=== PATIENT | male | born 1945 | race Caucasian/White ===

== ENCOUNTER 2020-04-23 04:07 | Inpatient (IN) | payer OTHER, SELFPAY ==
[2020-04-23] VITALS (30 sets, daily range): BP systolic 105–226; BP diastolic 59–141; PULSE 78–134; RESP 18–33; TEMP 36.6–37.2; O2SAT 91–97; BMI 25.7; BMI 27.4
--- NOTE | 2020-04-23 04:19 | DI.RAD.S_ITS ---
PROCEDURE: XR CHEST 1V INDICATIONS: Shortness of breath TECHNIQUE: One view of the chest was acquired. COMPARISON: None. FINDINGS: Surgical changes and devices: None. Lungs and pleura: Lungs are clear. No pleural effusions or pneumothorax. Mediastinum: Mediastinal contours appear normal. Heart size is normal. Bones and chest wall: No suspicious bony lesions. Overlying soft tissues appear unremarkable. IMPRESSION: No acute cardiopulmonary disease process. Dictated by: Kasey Flores MD, PhD on 04/23/2020 at 9:39 Approved by: Kasey Flores MD, PhD on 04/23/2020 at 9:40
--- NOTE | 2020-04-23 04:26 | ED.GENADULT ---
HPI - General Adult General Chief complaint: Shortness of Breath/Dyspnea Stated complaint: difficulty breathing, some coughing Time Seen by Provider: 04/23/20 04:11 Source: patient Mode of arrival: Ambulatory Limitations: no limitations History of Present Illness HPI narrative: Patient is a 74-year-old male history of persistent atrial fibrillation. Here for evaluation of approximately 24 hours of worsening dyspnea on exertion. He states that it woke him up from sleep at approximately 0100 hours in the morning. He denies any chest pain. He does have some lower extremity swelling. His on Coumadin because of the atrial fibrillation. States he has never been diagnosed with heart failure. No underlying lung issues. States that his symptoms yesterday were really only when he was walking around last night it woke him up from sleep. States that he is taking his medications as directed. Related Data Home Medications Medication Instructions Recorded Confirmed diltiazem HCl [DILT-XR] 240 mg PO DAILY 04/23/20 04/23/20 doxazosin 1 mg PO BEDTIME 04/23/20 04/23/20 hydrochlorothiazide 25 mg PO DAILY 04/23/20 04/23/20 lisinopril 5 mg PO DAILY 04/23/20 04/23/20 lovastatin 20 mg PO BEDTIME 04/23/20 04/23/20 metoprolol succinate 50 mg PO BID 04/23/20 04/23/20 warfarin 5 mg PO BEDTIME 04/23/20 04/23/20 Allergies Allergy/AdvReac Type Severity Reaction Status Date / Time Sulfonamide Allergy Unknown Uncoded 09/29/17 11:51 Review of Systems Constitutional Constitutional: Denies chills, Denies fatigue, Denies fever(s) and Denies headache(s) Eyes Eyes: Denies change in vision ENT Ears, Nose, Mouth, and Throat: Denies headache(s) and Denies sore throat Cardiovascular Cardiovascular: Denies chest pain, Reports dyspnea and Reports dyspnea on exertion Respiratory Respiratory: Denies cough, Reports dyspnea and Reports dyspnea on exertion Gastrointestinal Gastrointestinal: Denies abdominal pain, Denies nausea and Denies vomiting Genitourinary Genitourinary: Denies dysuria Genitourinary: Denies dysuria Musculoskeletal Musculoskeletal: Denies arthralgias and Denies myalgias Comments: Lower extremity edema Integumentary/Breasts Skin/Breast: Denies lesions and Denies rash Neurologic Neurologic: Denies behavioral changes and Denies headache(s) Psychiatric Psychiatric: Denies behavioral changes Endocrine Endocrine: Denies fatigue Hematologic/Lymphatic Hematologic/Lymphatic: Denies easy bleeding and Denies easy bruising Allergic/Immunologic Allergic/Immunologic: Denies urticaria Patient History Medical History Atrial fibrillation (Acute) Hypertension (Acute) Social History Smoking Status: Former smoker Smoking Status: Former smoker alcohol intake frequency: 0-2 drinks per day Substance Use Type: does not use Exam Initial Vital Signs Initial Vital Signs: Vital Signs Temperature 97.9 F 04/23/20 04:14 Pulse Rate 116 H 04/23/20 04:14 Respiratory Rate 30 H 04/23/20 04:14 Blood Pressure 215/141 H 04/23/20 04:14 Pulse Oximetry 94 04/23/20 04:14 Const General: ill appearing Limitations: mental status not altered HENMT Head: normal to inspection and normocephalic Chest Chest: No crepitus and No tenderness Resp Effort & Inspection: not labored and tachypneic Auscultation: rhonchi Cardio Rate: tachycardic Rhythm: abnormal rhythm GI Inspection: non-distended Palpation: soft Back/Spine/Pelvis Back: normal to inspection Skin Lesions: no lesions Rashes: no rashes Neuro General: patient alert, patient awake and patient oriented x3 Cognition: normal cognition Speech: speech normal Extrem General: capillary refill normal and edema Psych Appearance: grossly normal and well kempt Scores GCS Martita coma scale eye opening: Spontaneous [place] coma scale verbal response: Orientated [place] coma scale motor response: Obey commands Martita coma scale total score: 15 Course Orders Ordered: ED Orders 04/23/20 04:19 XR chest 1V Stat 04/23/20 04:20 EKG-12 Lead Stat 04/23/20 04:24 Complete Blood Count AUTO DIFF Stat 04/23/20 04:35 COVID19 -ED/INPAT/OR/L&D Stat 04/23/20 04:38 Comprehensive Metabolic Panel Stat D Dimer Stat Lipase Stat Magnesium Stat NT-proBNP (BNP-Adult 18+) Stat Partial Thromboplastin Time Stat Prothrombin Time INR Stat Troponin & CK Cardiac Panel Stat Potassium Chloride 40 meq/ (Sodium Chloride) 520 mls @ 130 mls/hr IV NOW ONE Stop: 04/23/20 09:11 Last Admin: 04/23/20 05:51 Dose: 130 mls/hr Documented by: CHARO Cosigned by: PAULINA Nitroglycerin (Nitroglycerin) 50 mg in 250 mls @ 3 mls/hr IV TITRATE SHANNAN; Protocol Last Titration: 04/23/20 06:56 Dose: 50 mcg/min, 15 mls/hr Documented by: Titration: 04/23/20 06:31 Dose: 40 mcg/min, 12 mls/hr Documented by: Titration: 04/23/20 06:06 Dose: 30 mcg/min, 9 mls/hr Documented by: Titration: 04/23/20 05:52 Dose: 20 mcg/min, 6 mls/hr Documented by: Admin: 04/23/20 05:30 Dose: 10 mcg/min, 3 mls/hr Documented by: CHARO Discontinued Medications Furosemide (Lasix) 40 mg IV NOW ONE Stop: 04/23/20 04:27 Last Admin: 04/23/20 04:31 Dose: 40 mg Documented by: CHARO Metoprolol Tartrate (Lopressor) 5 mg IV NOW ONE Stop: 04/23/20 04:27 Last Admin: 04/23/20 04:31 Dose: 5 mg Documented by: CHARO Nitroglycerin (Nitro-Bid) 0.5 inch TOP NOW ONE Stop: 04/23/20 04:27 Last Admin: 04/23/20 04:31 Dose: 0.5 inch Documented by: CHARO Potassium Chloride (Potassium Chloride) 40 meq PO NOW ONE Stop: 04/23/20 05:12 Last Admin: 04/23/20 05:28 Dose: 40 meq Documented by: CHARO Potassium Chloride (Potassium Chloride) 40 meq PO NOW ONE Stop: 04/23/20 05:27 Last Admin: 04/23/20 05:28 Dose: Not Given Documented by: CHARO Vital Signs Vital signs: Vital Signs - 8 hr 04/23/20 04:14 04/23/20 04:15 04/23/20 04:46 Temperature 97.9 F Pulse Rate 116 H 134 H 103 H Respiratory Rate 30 H 33 H 27 H Blood Pressure 215/141 H 226/113 H 213/103 H Pulse Oximetry 94 93 93 04/23/20 05:00 04/23/20 05:15 04/23/20 05:30 Temperature Pulse Rate 97 H 102 H 100 H Respiratory Rate 28 H 25 H 27 H Blood Pressure 191/103 H 187/103 H 205/94 H Pulse Oximetry 92 92 92 04/23/20 05:40 04/23/20 05:50 04/23/20 06:00 Temperature Pulse Rate 105 H 105 H 102 H Respiratory Rate 26 H 26 H 20 Blood Pressure 190/93 H 181/104 H 187/91 H Pulse Oximetry 93 93 92 04/23/20 06:10 04/23/20 06:20 04/23/20 06:30 Temperature Pulse Rate 122 H 110 H 114 H Respiratory Rate 30 H 25 H 30 H Blood Pressure 168/88 H 161/81 H 167/84 H Pulse Oximetry 92 92 04/23/20 06:40 Temperature Pulse Rate 105 H Respiratory Rate 27 H Blood Pressure 156/74 H Pulse Oximetry 93 Medical Decision Making Lab Data Lab results reviewed: Yes I reviewed the patient's lab results. Result diagrams: 04/23/20 04:24 04/23/20 04:38 Labs: Lab Results 04/23/20 04/23/20 04/23/20 Range/Units 04:24 04:35 04:38 WBC 8.3 (4.5-11.0) X10^3/uL RBC 4.22 L (4.5-5.9) X10^6/uL Hgb 15.2 (13.5-17.5) g/dL Hct 44.1 (41-53) % MCV 104.5 H (80-100) fL MCH 36.0 H (26-34) PG MCHC 34.5 (30-36) % RDW 13.8 (11.6-14.8) % Plt Count 169 (150-400) X10^3/uL Neut % (Auto) 72.9 (50-75) % Lymph % (Auto) 14.4 L (25-40) % [place] % (Auto) 9.8 (3-14) % Eos % (Auto) 1.9 L (2-4) % Baso % (Auto) 1.0 (0-2) % Neut # (Auto) 6100 (8931-0812) /uL Lymph # (Auto) 1200 (7889-8369) /uL [place] # (Auto) 800 (0-900) /uL Eos # (Auto) 200 (0-450) /uL Baso # (Auto) 100 (0-100) /uL PT 20.6 H (10.1-12.7) SECONDS INR 1.8 H (0.9-1.3) APTT 34 (26.4-36.2) SECONDS D-Dimer (<230) ng/mL Sodium (137-145) mmol/L Potassium (3.4-5.1) mmol/L Chloride (98-107) mmol/L Carbon Dioxide (22-32) mmol/L BUN (9-20) mg/dL Creatinine (0.66-1.25) mg/dL Estimated GFR (>60) mL/min BUN/Creatinine Ratio (6-22) Glucose (80-110) mg/dL Calcium (8.4-10.2) mg/dL Magnesium (1.6-2.3) mg/dL Total Bilirubin (0.2-1.3) mg/dL AST (17-59) IU/L ALT (<50) IU/L Alkaline Phosphatase (38-126) U/L Total Creatine Kinase (55-170) U/L CK-MB (CK-2) (<2.37) ng/mL CK-MB (CK-2) Rel Index (1.5-5.0) % Troponin I (0.01-0.034) ng/mL NT-Pro-B Natriuret Pep (<450) pg/mL Total Protein (6.3-8.2) g/dL Albumin (3.5-5.0) g/dL Globulin (1.7-4.1) g/dL Albumin/Globulin Ratio (1.0-2.8) Lipase (23-300) U/L COVID-19 PCR Negative (Negative) 04/23/20 04/23/20 04/23/20 Range/Units 04:38 04:38 04:38 WBC (4.5-11.0) X10^3/uL RBC (4.5-5.9) X10^6/uL Hgb (13.5-17.5) g/dL Hct (41-53) % MCV (80-100) fL MCH (26-34) PG MCHC (30-36) % RDW (11.6-14.8) % Plt Count (150-400) X10^3/uL Neut % (Auto) (50-75) % Lymph % (Auto) (25-40) % [place] % (Auto) (3-14) % Eos % (Auto) (2-4) % Baso % (Auto) (0-2) % Neut # (Auto) (7193-0453) /uL Lymph # (Auto) (9523-1903) /uL [place] # (Auto) (0-900) /uL Eos # (Auto) (0-450) /uL Baso # (Auto) (0-100) /uL PT (10.1-12.7) SECONDS INR (0.9-1.3) APTT (26.4-36.2) SECONDS D-Dimer 209 (<230) ng/mL Sodium 134 L (137-145) mmol/L Potassium 2.4 L* (3.4-5.1) mmol/L Chloride 93 L (98-107) mmol/L Carbon Dioxide 38 H (22-32) mmol/L BUN 9 (9-20) mg/dL Creatinine 0.76 (0.66-1.25) mg/dL Estimated GFR > 60.0 (>60) mL/min BUN/Creatinine Ratio 11.8 (6-22) Glucose 121 H (80-110) mg/dL Calcium 8.9 (8.4-10.2) mg/dL Magnesium 2.1 (1.6-2.3) mg/dL Total Bilirubin 1.8 H (0.2-1.3) mg/dL AST 30 (17-59) IU/L ALT 18 (<50) IU/L Alkaline Phosphatase 77 (38-126) U/L Total Creatine Kinase 115 (55-170) U/L CK-MB (CK-2) 2.01 (<2.37) ng/mL CK-MB (CK-2) Rel Index 1.7 (1.5-5.0) % Troponin I 0.015 (0.01-0.034) ng/mL NT-Pro-B Natriuret Pep 2070 H (<450) pg/mL Total Protein 6.9 (6.3-8.2) g/dL Albumin 4.1 (3.5-5.0) g/dL Globulin 2.8 (1.7-4.1) g/dL Albumin/Globulin Ratio 1.5 (1.0-2.8) Lipase 69 (23-300) U/L COVID-19 PCR (Negative) Point of Care Testing Glucose POC 113 Point of care testing: Point of Care Testing Glucose POC 113 Imaging Data Chest x-ray: Radiologist's Impression: Diffuse coarsening of the interstitial markings, likely chronic Patchy consolidation within the right middle lobe compatible with superimposed infiltrate. Follow-up chest radiograph after appropriate treatment to document resolution Cardiomegaly ECG Data Attestation: I personally reviewed and interpreted this ECG as follows: Prior ECG tracings: not available for review Interpretation: AFib Ventricular rate 110 Normal axis PVC Nonspecific ST T wave changes MDM Narrative Medical decision making narrative: Patient arrived in atrial fibrillation and tachycardic also hypertensive. He was given metoprolol which did bring his heart rate down. He was also given 40 mg of Lasix and nitro paste. This improved his blood pressure somewhat however upon re-evaluation patient states that he still did not feel better. Patient was then started on a nitro drip. BNP elevated, chest x-ray and physical exam concerning for heart failure. Patient not in extremities respiratory ulloa it was not placed on BiPAP. I did discuss the case with Dr. Mohamud with cardiology who recommended continuing the above modalities. Recommend admitting to the hospital for echocardiogram and further evaluation. I then discussed the case with SUNDAR Rodgers the night hospitalist who evaluated the patient the emergency department. Will admit. Patient also hypokalemic. His potassium was replaced. Critical Care Time Critical Care Time Critical Care Time: Yes Total Critical Care Time: 45 Attestation: The high probability of a clinically significant, sudden or life threatening deterioration of the cardiovascular system(s) required my full and direct attention, intervention and personal management. The aggregate critical care time was [45] minutes. This time is in addition to time spent performing reported procedures but includes the following: [x] Data Review and interpretation [x] Patient assessment and monitoring of vital signs [x] Documentation [x] Medication orders and management Discharge Plan Departure Patient Disposition: Admitted As Inpatient Clinical Impression: CHF (congestive heart failure) Qualifiers: Heart failure type: unspecified Heart failure chronicity: unspecified Qualified Code(s): I50.9 - Heart failure, unspecified A-fib Qualifiers: Atrial fibrillation type: unspecified Qualified Code(s): I48.91 - Unspecified atrial fibrillation Hypertension Qualifiers: Hypertension type: unspecified Qualified Code(s): I10 - Essential (primary) hypertension Admit Date/Time: 04/23/20 06:46 Admit Provider: Yanet Rodgers
[2020-04-23 04:31] LABS: Add Manual Diff / Slide Review NO; Basophils Absolute Auto 100 /uL (0-100); Eosinophils Absolute Auto 200 /uL (0-450); Eosinophils Percent Auto 1.9 % (2-4); Hematocrit 44.1 % (41-53); Hemoglobin 15.2 g/dL (13.5-17.5); Lymphocytes Absolute Auto 1200 /uL (1100-4500); Lymphocytes Percent Auto 14.4 % (25-40); Mean Corpuscular HGB Conc 34.5 % (30-36); Mean Corpuscular Volume 104.5 fL (80-100); Monocytes Absolute Auto 800 /uL (0-900); Monocytes Percent Auto 9.8 % (3-14); Neutrophils Absolute Auto 6100 /uL (1500-7000); Neutrophils Percent Auto 72.9 % (50-75); Platelet Count 169 X10^3/uL (150-400); Red Blood Cell Count 4.22 X10^6/uL (4.5-5.9); Red Cell Distribution Width 13.8 % (11.6-14.8); White Blood Cell Count 8.3 X10^3/uL (4.5-11.0)
[2020-04-23] MEDS: FUROSEMIDE 40 MG/4 ML VIAL IV (04:31)
[2020-04-23] MEDS: NITROGLYCERIN OINT 1 INCH/GM OINT...G. 0.5 INCH TOP (04:31)
[2020-04-23] MEDS: METOPROLOL TARTRATE 5 MG/5 ML INJ IV (04:31)
[2020-04-23 04:55] LABS: INR 1.8 (0.9-1.3); Prothrombin Time 20.6 SECONDS (10.1-12.7)
[2020-04-23 04:58] LABS: PTT Partial Thromboplastin Tim 34 SECONDS (26.4-36.2)
[2020-04-23 05:00] LABS: Alanine Aminotransferase 18 IU/L (<50); Albumin 4.1 g/dL (3.5-5.0); Albumin Globulin Ratio 1.5 (1.0-2.8); Alkaline Phosphatase 77 U/L (38-126); Aspartate Aminotransferase 30 IU/L (17-59); BUN Creatinine Ratio 11.8 (6-22); Bilirubin Total 1.8 mg/dL (0.2-1.3); Blood Urea Nitrogen 9 mg/dL (9-20); Calcium 8.9 mg/dL (8.4-10.2); Carbon Dioxide 38 mmol/L (22-32); Chloride 93 mmol/L (98-107); Creatine Kinase 115 U/L (55-170); Estimated Glomerular Filt Rate > 60.0 mL/min (>60); Globulin 2.8 g/dL (1.7-4.1); Glucose 121 mg/dL (80-110); HEMOLYSIS < 15 (0-50); Lipase 69 U/L (23-300); Sodium 134 mmol/L (137-145); Total Protein 6.9 g/dL (6.3-8.2)
[2020-04-23 05:05] LABS: Potassium 2.4 mmol/L (3.4-5.1)
[2020-04-23 05:08] LABS: COVID19 -Nasal RAPID Negative (Negative)
[2020-04-23 05:11] LABS: NT-proBNP (BNP-Adult 18+) 2070 pg/mL (<450); Troponin I 0.015 ng/mL (0.01-0.034)
[2020-04-23 05:15] LABS: CKMB % Relative Index 1.7 % (1.5-5.0); Creatine Kinase MB 2.01 ng/mL (<2.37)
[2020-04-23] MEDS: POTASSIUM CHLORIDE 20 MEQ/15 ML UDC 40 MEQ PO (05:28)
[2020-04-23] MEDS: NITROGLYCERIN 50 MG/250 ML INFUS..BTL IV (05:30)
[2020-04-23 05:49] LABS: D Dimer 209 ng/mL (<230)
[2020-04-23] MEDS: POTASSIUM CHLORIDE 40 MEQ in SODIUM CHLORIDE 0.9% 500 ML 130 ML IV ×2 (05:51→14:36)
[2020-04-23 06:45] LABS: Magnesium 2.1 mg/dL (1.6-2.3)
--- NOTE | 2020-04-23 07:08 | PC.NURSE ---
Titrate Nitro gtt to have SBP around 140s per Dr. Fraser
--- NOTE | 2020-04-23 07:11 | DI.ECHO.S_ITS ---
[place] +---------+ [facility] +---------+ : : [address] : : : : [id number] : : : : Phone: [phone] Echocardiogram Report + + :Name: LEONARD SANDRA JR Study Date: 04/23/2020 Height: 74 in : :[facility] Weight: 200 lb : : Gender: Male BSA: 2.2 m2 : :: 1945 Age: 74 yrs BP: 150/87 mmHg: :Reason For Study: CONGESTIVE HEART FAILURE : :Ordering Physician: Karen CROWEformed By: Emani Ervin : :Referring: DENNY CROWE : + + Interpretation Summary Afib with RVR; heart rate is 80-114 bpm. Normal LV size and wall thickness; normal wall motion and LV systolic function. EF is 55-60%. Severe biatrial enlargement; mild RV enlargement. Aortic valve leaflets are mildly thickened and calcified with moderate associated AI. Otherwise no significant valvular abnormalities. No prior study available for comparison. Procedure: A two-dimensional transthoracic echocardiogram with color flow and Doppler was performed. The study quality was technically adequate. There is no prior echocardiogram noted for this patient. The patient was in atrial fibrillation with heart rates between 80-114 bpm during the exam. Left Ventricle: The left ventricle is normal in size and wall thickness. The ejection fraction is estimated to be 55-60%. Diastolic function could not be accurately assessed due to atrial fibrillation. Right Ventricle: The right ventricle is mildly dilated. Right ventricular systolic function is mildly reduced. Atria: The left atrium is severely dilated. The right atrium is severely dilated. There is no Doppler evidence for an interatrial shunt. Mitral Valve: There is a flat closure plane of the the mitral valve leaflets. There is trace mitral regurgitation. Aortic Valve: The aortic valve is trileaflet. The aortic valve opens well. There is no aortic valve stenosis. There is moderate aortic regurgitation. Tricuspid Valve: The tricuspid valve is normal in structure and function. There is mild to moderate tricuspid regurgitation. Pulmonic Valve: The pulmonic valve leaflets are thin and pliable; valve motion is normal. There is no pulmonic valvular regurgitation. Great Vessels: The aortic root is not well visualized but is probably normal size. The dimensions of the ascending aorta are normal. The IVC is of normal diameter and collapses greater than 50% with a sniff. This suggests a low right atrial pressure of 3 mm Hg. Pericardium/ Pleura There is no pericardial effusion. There is no pleural effusion. MMode/2D Measurements & Calculations LVIDd: 4.7 cm LVOT diam: 2.1 cm LVIDs: 2.8 cm asc Aorta Diam: 3.3 cm FS: 39.8 % Ao Arch Diam (Prox Trans): 3.4 cm EPSS: 1.5 cm IVSd: 0.89 cm LVPWd: 0.87 cm LV hudson. diameter/BSA (cm/m^2): 2.2 LV sys. diameter/BSA (cm/m^2): 1.3 LA A2 area: 34.1 cm2 RA long axis: 6.0 cm LA A4 area: 28.3 cm2 RA area: 31.6 cm2 LA length (vol): 6.1 cm RA vol: 141.3 ml LA vol: 133.1 ml RA : 65.0 ml/m2 LA vol index: 61.3 ml/m2 IVC diam: 2.4 cm RVD1 (basal): 4.2 cm TAPSE: 1.5 cm Doppler Measurements & Calculations Ao V2 max: 125.1 cm/sec LVOT Max Jocelyn: 86.4 cm/sec Ao V2 mean: 80.3 cm/sec LV V1 max P.0 mmHg Ao max P.3 mmHg LV V1 VTI: 17.3 cm Ao mean P.0 mmHg LIZABETH(I,D): 3.2 cm2 Ao V2 VTI: 19.0 cm LIZABETH(V,D): 2.4 cm2 sev ratio: 0.91 LIZABETH indexed to BSA (cm^2/m^2): 1.5 Med Peak E' Jocelyn: 77.4 cm/sec TR max jocelyn: 351.4 cm/sec Lat Peak E' Jocelyn: 7.5 cm/sec TR max P.9 mmHg MV dec time: 0.15 sec PA V2 max: 80.1 cm/sec MV P1/2t: 47.4 msec PA V2 mean: 52.2 cm/sec PA mean P.3 mmHg PA pr(Accel): 43.0 mmHg MV P1/2t max jocelyn: 108.3 cm/sec SV(LVOT): 61.2 ml MVA(P1/2t): 4.6 cm2 Electronically signed by: Cyndie Herbert M.D. on Reading Physician:04/23/2020 05:22 PM
--- NOTE | 2020-04-23 07:36 | PM.HP.1 ---
History of Present Illness History of Present Illness Date Patient Seen: 04/23/20 Time Patient Seen: 06:30 Chief complaint: difficulty breathing, some coughing Narrative: Agustin Miller is a 74-year-old male history of persistent atrial fibrillation anticoagulated on warfarin and hypertension presented to the emergency department with an approximate 24 hour duration of worsening dyspnea on exertion. He states that it woke him up from sleep at approximately 0100 hours in the morning. He denies any chest pain, abdominal pain, frequent urination or dysuria except for after they gave him the Lasix he states that he has been peeing a lot, denies diarrhea are or constipation, denies peripheral extremity neuropathy. He does agree that he has had some lower extremity swelling. States he has has had atrial fibrillation since his early 40s, he states he has had a CT of his heart as well as an echocardiogram but this was many years ago and has never been diagnosed with heart failure. No underlying lung issues. States that his symptoms yesterday were really only when he was walking around last night it woke him up from sleep. States that he is taking his medications as directed. Patient sees a primary care provider with the [facility]. In the emergency department his blood pressure was 215/141 and he was administered Lopressor 5 mg IV and they applied a nitro paste on him. He was eventually placed on a nitro drip to help control his blood pressure. His potassium was 2.4 and he was given oral potassium 40 mEq as well as IV potassium 40 mEq. He is currently afebrile and at this time his blood pressure is 155/71, heart rate 104, respiratory rate 21, oxygen saturation of 91% on room air, he weighs 90.7 kg with a BMI of 25.7. WBC was 8.3, RBC 4.22, hemoglobin 15.2, hematocrit 44.1, platelet count is 169, sign INR is 1.8, sodium 134, potassium at time of admission was 2.4, chloride 93,, bicarb 38, creatinine 0.76, BUN 9, GFR is greater than 60, glucose 121, magnesium is 2.1, calcium 8.9, total bilirubin is 1.8, rest of his liver enzymes are within normal limits, troponin was 0.015, proBNP 20 70, lipid panel is pending, TSH is pending, and COVID-19 PCR is negative. Patient History Medical History Anticoagulated on warfarin (Acute) Atrial fibrillation (Acute) Hypertension (Acute) Surgical History Hx of hernia repair (Acute) Hx of tonsillectomy (Acute) Family & Social History Family History Father Myocardial infarction Mother Dementia Safety & Behavioral: Feels Safe in Current Yes Environment Tobacco & Substance use: Smoking Status Former smoker alcohol intake frequency 0-2 drinks per day Substance Use Type does not use Meds Home Medications and Allergies Home Medications Medication Instructions Recorded Confirmed Type diltiazem HCl [DILT-XR] 240 mg PO DAILY 04/23/20 04/23/20 History doxazosin 1 mg PO BEDTIME 04/23/20 04/23/20 History hydrochlorothiazide 25 mg PO DAILY 04/23/20 04/23/20 History lisinopril 5 mg PO DAILY 04/23/20 04/23/20 History lovastatin 20 mg PO BEDTIME 04/23/20 04/23/20 History metoprolol succinate 50 mg PO BID 04/23/20 04/23/20 History warfarin 5 mg PO BEDTIME 04/23/20 04/23/20 History Allergies Allergy/AdvReac Type Severity Reaction Status Date / Time Sulfa (Sulfonamide Allergy Unknown Verified 04/23/20 07:16 Antibiotics) Review of Systems Review of Systems ROS: Yes All systems reviewed with the patient and are negative except as otherwise documented Exam Vital Signs (past 8 hours): - 04/23/20 04:14 04/23/20 04:15 04/23/20 04:46 Temperature 97.9 F Pulse Rate 116 H 134 H 103 H Respiratory Rate 30 H 33 H 27 H Blood Pressure 215/141 H 226/113 H 213/103 H Pulse Oximetry 94 93 93 04/23/20 05:00 04/23/20 05:15 04/23/20 05:30 Temperature Pulse Rate 97 H 102 H 100 H Respiratory Rate 28 H 25 H 27 H Blood Pressure 191/103 H 187/103 H 205/94 H Pulse Oximetry 92 92 92 04/23/20 05:40 04/23/20 05:50 04/23/20 06:00 Temperature Pulse Rate 105 H 105 H 102 H Respiratory Rate 26 H 26 H 20 Blood Pressure 190/93 H 181/104 H 187/91 H Pulse Oximetry 93 93 92 04/23/20 06:10 04/23/20 06:20 04/23/20 06:30 Temperature Pulse Rate 122 H 110 H 114 H Respiratory Rate 30 H 25 H 30 H Blood Pressure 168/88 H 161/81 H 167/84 H Pulse Oximetry 92 92 04/23/20 06:40 04/23/20 06:50 04/23/20 07:00 Temperature Pulse Rate 105 H 118 H 104 H Respiratory Rate 27 H 25 H 21 Blood Pressure 156/74 H 179/89 H 155/71 H Pulse Oximetry 93 91 91 Oxygen Delivery Method Room Air Narrative Exam Narrative: Gen: Alert, oriented, well-developed 74 y.o. male, NAD HEENT: normocephalic, atraumatic, conjunctiva clear, sclera non-icteric, oral mucosa pink and moist Neck: supple, full ROM, no JVD, trachea is midline Resp: Lungs CTA, non-labored breathing CV: tachy, no murmur or rubs Abd: soft, non-tender, normoactive BTs Skin: no lesions or rashes, dry and intact Neuro: Alert and oriented X 4 w/no focal deficits. Speech clear and coherent. Extremities: +2 pitting edema, moves all 4 extremities, is ambulatory, negative Shannan?s sign Psyche: normal mood and affect. Objective Labs Result Diagrams: 04/23/20 04:24 04/23/20 04:38 Labs: Laboratory Results - last 24 hr 04/23/20 04/23/20 04/23/20 04:24 04:35 04:38 WBC 8.3 RBC 4.22 L Hgb 15.2 Hct 44.1 MCV 104.5 H MCH 36.0 H MCHC 34.5 RDW 13.8 Plt Count 169 Neut % (Auto) 72.9 Lymph % (Auto) 14.4 L [place] % (Auto) 9.8 Eos % (Auto) 1.9 L Baso % (Auto) 1.0 Neut # (Auto) 6100 Lymph # (Auto) 1200 [place] # (Auto) 800 Eos # (Auto) 200 Baso # (Auto) 100 PT 20.6 H INR 1.8 H APTT 34 D-Dimer Sodium Potassium Chloride Carbon Dioxide BUN Creatinine Estimated GFR BUN/Creatinine Ratio Glucose Calcium Magnesium Total Bilirubin AST ALT Alkaline Phosphatase Total Creatine Kinase CK-MB (CK-2) CK-MB (CK-2) Rel Index Troponin I NT-Pro-B Natriuret Pep Total Protein Albumin Globulin Albumin/Globulin Ratio Lipase COVID-19 PCR Negative 04/23/20 04/23/20 04/23/20 04:38 04:38 04:38 WBC RBC Hgb Hct MCV MCH MCHC RDW Plt Count Neut % (Auto) Lymph % (Auto) [place] % (Auto) Eos % (Auto) Baso % (Auto) Neut # (Auto) Lymph # (Auto) [place] # (Auto) Eos # (Auto) Baso # (Auto) PT INR APTT D-Dimer 209 Sodium 134 L Potassium 2.4 L* Chloride 93 L Carbon Dioxide 38 H BUN 9 Creatinine 0.76 Estimated GFR > 60.0 BUN/Creatinine Ratio 11.8 Glucose 121 H Calcium 8.9 Magnesium 2.1 Total Bilirubin 1.8 H AST 30 ALT 18 Alkaline Phosphatase 77 Total Creatine Kinase 115 CK-MB (CK-2) 2.01 CK-MB (CK-2) Rel Index 1.7 Troponin I 0.015 NT-Pro-B Natriuret Pep 2070 H Total Protein 6.9 Albumin 4.1 Globulin 2.8 Albumin/Globulin Ratio 1.5 Lipase 69 COVID-19 PCR Assessment & Plan Assessment & Plan narrative: Agustin Miller is admitted ICU observation for managment of a hypertensive urgency and new onset CHF exacerbation. Hypertensive urgency, acute, present on admission -patient's presenting blood pressure was 215/141 when he presented to the emergency department. They administered IV Lopressor 5 mg, applied a nitro patch and eventually put him on a nitro drip to better control his blood pressure. Patient will be tapered off his nitro drip per protocol. New onset CHF, acute, present on admission -patient exhibits clinical signs of volume overload with lower extremity swelling and a proBNP of over 2000. He was given IV Lasix 40 mg in the ED. -I have ordered a complete echocardiogram for today Severe hypokalemia of 2.4, acute, present on admission -patient was administered IV potassium 40 mEq and oral potassium 40 mEq in the emergency department. Will repeat potassium at 1:00 p.m. Atrial fibrillation anticoagulated on warfarin, currently subtherapeutic -patient's INR is 1.8 -patient takes warfarin 2.5 mg on 2 days of the week and and 5 mg on 5 days of the week. He will be given 7.5 mg today and will resume 5 mg daily through and then on Wednesday will be taking 2.5 mg. -He will have daily PT INRs -Medical records from his PCP have been requested. VTE prophylaxis: Wells risk score: 1.5 Continue warfarin, Bilateral SCDs Consults: none. Patient is observation status in the ICU due to being on a cardiac drip, I do not anticipate his stay will exceed 2 midnights. FEN: IV saline lock, Heart healthy diet, BMP and magnesium in the am. Dispo: probable discharge to home Code Status: Full code as discussed with patient and his Scores Wells' Criteria for PE Clinical signs and symptoms of DVT: No PE is #1 Dx or equally likely: No Heart rate > 100: Yes Immobilization at least 3 days or surg in previous 4 weeks: No History of PE or DVT: No Hemoptysis: No Malignancy w/Treatment within 6 months or palliative: No Wells' PE Score total: 1.5 Quality VTE Deep Vein Thrombosis/Pulmonary Embolism Present on Admission: No
[2020-04-23 07:41] LABS: Cholesterol 145 mg/dL (140-199); HDL Cholesterol 60 mg/dL (40-60); LDL Cholesterol Calculated 73 mg/dL (<100); Triglycerides 62 mg/dL (35-150)
[2020-04-23] MEDS: WARFARIN 5 MG TABLET 7.5 MG PO (08:39)
[2020-04-23] MEDS: lisinopriL 5 MG TABLET PO (08:40)
[2020-04-23] MEDS: ASPIRIN EC 81 MG TABLET PO (08:40)
[2020-04-23] MEDS: dilTIAZem CD 240 MG CAP PO (08:40)
[2020-04-23] MEDS: METOPROLOL ER 50 MG TABLET PO ×2 (08:40→20:11)
[2020-04-23 08:58] LABS: INR 1.9 (0.9-1.3); Prothrombin Time 22.2 SECONDS (10.1-12.7)
--- NOTE | 2020-04-23 09:37 | PC.NURSE ---
Addendum entered by Judith Forde R.N. 04/23/20 14:44: Pt desaturating to 82-84% when sleeping, placed on 2L NC with sats increasing to 92-95%. Dr. Donato updated. K rider 40 meq currently infusing for K of 2.8. Original Note: Admit Note Patient arrived to room 228 at 0720 from ER via stretcher. Walked to bed SBA, steady on feet. Denied pain, denied nausea. Reports shortness of breath improved from last night, RR in the low 20s. Coarse crackles to bilateral bases noted, SpO2 92-94% RA. Afib RVR on arrival with rate in the 100-120s. BP in the 140s systolic with nitro gtt infusing at 50 mcg/min. PO meds given as scheduled and nitro gtt titrated to off at 0930. BP currently 144/71. HR down to the 80s at rest. 1-2+ pitting edema to BLEs. Oriented to room and to bed/tv/call light controls. Call light within reach. Clothing and glasses with pt, declines to lock up any valuables.
[2020-04-23 14:01] LABS: BUN Creatinine Ratio 12.5 (6-22); Blood Urea Nitrogen 10 mg/dL (9-20); Calcium 8.4 mg/dL (8.4-10.2); Chloride 93 mmol/L (98-107); Estimated Glomerular Filt Rate > 60.0 mL/min (>60); Glucose 120 mg/dL (80-110); HEMOLYSIS < 15 (0-50); Potassium 2.8 mmol/L (3.4-5.1); Sodium 133 mmol/L (137-145)
[2020-04-23 14:07] LABS: Carbon Dioxide 38 mmol/L (22-32)
[2020-04-23] MEDS: POTASSIUM CHLORIDE 20 MEQ TAB 40 MEQ PO ×2 (16:43→20:10)
[2020-04-23] MEDS: LOVASTATIN 20 MG TABLET PO (16:43)
--- NOTE | 2020-04-23 17:31 | P.PN_ITS ---
Subjective Subjective Date Patient Seen: 04/23/20 Interval history: Brief progress note: Patient seen and examined. Physical exam unchanged other than lower extremity bilateral pitting edema now to ankles that is resolving. Agree with admitting provider's assessment and plan. Continue home metoprolol succinate 50 mg twice daily and diltiazem 240 mg daily. Patient's atrial fibrillation now rate controlled in the 80s. Hypertensive urgency resolved. Patient was titrated off of nitroglycerin gtt and lisinopril increased from 5 mg to 20 mg daily for better blood pressure control. Echocardiogram ordered and pending. Continue IV diuresis, fluid restriction, low-sodium diet, strict I&Os and daily weights. Exam Vital Signs (past 8 hours): - 04/23/20 12:00 04/23/20 14:44 04/23/20 15:30 Temperature 98.9 F 98.7 F Pulse Rate 86 96 H Respiratory Rate 20 20 Blood Pressure 150/87 H 176/86 H Pulse Oximetry 94 93 96 Oxygen Delivery Method Room Air,Nasal Cannula Oxygen Flow Rate 2 Objective Labs Result Diagrams: 04/24/20 04:41 04/24/20 04:41 Labs: Laboratory Results - last 24 hr 04/23/20 04/23/20 04/23/20 04:24 04:35 04:38 WBC 8.3 RBC 4.22 L Hgb 15.2 Hct 44.1 MCV 104.5 H MCH 36.0 H MCHC 34.5 RDW 13.8 Plt Count 169 Neut % (Auto) 72.9 Lymph % (Auto) 14.4 L [place] % (Auto) 9.8 Eos % (Auto) 1.9 L Baso % (Auto) 1.0 Neut # (Auto) 6100 Lymph # (Auto) 1200 [place] # (Auto) 800 Eos # (Auto) 200 Baso # (Auto) 100 PT 20.6 H INR 1.8 H APTT 34 D-Dimer Sodium Potassium Chloride Carbon Dioxide BUN Creatinine Estimated GFR BUN/Creatinine Ratio Glucose Calcium Magnesium Total Bilirubin AST ALT Alkaline Phosphatase Total Creatine Kinase CK-MB (CK-2) CK-MB (CK-2) Rel Index Troponin I NT-Pro-B Natriuret Pep Total Protein Albumin Globulin Albumin/Globulin Ratio Triglycerides Cholesterol LDL Cholesterol, Calc HDL Cholesterol Lipase TSH Nasal Screen MRSA (PCR) COVID-19 PCR Negative 04/23/20 04/23/20 04/23/20 04:38 04:38 04:38 WBC RBC Hgb Hct MCV MCH MCHC RDW Plt Count Neut % (Auto) Lymph % (Auto) [place] % (Auto) Eos % (Auto) Baso % (Auto) Neut # (Auto) Lymph # (Auto) [place] # (Auto) Eos # (Auto) Baso # (Auto) PT INR APTT D-Dimer 209 Sodium 134 L Potassium 2.4 L* Chloride 93 L Carbon Dioxide 38 H BUN 9 Creatinine 0.76 Estimated GFR > 60.0 BUN/Creatinine Ratio 11.8 Glucose 121 H Calcium 8.9 Magnesium 2.1 Total Bilirubin 1.8 H AST 30 ALT 18 Alkaline Phosphatase 77 Total Creatine Kinase 115 CK-MB (CK-2) 2.01 CK-MB (CK-2) Rel Index 1.7 Troponin I 0.015 NT-Pro-B Natriuret Pep 2070 H Total Protein 6.9 Albumin 4.1 Globulin 2.8 Albumin/Globulin Ratio 1.5 Triglycerides Cholesterol LDL Cholesterol, Calc HDL Cholesterol Lipase 69 TSH Nasal Screen MRSA (PCR) COVID-19 PCR 04/23/20 04/23/20 04/23/20 04:38 04:38 08:08 WBC RBC Hgb Hct MCV MCH MCHC RDW Plt Count Neut % (Auto) Lymph % (Auto) [place] % (Auto) Eos % (Auto) Baso % (Auto) Neut # (Auto) Lymph # (Auto) [place] # (Auto) Eos # (Auto) Baso # (Auto) PT 22.2 H INR 1.9 H APTT D-Dimer Sodium Potassium Chloride Carbon Dioxide BUN Creatinine Estimated GFR BUN/Creatinine Ratio Glucose Calcium Magnesium Total Bilirubin AST ALT Alkaline Phosphatase Total Creatine Kinase CK-MB (CK-2) CK-MB (CK-2) Rel Index Troponin I NT-Pro-B Natriuret Pep Total Protein Albumin Globulin Albumin/Globulin Ratio Triglycerides 62 Cholesterol 145 LDL Cholesterol, Calc 73 HDL Cholesterol 60 Lipase TSH 0.870 Nasal Screen MRSA (PCR) COVID-19 PCR 04/23/20 04/23/20 08:10 13:43 WBC RBC Hgb Hct MCV MCH MCHC RDW Plt Count Neut % (Auto) Lymph % (Auto) [place] % (Auto) Eos % (Auto) Baso % (Auto) Neut # (Auto) Lymph # (Auto) [place] # (Auto) Eos # (Auto) Baso # (Auto) PT INR APTT D-Dimer Sodium 133 L Potassium 2.8 L Chloride 93 L Carbon Dioxide 38 H BUN 10 Creatinine 0.80 Estimated GFR > 60.0 BUN/Creatinine Ratio 12.5 Glucose 120 H Calcium 8.4 Magnesium Total Bilirubin AST ALT Alkaline Phosphatase Total Creatine Kinase CK-MB (CK-2) CK-MB (CK-2) Rel Index Troponin I NT-Pro-B Natriuret Pep Total Protein Albumin Globulin Albumin/Globulin Ratio Triglycerides Cholesterol LDL Cholesterol, Calc HDL Cholesterol Lipase TSH Nasal Screen MRSA (PCR) Negative for mrsa COVID-19 PCR Quality VTE Deep Vein Thrombosis/Pulmonary Embolism Present on Admission: No
[2020-04-23 19:50] LABS: HEMOLYSIS < 15 (0-50)
[2020-04-23] MEDS: lisinopriL 20 MG TABLET PO (20:09)
[2020-04-23] MEDS: DOXAZOSIN 2 MG TABLET 1 MG PO (20:12)
[2020-04-24] VITALS (51 sets, daily range): BP systolic 156–192; BP diastolic 83–112; PULSE 82–122; RESP 15–35; TEMP 36.8–37.3; O2SAT 86–97
--- NOTE | 2020-04-24 01:15 | PC.NURSE ---
Copping Machine Operator Notes-At 2340 patient was resting in bed, 13 beat run VT noted on monitor, denies chest pain, shortness of breath, or palpitations. A-fib rate 80s-90s, does increase to 130s while ambulating to BR, denies dizziness. BP 163/79, SpO2 94% on 2L, 2-3 second apnea noted while sleeping, will desat to 86%, recovers quickly, crackles bases.
[2020-04-24 05:13] LABS: Add Manual Diff / Slide Review NO; Basophils Absolute Auto 200 /uL (0-100); Eosinophils Absolute Auto 100 /uL (0-450); Eosinophils Percent Auto 1.6 % (2-4); Hematocrit 40.9 % (41-53); Hemoglobin 13.8 g/dL (13.5-17.5); INR 2.6 (0.9-1.3); Lymphocytes Absolute Auto 500 /uL (1100-4500); Lymphocytes Percent Auto 8.2 % (25-40); Mean Corpuscular HGB Conc 33.9 % (30-36); Mean Corpuscular Hemoglobin 35.6 PG (26-34); Mean Corpuscular Volume 105.3 fL (80-100); Monocytes Absolute Auto 900 /uL (0-900); Monocytes Percent Auto 14.6 % (3-14); Neutrophils Absolute Auto 4400 /uL (1500-7000); Neutrophils Percent Auto 71.6 % (50-75); Platelet Count 141 X10^3/uL (150-400); Prothrombin Time 29.4 SECONDS (10.1-12.7); Red Blood Cell Count 3.88 X10^6/uL (4.5-5.9); Red Cell Distribution Width 13.9 % (11.6-14.8); White Blood Cell Count 6.1 X10^3/uL (4.5-11.0)
[2020-04-24 05:21] LABS: Blood Urea Nitrogen 10 mg/dL (9-20); Calcium 8.5 mg/dL (8.4-10.2); Carbon Dioxide 38 mmol/L (22-32); Chloride 97 mmol/L (98-107); Estimated Glomerular Filt Rate > 60.0 mL/min (>60); Glucose 108 mg/dL (80-110); HEMOLYSIS < 15 (0-50); Magnesium 2.1 mg/dL (1.6-2.3); Potassium 3.2 mmol/L (3.4-5.1); Sodium 136 mmol/L (137-145)
[2020-04-24] MEDS: POTASSIUM CHLORIDE 40 MEQ in SODIUM CHLORIDE 0.9% 500 ML 130 ML IV (07:45)
[2020-04-24] MEDS: POTASSIUM CHLORIDE 20 MEQ TAB 40 MEQ PO ×2 (07:47→17:17)
[2020-04-24] MEDS: METOPROLOL ER 50 MG TABLET PO (07:48)
[2020-04-24] MEDS: lisinopriL 20 MG TABLET PO (07:48)
[2020-04-24] MEDS: ASPIRIN EC 81 MG TABLET PO (07:48)
[2020-04-24] MEDS: FUROSEMIDE 40 MG/4 ML VIAL IV ×2 (07:49→17:16)
[2020-04-24] MEDS: dilTIAZem CD 240 MG CAP PO (07:50)
--- NOTE | 2020-04-24 10:54 | PC.NURSE ---
Addendum entered by Shira Rincon R.N. 04/24/20 13:14: 1230-Pt noted to have increased WOB after ambulating from BR with this RN, this is markedly worse than observed this AM. Update to Dr Donato. CTA ordered and obtained. Awaiting results. Spo2 93% RA, dips when falling asleep. Pt likely needs sleep study. Afib on tele. Original Note: Am shift Pt is A/o x4, elevated BP's. K rider and PO K+ given. Pt is eager to d/c when able. in to get update on POC. SBA to BR. Denies pain, IV SL infusing without difficulty. Using call light for needs. Plan to replace K+ and recheck BP this afternoon.
--- NOTE | 2020-04-24 12:25 | DI.CT.S_ITS ---
PROCEDURE: CT ANGIO CHEST INDICATIONS: SOB, Afib subtherapeutic r/o PE TECHNIQUE: After the administration of intravenous contrast, 2 mm thick sections acquired from the pulmonary apices to the posterior costophrenic angles. 3-dimensional maximum intensity projection (MIP) coronal and sagittal reformats were then acquired through the thorax. For radiation dose reduction, the following was used: automated exposure control, adjustment of mA and/or kV according to patient size. COMPARISON: None. FINDINGS: Image quality: Excellent. Pulmonary arteries: Pulmonary arteries are normal in size, and demonstrate no intraluminal filling defects to suggest central pulmonary embolism. Lungs and pleura: Lungs are clear except for mild atelectasis adjacent to bilateral pleural effusions. There are bilateral small pleural effusions which measure water in density and appear free-flowing. No pneumothorax. Central and peripheral airways are patent. Mediastinum: Heart size is normal, without pericardial effusion. No mediastinal or hilar adenopathy. Thoracic aorta is normal in caliber and enhancement. Esophagus is normal in caliber, without hiatal hernia. Bones and chest wall: No suspicious bony lesions. Ribs and thoracic spine appear intact throughout. Thyroid gland appears normal where well seen . No axillary or supraclavicular adenopathy. Abdomen: Visualized upper abdominal solid organs appear normal in the early arterial phase of enhancement. IMPRESSION: No pulmonary embolus seen. Bilateral water density free-flowing pleural effusions appear present with proportionate posterior lung base atelectasis immediately adjacent. No pneumonia found. No cardiomegaly identified. Dictated by: Tobias Pelletier M.D. on 04/24/2020 at 13:11 Approved by: Tobias Pelletier M.D. on 04/24/2020 at 13:14
--- NOTE | 2020-04-24 13:59 | CM.DANOTE ---
Patient is a 74 year old male who was admitted on 04/23/20 for Difficulty Breathing. Pt has [facility] for insurance and his PCP is Dr. Agustin Gomez. EMR was reviewed. Per MD, pt with hx of AFIB and hypertension and new onset CHF exacerbation. Per RT, pt was able to be weaned from 2L oxygen to room air but seems to be somewhat still short of breath on room air ranging around 92%. Per RN, pt and spouse were hopeful for d/c home today but pt's bp is now back up and likely not stable for d/c yet today. SW met briefly bedside with pt and explained role and he confirms that he lives in [place] with his and is independent at baseline and spouse is his DPOA. Pt is alert and oriented and hopeful for home tonight or tomorrow if necessary. Pt does not anticipate any needs at d/c and spouse can provide transport home when discharged. Plan: SW to follow closely for respirations and bp issues towards plan of d/c home with spouse when medically stable and any further identified discharge planning needs. KHOI Proctor Discharge Planning/Care Management Advanced directive, confirm from FAMILY Start: 04/23/20 08:28 Freq: Q24H Status: Active Protocol: Document 04/23/20 08:32 NITO (Rec: 04/23/20 08:32 NITO [id number]) Advance Directive, confirm on record Time 08:32 Person contacted patient Copy received No CM Discharge Assessment Start: 04/24/20 13:56 Freq: Status: Active Protocol: Document 04/24/20 13:56 BF (Rec: 04/24/20 13:59 BF [id number]) Discharge Planning Assessment Assigned Agricultural Produce Washer KHOI Manley DPOA/Assigned Designee Name spouse [place] Contact Information [phone] Advance Directives? Yes History Provided By Patient,Significant Other, Medical Record Has Patient been admitted in last 30 No days? Prior Living Arrangements House Household Members spouse Type of transporation used prior to Drives own vehicle admit Independent with ADL's Yes Is patient alert and oriented? Yes Caregiver for Another No Barriers to Discharge No Discharge Plan Home Transportation Arrangement Spouse bedside and can provide transport at d/c. Referrals Initiated None needed Whiteboard Updated in Patient Room with Yes name and ext. # of Agricultural Produce Washer Review Status In Process Please Provide Date Initial DC 04/24/20 Assessment Was Performed Next Review Type Continued Stay Review
[2020-04-24] MEDS: METOPROLOL IR 25 MG TABLET PO (14:44)
--- NOTE | 2020-04-24 15:02 | PM.PN.1 ---
Subjective Subjective Date Patient Seen: 04/24/20 Interval history: Agustin Miller is 74-year-old male with a past medical history significant for hypertension, hyperlipidemia, persistent atrial fibrillation on warfarin, and BPH who presented to the ED with progressive worsening shortness of breath. The patient is resting in bed comfortably. He continues to endorse significant dyspnea on exertion. His lower extremity edema also has not improved significantly. He has intermittent non-productive cough. He denies shortness of breath at rest, PND, or orthopnea. He also denies headache, chest pain, abdominal pain, nausea, vomiting, fever, chills, dysuria, diarrhea or constipation. He is voiding and eliminating without difficulty. He is up ambulating without assistance. Exam Vital Signs (past 8 hours): - 04/24/20 07:30 04/24/20 07:37 04/24/20 07:38 Temperature Pulse Rate 92 H 97 H 98 H Respiratory Rate 17 21 21 Blood Pressure 179/104 H 178/100 H Pulse Oximetry 95 96 96 04/24/20 08:00 04/24/20 08:30 04/24/20 09:00 Temperature 98.6 F Pulse Rate 116 H 95 H 107 H Respiratory Rate 29 H 20 25 H Blood Pressure 178/100 H Pulse Oximetry 91 91 91 04/24/20 09:31 04/24/20 10:00 04/24/20 10:30 Temperature Pulse Rate 122 H 94 H 82 Respiratory Rate 35 H 30 H 20 Blood Pressure Pulse Oximetry 95 95 04/24/20 10:51 04/24/20 12:00 Temperature 98.9 F Pulse Rate 89 82 Respiratory Rate 26 H 22 Blood Pressure 172/94 H 182/93 H Pulse Oximetry 94 92 Oxygen Delivery Method Nasal Cannula Oxygen Flow Rate 0 Narrative Exam Narrative: General: Elderly male resting in bed comfortably and in no acute distress, well-developed, well-nourished, appropriately interactive. HEENT: Normocephalic, atraumatic. External ears without defect. Pupils equal, round, and reactive to light. Anicteric sclerae, moist conjunctivae, and no lid lag. Oropharynx free of erythema and cobble stoning with moist mucosa. Neck: Supple with full range of motion. No jugular venous distension. No lymphadenopathy or thyromegaly. Cardiovascular: Irregularly irregular without murmurs, rubs, or gallops appreciated. Pulmonary: Clear to auscultation bilaterally with occasional fine bibasilar crackle. No wheezes or rhonchi. Normal respiratory effort with no use of accessory muscles. Abdomen: Soft, bowel sounds present nontender, nondistended. No hepatosplenomegaly or masses appreciated. Extremities: No clubbing or cyanosis. Mild bilateral pitting edema to pretibial area bilaterally. Skin: Normal temperature, turgor, and texture; no rash, ulcers, or subcutaneous nodules appreciated. Neurological: Cranial nerves grossly intact. Psychiatric: Normal mood and affect. Alert and oriented to person, place, and time. Objective Labs Result Diagrams: 04/25/20 14:11 04/25/20 14:11 Labs: Laboratory Results - last 24 hr 04/23/20 04/24/20 04/24/20 19:24 04:41 04:41 WBC 6.1 RBC 3.88 L Hgb 13.8 Hct 40.9 L MCV 105.3 H MCH 35.6 H MCHC 33.9 RDW 13.9 Plt Count 141 L Neut % (Auto) 71.6 Lymph % (Auto) 8.2 L [place] % (Auto) 14.6 H Eos % (Auto) 1.6 L Baso % (Auto) 4.0 H Neut # (Auto) 4400 Lymph # (Auto) 500 L [place] # (Auto) 900 Eos # (Auto) 100 Baso # (Auto) 200 H PT 29.4 H D INR 2.6 H Sodium Potassium 3.0 L Chloride Carbon Dioxide BUN Creatinine Estimated GFR BUN/Creatinine Ratio Glucose Calcium Magnesium 04/24/20 04:41 WBC RBC Hgb Hct MCV MCH MCHC RDW Plt Count Neut % (Auto) Lymph % (Auto) [place] % (Auto) Eos % (Auto) Baso % (Auto) Neut # (Auto) Lymph # (Auto) [place] # (Auto) Eos # (Auto) Baso # (Auto) PT INR Sodium 136 L Potassium 3.2 L Chloride 97 L Carbon Dioxide 38 H BUN 10 Creatinine 0.77 Estimated GFR > 60.0 BUN/Creatinine Ratio 13.0 Glucose 108 Calcium 8.5 Magnesium 2.1 Assessment & Plan Assessment & Plan narrative: Agustin Miller is 74-year-old male with a past medical history significant for hypertension, hyperlipidemia, persistent atrial fibrillation on warfarin, and BPH who presented to the ED with progressive worsening shortness of breath. 1. Newly diagnosed HFpEF with acute exacerbation, present on admission. Active. -Patient presented with progressive dyspnea on exertion and peripheral edema. -ProBNP 2069. -CTA chest demonstrated no acute cardiopulmonary process with small bilateral pleural effusions. No PE. -Echocardiogram demonstrated normal LV size, wall thickness, motion and systolic function with EF 55-60%, severe biatrial enlargement; mild RV enlargement, aortic valve leaflets are mildly thickened and calcified with moderate associated AI otherwise no significant valvular abnormalities. Diastolic parameters could not be assessed due to atrial fibrillation. -Received furosemiide 40 mg IV x 1 in ED. Continued furosemide 40 mg IV daily and increased to twice daily today. -Continue to monitor strict I&O's and daily weights. Net -2L. -Continue low sodium and 1.5 L fluid restricted diet. Continue to elevate lower extremities often above level of the heart. 2. Acute hypertensive urgency in setting of chronic hypertension, present on admission. Hypertensive urgency resolved but resistant hypertension persistent and active. . -Initial blood pressure 215/141. Received metoprolol 5 mg IV x 1 and 0.5 inch nitro paste in ED then started on nitro gtt for better blood pressure control. Patient was restarted on home diltiazem 240 mg daily and metoprolol succinate increased from 50 mg to 75 mg twice daily, and lisinopril increased from 5 mg to 20 mg daily. Patient was slowly titrated off nitro gtt. -Continue diuresis as above. -Patient has newly diagnosed and untreated GENE which makes hypertension resistant and difficult to treat. 3. Acute severe hypokalemia, present on admission. Active. -Initial potassium level 2.4. Received potassium chloride 40 mEq IV x1 and 40 mEq PO x 2 in ED. Potassium level improving but continues to be low with ongoing diuresis. Ordered additional potassium chloride 40 mEq IV x 1 and potassium chloride 40 mEq PO twice daily. -Continue to monitor potassium level and replete as necessary. 4. Persistent atrial fibrillation with acute RVR, chronic, present on admission. RVR resolved. -Continue home diltiazem 240 mg daily and metoprolol succinate increased from 50 mg to 75 mg twice daily. -Continue home warfarin 5 mg daily at bedtime //// and 2.5 mg daily at bedtime Mo/. Initial INR subtherapeutic at 1.8 and received warfarin 7.5 mg x 1. INR now therapeutic at 2.6. Continue to monitor INR daily. 5. 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 Stable. -Patient has apneic episodes while sleeping per nursing and per patient's spouse. -Ordered CPAP per RT protocol. -Recommend expedited referral to sleep medicine per PCP. Hypertension is resistant and difficult to treat due to uncontrolled obstructive sleep apnea. 6. Hyperlipidemia, chroinic, present on admission. Stable. -Continue home lovastatin 20 mg daily at bedtime. 7. BPH, chronic, present on admission. Stable. -Continue doxazosin 1 mg daily at bedtime. Code status: Full code, surrogate decision maker designated as spouse. VTE prophylaxis: Warfarin, SCDs Disposition: Patient will likely discharge home in the next 1-2 days once adequately diuresed. Quality VTE Deep Vein Thrombosis/Pulmonary Embolism Present on Admission: No
[2020-04-24] MEDS: LOVASTATIN 20 MG TABLET PO (17:18)
[2020-04-24] MEDS: WARFARIN 5 MG TABLET PO (17:18)
[2020-04-24] MEDS: DOXAZOSIN 2 MG TABLET 1 MG PO (21:54)
[2020-04-24] MEDS: METOPROLOL ER 50 MG TABLET 75 MG PO (21:54)
[2020-04-24] MEDS: SODIUM CHLORIDE 0.9% FLUSH 10 ML IV (21:55)
[2020-04-25] VITALS (13 sets, daily range): BP systolic 146–195; BP diastolic 80–92; PULSE 81–116; RESP 17–23; TEMP 36.7–37.4; O2SAT 90–99
--- NOTE | 2020-04-25 00:31 | PC.NURSE ---
Addendum entered by Coty Christy R.N. 04/25/20 06:08: Patient BP remains elevated 195/88 - ANDREA Christianson aware. Potassium 2.6, orders received. Patient tolerated CPAP most of the night. Original Note: Patient with oxygen desaturations down to 84% on CPAP. RT at bedside to eval - placed on 5L bleed in with Sp02 increasing to 92-94%. Patient with increased WOB with activity in bed and use of urinal. HR up to 125 Afib with activity. CVR in the 80's at rest. Denies CP. BP elevated 174/83 - ANDREA Christianson made aware, awaiting further orders. Reinforced fluid restriction. Declined SCD's. Call light in reach.
[2020-04-25 05:31] LABS: Add Manual Diff / Slide Review NO; Basophils Absolute Auto 0 /uL (0-100); Basophils Percent Auto 0.4 % (0-2); Eosinophils Absolute Auto 100 /uL (0-450); Eosinophils Percent Auto 1.3 % (2-4); Hematocrit 40.1 % (41-53); Hemoglobin 13.8 g/dL (13.5-17.5); Lymphocytes Absolute Auto 700 /uL (1100-4500); Lymphocytes Percent Auto 9.7 % (25-40); Mean Corpuscular HGB Conc 34.4 % (30-36); Mean Corpuscular Hemoglobin 35.9 PG (26-34); Mean Corpuscular Volume 104.5 fL (80-100); Monocytes Absolute Auto 900 /uL (0-900); Monocytes Percent Auto 12.8 % (3-14); Neutrophils Absolute Auto 5400 /uL (1500-7000); Neutrophils Percent Auto 75.8 % (50-75); Platelet Count 148 X10^3/uL (150-400); Red Blood Cell Count 3.84 X10^6/uL (4.5-5.9); Red Cell Distribution Width 13.9 % (11.6-14.8); White Blood Cell Count 7.1 X10^3/uL (4.5-11.0)
[2020-04-25 05:32] LABS: INR 2.6 (0.9-1.3); Prothrombin Time 29.8 SECONDS (10.1-12.7)
[2020-04-25 05:37] LABS: BUN Creatinine Ratio 14.9 (6-22); Blood Urea Nitrogen 10 mg/dL (9-20); Calcium 8.4 mg/dL (8.4-10.2); Carbon Dioxide 37 mmol/L (22-32); Chloride 94 mmol/L (98-107); Estimated Glomerular Filt Rate > 60.0 mL/min (>60); Glucose 105 mg/dL (80-110); HEMOLYSIS < 15 (0-50); Magnesium 1.9 mg/dL (1.6-2.3); Sodium 135 mmol/L (137-145)
[2020-04-25 05:43] LABS: Potassium 2.6 mmol/L (3.4-5.1)
[2020-04-25] MEDS: POTASSIUM CHLORIDE 20 MEQ TAB 40 MEQ PO ×2 (06:22→09:12)
[2020-04-25] MEDS: HYDRALAZINE 20 MG/ML VIAL 10 MG IV (06:23)
[2020-04-25] MEDS: POTASSIUM CHLORIDE 40 MEQ in SODIUM CHLORIDE 0.9% 500 ML 130 ML IV ×2 (06:23→12:00)
[2020-04-25] MEDS: FUROSEMIDE 40 MG/4 ML VIAL IV (06:48)
[2020-04-25] MEDS: ASPIRIN EC 81 MG TABLET PO (09:01)
[2020-04-25] MEDS: lisinopriL 20 MG TABLET PO (09:01)
[2020-04-25] MEDS: SODIUM CHLORIDE 0.9% FLUSH 10 ML IV (09:02)
[2020-04-25] MEDS: METOPROLOL ER 50 MG TABLET 75 MG PO (09:02)
[2020-04-25] MEDS: dilTIAZem CD 240 MG CAP PO (09:02)
[2020-04-25 14:22] LABS: Add Manual Diff / Slide Review NO; Basophils Absolute Auto 0 /uL (0-100); Basophils Percent Auto 0.6 % (0-2); Eosinophils Absolute Auto 100 /uL (0-450); Eosinophils Percent Auto 1.5 % (2-4); Hematocrit 41.4 % (41-53); Hemoglobin 14.3 g/dL (13.5-17.5); Lymphocytes Absolute Auto 500 /uL (1100-4500); Lymphocytes Percent Auto 9.4 % (25-40); Mean Corpuscular HGB Conc 34.5 % (30-36); Mean Corpuscular Hemoglobin 36.1 PG (26-34); Mean Corpuscular Volume 104.6 fL (80-100); Monocytes Absolute Auto 700 /uL (0-900); Monocytes Percent Auto 12.2 % (3-14); Neutrophils Absolute Auto 4300 /uL (1500-7000); Neutrophils Percent Auto 76.3 % (50-75); Platelet Count 160 X10^3/uL (150-400); Red Blood Cell Count 3.96 X10^6/uL (4.5-5.9); Red Cell Distribution Width 13.8 % (11.6-14.8); White Blood Cell Count 5.7 X10^3/uL (4.5-11.0)
--- NOTE | 2020-04-25 14:31 | PC.NURSE ---
Addendum entered by Faviola Becker R.N. 04/25/20 15:28: K improved to 3.8 D/c orders pending Original Note: Am shift Pt recieving K rider, + PO K, and recheck labs @ 1400. Pt reports WOB improved. Pt denies SOB at present. updated of POC and at bedside.
[2020-04-25 14:36] LABS: BUN Creatinine Ratio 20.3 (6-22); Blood Urea Nitrogen 15 mg/dL (9-20); Calcium 8.4 mg/dL (8.4-10.2); Carbon Dioxide 38 mmol/L (22-32); Chloride 98 mmol/L (98-107); Estimated Glomerular Filt Rate > 60.0 mL/min (>60); Glucose 144 mg/dL (80-110); HEMOLYSIS < 15 (0-50); Potassium 3.8 mmol/L (3.4-5.1); Sodium 138 mmol/L (137-145)
--- NOTE | 2020-04-25 15:38 | P.DS_ITS ---
History of Present Illness History of Present Illness Date Patient Seen: 04/23/20 Chief complaint: difficulty breathing, some coughing Narrative: Written by Yanet MENDEZ: Agustin Miller is a 74-year-old male history of persistent atrial fibrillation anticoagulated on warfarin and hypertension presented to the emergency department with an approximate 24 hour duration of worsening dyspnea on exertion. He states that it woke him up from sleep at approximately 0100 hours in the morning. He denies any chest pain, abdominal pain, frequent urination or dysuria except for after they gave him the Lasix he states that he has been peeing a lot, denies diarrhea are or constipation, denies peripheral extremity neuropathy. He does agree that he has had some lower extremity swelling. States he has has had atrial fibrillation since his early 40s, he states he has had a CT of his heart as well as an echocardiogram but this was many years ago and has never been diagnosed with heart failure. No underlying lung issues. States that his symptoms yesterday were really only when he was walking around last night it woke him up from sleep. States that he is taking his medications as directed. Patient sees a primary care provider with the [facility]. In the emergency department his blood pressure was 215/141 and he was administered Lopressor 5 mg IV and they applied a nitro paste on him. He was eventually placed on a nitro drip to help control his blood pressure. His potassium was 2.4 and he was given oral potassium 40 mEq as well as IV potassium 40 mEq. He is currently afebrile and at this time his blood pressure is 155/71, heart rate 104, respiratory rate 21, oxygen saturation of 91% on room air, he weighs 90.7 kg with a BMI of 25.7. WBC was 8.3, RBC 4.22, hemoglobin 15.2, hematocrit 44.1, platelet count is 169, sign INR is 1.8, sodium 134, potassium at time of admission was 2.4, chloride 93,, bicarb 38, creatinine 0.76, BUN 9, GFR is greater than 60, glucose 121, magnesium is 2.1, calcium 8.9, total bilirubin is 1.8, rest of his liver enzymes are within normal limits, troponin was 0.015, proBNP 20 70, lipid panel is pending, TSH is pending, and COVID-19 PCR is negative. Discharge Providers Provider Date of admission: 04/24/20 14:56 Discharge Date: 04/25/20 Consults: 04/23/20 07:12 Consult to Cardiology Routine Comment: Consulting Provider: Tha Mohamud Reason for consultation: New onset CHF Has provider been notified: Yes 04/25/20 00:30 Consult to Respiratory Therapy Evaluate & Treat Comment: Physician Instructions: Evaluate and treat Discharge provider: Tiffany Donato DO Summary Hospital Course Discharge Diagnosis: 1. Newly diagnosed HFpEF with acute exacerbation, present on admission. Acute exacerbation resolved. 2. Acute hypertensive urgency in setting of chronic hypertension, present on admission. Hypertensive urgency resolved but resistant hypertension persitent but improved. 3. Acute severe hypokalemia, present on admission. Active. 4. Persistent atrial fibrillation with acute RVR, chronic, present on admission. RVR resolved. 5. 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 Stable. 6. Hyperlipidemia, chronic, present on admission. Stable. 7. BPH, chronic, present on admission. Stable. Hospital Course: Agustin Miller is 74-year-old male with a past medical history significant for hypertension, hyperlipidemia, persistent atrial fibrillation on warfarin, and BPH who presented to the ED with progressive worsening shortness of breath. 1. Newly diagnosed HFpEF with acute exacerbation, present on admission. Acute exacerbation resolved. -Patient presented with progressive dyspnea on exertion and peripheral edema. -ProBNP 2069. -CTA chest demonstrated no acute cardiopulmonary process with small bilateral pleural effusions. No PE. -Echocardiogram demonstrated normal LV size, wall thickness, motion and systolic function with EF 55-60%, severe biatrial enlargement; mild RV enlargement, aortic valve leaflets are mildly thickened and calcified with moderate associated AI otherwise no significant valvular abnormalities. Diastolic parameters could not be assessed due to atrial fibrillation. -Received furosemiide 40 mg IV x 1 in ED. Continued furosemide 40 mg IV twice daily. Discharged on furosemide 40 mg daily with potassium chloride 20 mEq twice daily. -Continued to monitor strict I&O's and daily weights. Net -3L. -Continued low sodium and 1.5 L fluid restricted diet. Continued to elevate lower extremities often above level of the heart. 2. Acute hypertensive urgency in setting of chronic hypertension, present on admission. Hypertensive urgency resolved but resistant hypertension persitent but improved. -Initial blood pressure 215/141. Received metoprolol 5 mg IV x 1 and 0.5 inch nitro paste in ED then started on nitro gtt for better blood pressure control. Patient was restarted on home diltiazem 240 mg daily and metoprolol succinate increased from 50 mg to 75 mg twice daily, and lisinopril increased from 5 mg to 40 mg daily. Patient titrated off nitro gtt. -Continued diuresis as above. -Patient has newly diagnosed and untreated GENE which makes hypertension resistant and difficult to treat. 3. Acute severe hypokalemia, present on admission. Resolved. -Initial potassium level 2.4. Received potassium chloride 40 mEq IV x1 and 40 mEq PO x 2 in ED. Potassium level improved but continued to be low with ongoing diuresis. Received numerous doses of potassium chloride IV and PO. Potassium level now 3.8. Discharged on potassium chloride 20 mEq twice daily. -Continued to monitor potassium level and replete as necessary. 4. Persistent atrial fibrillation with acute RVR, chronic, present on admission. RVR resolved. -Continued home diltiazem 240 mg daily and metoprolol succinate increased from 50 mg to 75 mg twice daily. -Continued home warfarin 5 mg daily at bedtime //// and 2.5 mg daily at bedtime /. Initial INR subtherapeutic at 1.8 and received warfarin 7.5 mg x 1. INR therapeutic at 2.6. Continued to monitor INR daily. 5. 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 Stable. -Patient has apneic episodes while sleeping per nursing and per patient's spouse. -Ordered CPAP per RT protocol and patient tolerated overnight. -Recommend expedited referral to sleep medicine per PCP. Hypertension is resistant and difficult to treat due to uncontrolled obstructive sleep apnea. 6. Hyperlipidemia, chronic, present on admission. Stable. -Continued home lovastatin 20 mg daily at bedtime. 7. BPH, chronic, present on admission. Stable. -Continued home doxazosin 1 mg daily at bedtime. Exam Vital Signs (past 8 hours): - 04/25/20 08:00 04/25/20 10:00 04/25/20 12:00 Temperature 99.3 F 98.9 F Pulse Rate 116 H 81 Respiratory Rate 21 20 Blood Pressure 165/92 H 147/80 H Pulse Oximetry 97 97 96 Oxygen Delivery Method Nasal Cannula Oxygen Flow Rate 6 Narrative Exam Narrative: General: Elderly male resting in bed comfortably and in no acute distress, well-developed, well-nourished, appropriately interactive. HEENT: Normocephalic, atraumatic. External ears without defect. Pupils equal, round, and reactive to light. Anicteric sclerae, moist conjunctivae, and no lid lag. Oropharynx free of erythema and cobble stoning with moist mucosa. Neck: Supple with full range of motion. No jugular venous distension. No lymphadenopathy or thyromegaly. Cardiovascular: Irregularly irregular without murmurs, rubs, or gallops appreci ated. Pulmonary: Clear to auscultation bilaterally no crackles, wheezes or rhonchi. Normal respiratory effort with no use of accessory muscles. Abdomen: Soft, bowel sounds present nontender, nondistended. No hepatosplenomegaly or masses appreciated. Extremities: No clubbing or cyanosis. Trace bilateral pitting edema to ankles significantly improved. Skin: Normal temperature, turgor, and texture; no rash, ulcers, or subcutaneous nodules appreciated. Neurological: Cranial nerves grossly intact. Psychiatric: Normal mood and affect. Alert and oriented to person, place, and time. Objective Labs Result Diagrams: 04/25/20 14:11 04/25/20 14:11 Labs: Laboratory Results - last 24 hr 04/25/20 04/25/20 04/25/20 04:38 04:38 04:38 WBC 7.1 RBC 3.84 L Hgb 13.8 Hct 40.1 L MCV 104.5 H MCH 35.9 H MCHC 34.4 RDW 13.9 Plt Count 148 L Neut % (Auto) 75.8 H Lymph % (Auto) 9.7 L [place] % (Auto) 12.8 Eos % (Auto) 1.3 L Baso % (Auto) 0.4 Neut # (Auto) 5400 Lymph # (Auto) 700 L [place] # (Auto) 900 Eos # (Auto) 100 Baso # (Auto) 0 PT 29.8 H INR 2.6 H Sodium 135 L Potassium 2.6 L* Chloride 94 L Carbon Dioxide 37 H BUN 10 Creatinine 0.67 Estimated GFR > 60.0 BUN/Creatinine Ratio 14.9 Glucose 105 Calcium 8.4 Magnesium 1.9 04/25/20 04/25/20 14:11 14:11 WBC 5.7 RBC 3.96 L Hgb 14.3 Hct 41.4 MCV 104.6 H MCH 36.1 H MCHC 34.5 RDW 13.8 Plt Count 160 Neut % (Auto) 76.3 H Lymph % (Auto) 9.4 L [place] % (Auto) 12.2 Eos % (Auto) 1.5 L Baso % (Auto) 0.6 Neut # (Auto) 4300 Lymph # (Auto) 500 L [place] # (Auto) 700 Eos # (Auto) 100 Baso # (Auto) 0 PT INR Sodium 138 Potassium 3.8 D Chloride 98 Carbon Dioxide 38 H BUN 15 Creatinine 0.74 Estimated GFR > 60.0 BUN/Creatinine Ratio 20.3 Glucose 144 H Calcium 8.4 Magnesium Discharge Plan Discharge Plan Patient Disposition: Home Provider Discharge Comment: You are being discharged home. You have diastolic congestive heart failure. You have been started on a diuretic called furosemide (Lasix) 40 mg daily and potassium chloride 20 mEq daily. Please continue to consume a diet low in salt and fluids no more than 1.5 L a day. Please weigh yourself daily and keep track of your weight in a log and take this with you to all your doctor's appointments. Your blood pressure medications have been optimized and your lisinopril has been increased from 5 mg daily to 40 mg daily. Please continue rate control medications diltiazem 240 mg daily and metoprolol succinate increased from 50 mg to 75 mg twice daily. Continue your normal warfarin dosing. Your INR is 2.6. Please follow-up with your primary care physician, Dr. Barrera, regarding your hospitalization, warfarin/INR checks, and referral to Sleep Medicine to assess for obstructive sleep apnea and treat with CPAP if present. Discharge orders & Medications Prescriptions: New aspirin 81 mg Tablet,Delayed Release (Dr/Ec) 81 mg PO DAILY Qty: 30 RF: 0 potassium chloride [Klor-Con M20] 20 mEq Tablet,Er Particles/Crystals 20 meq PO BIDWM Qty: 30 RF: 0 lisinopril 40 mg tablet 40 mg PO DAILY Qty: 30 RF: 0 furosemide 40 mg tablet 40 mg PO DAILY Qty: 30 RF: 0 Continued diltiazem HCl [DILT-XR] 240 mg capsule,ext.rel 24h degradable 240 mg PO DAILY RF: 0 doxazosin 1 mg tablet 1 mg PO BEDTIME RF: 0 warfarin 5 mg tablet 5 mg PO BEDTIME RF: 0 lovastatin 20 mg tablet 20 mg PO BEDTIME RF: 0 Changed metoprolol succinate 50 mg tablet extended release 24 hr 75 mg PO BID Qty: 90 RF: 0 Discontinued lisinopril 5 mg tablet 5 mg PO DAILY RF: 0 hydrochlorothiazide 25 mg tablet 25 mg PO DAILY RF: 0 Follow up/Referrals: Miguel Barrera MD [Non-Staff] - 1 Week Diet/Activity/Treatments Diet: Low-fat, Low-sodium and Low-cholesterol Diet comment: Low sodium < 2g, 1.5 fluid restriction Activity: Activity as tolerated Visit Report/Discharge Packet Instructions: The Mediterranean Diet and Good Health, The DASH Diet, Essential Hypertension, DI for Heart Failure, DI for Obstructive Sleep Apnea -- Adult, Fluid Restricted Diet Visit Report Forms: Patient Portal/API, Stroke Signs & Symptoms Discharges patient from system. Discharge Date/Time: 04/25/20 17:20 Quality VTE Deep Vein Thrombosis/Pulmonary Embolism Present on Admission: No
== END 2020-04-25 17:20 | disposition home or self-care (01) | DRG 291 ==
LOC: ED 05:25 → AC 06:53 → ICU 09:03 → AC 11:07 → ICU 11:09
PROVIDERS: Internal Medicine; Admitting Provider Nurse Practitioner Family; Emergency Provider Emergency Medicine; Family Provider Internal Medicine; Referring Provider Emergency Medicine; Visit Provider Nurse Practitioner Family
DX: I11.0 Hypertensive heart disease with heart failure (principal); I50.31 Acute diastolic (congestive) heart failure; I48.19 Other persistent atrial fibrillation; I16.0 Hypertensive urgency; G47.33 Obstructive sleep apnea (adult) (pediatric); E78.5 Hyperlipidemia, unspecified; N40.0 Benign prostatic hyperplasia without lower urinary tract symptoms; E87.6 Hypokalemia; Z79.01 Long term (current) use of anticoagulants; Z87.891 Personal history of nicotine dependence; Z11.59 Encounter for screening for other viral diseases
CPT/HCPCS: 36415; 71045; 71275; 80048; 80053; 80061; 82550; 82553; 82962; 83690; 83735; 83880; 84132; 84443; 84484; 85025; 85379; 85610; 85730; 87635; 87797; 93005; 93306; 94660; 94762; 96365; 96375; 99285; 99291; 99292; G0378; J0360; J1940; J3480

== ENCOUNTER → 2020-06-19 10:10 | Outpatient (CLI) | payer OTHER, SELFPAY ==
[2020-04-23 08:13] VITALS: BMI 27.4
[2020-06-19 11:04] LABS: COVID19 -Nasal RAPID Negative (Negative)
== END ==
PROVIDERS: Family Provider Internal Medicine; Visit Provider Nurse Practitioner
DX: Z20.828 Contact with and (suspected) exposure to other viral communicable diseases (principal)
CPT/HCPCS: 87635

== ENCOUNTER → 2020-06-20 09:55 | Outpatient (CLI) | payer OTHER, SELFPAY ==
[2020-04-23 08:13] VITALS: BMI 27.4
--- NOTE | 2020-06-20 19:24 | DI.NM.S_ITS ---
DATE OF SERVICE: 06/20/2020 PROCEDURE: Exercise perfusion study. INDICATION: Dyspnea, chronic AFib, diastolic heart failure. Stress test was scheduled to rule out underlying coronary artery disease. RADIOPHARMACEUTICAL: 25.2 millicurie technetium-99m Myoview IV was injected at stress and 12.2 millicurie technetium-99m Myoview IV was injected at rest. CARDIAC STRESS: The patient underwent exercise perfusion study under the supervision of an attending staff. The patient walked on Edgardo protocol for 4 minutes 53 seconds and achieved 111 percent of target heart rate. [place] shortness of breath. Baseline blood pressure 106/60. Heart rate was ranging 96 to 113 beats per minute. The patient was in AFib. Normal blood pressure response. Achieved 7 METs of workload. Functional aerobic impairment positive 13 percent. Baseline EKG revealed AFib with intermittent fast ventricular rate and PVCs. During, the patient has baseline nonspecific ST-T changes. During stress, no convincing new ischemic changes. The patient continues to have intermittent PVCs and some ventricular couplets without any ventricular tachycardia. RAW DATA: There is increased subdiaphragmatic activity. Gated study shows stress LV ejection fraction of 75 and resting LV ejection fraction 73 percent without any obvious wall motion abnormalities. Resting end-diastolic volume 85 mL. TID ratio 0.84, which is within normal limits. Lung/heart ratio 0.31, which is within normal limits. MYOCARDIAL PERFUSION: Stress supine, resting supine and stress prone images were compared to each other. The stress and resting supine images reveal small to moderate size mildly decreased perfusion of inferior wall, which got significantly improved during prone images with some apical thinning. No convincing ischemia or infarction pattern seen. CONCLUSION: I will call this study likely a normal myocardial perfusion study with evidence of diaphragmatic tissue attenuation artifact, which got improved during prone images, as well as some apical thinning. No convincing ischemia or infarction seen. The patient has baseline atrial fibrillation with intermittent fast ventricular heart rate up to 113 at rest. The maximum heart rate during exercise was 160 beats per minute. Some ventricular couplets during exercise without any ventricular tachycardia. As far as perfusion scan is concerned, this is a low-risk myocardial perfusion scan. Agustin Miller Jr - Nathan doc#: [id number]/job#: [id number] dd: 06/20/2020 17:41:00 dt: 06/20/2020 19:09:00 DICTATING MD/COPIES TO: David Campuzano MD COPIES MNE: JEMMA;
== END ==
PROVIDERS: Family Provider Internal Medicine; Referring Provider Specialist; Visit Provider Specialist
DX: R06.00 Dyspnea, unspecified (principal); I50.32 Chronic diastolic (congestive) heart failure; I48.20 Chronic atrial fibrillation, unspecified
CPT/HCPCS: 78452; 93017; A9502

== ENCOUNTER → 2020-07-26 08:06 | Outpatient (CLI) | payer OTHER, SELFPAY ==
[2020-04-23 08:13] VITALS: BMI 27.4
[2020-07-26 08:54] LABS: Alanine Aminotransferase 20 IU/L (<50); Albumin 4.1 g/dL (3.5-5.0); Albumin Globulin Ratio 1.6 (1.0-2.8); Alkaline Phosphatase 66 U/L (38-126); Aspartate Aminotransferase 27 IU/L (17-59); Bilirubin Total 1.2 mg/dL (0.2-1.3); Blood Urea Nitrogen 16 mg/dL (9-20); Calcium 9.6 mg/dL (8.4-10.2); Carbon Dioxide 32 mmol/L (22-32); Chloride 103 mmol/L (98-107); Estimated Glomerular Filt Rate > 60.0 mL/min (>60); Globulin 2.5 g/dL (1.7-4.1); Glucose 116 mg/dL (80-110); HEMOLYSIS < 15 (0-50); Magnesium 2.1 mg/dL (1.6-2.3); Potassium 4.1 mmol/L (3.4-5.1); Sodium 139 mmol/L (137-145); Total Protein 6.6 g/dL (6.3-8.2)
[2020-08-02 13:16] LABS: LDL Particle 672
[2020-08-02 13:17] LABS: HDL-Cholesterol 59; LDL-Cholsterol 55; Triglycerides 73
[2020-08-02 13:18] LABS: Cholesterol, Total 129
[2020-08-02 13:19] LABS: HDL-Particle (Total) 37.1; Small LDL- Particle 366
[2020-08-02 13:20] LABS: LDL Size 20.5
[2020-08-02 13:24] LABS: LP-IR Score 39
== END ==
PROVIDERS: Family Provider Internal Medicine; Referring Provider Specialist; Visit Provider Specialist
DX: E78.2 Mixed hyperlipidemia (principal); I48.20 Chronic atrial fibrillation, unspecified; I50.30 Unspecified diastolic (congestive) heart failure
CPT/HCPCS: 36415; 80053; 80061; 83704; 83735

== ENCOUNTER → 2020-09-05 09:04 | Outpatient (CLI) | payer OTHER, SELFPAY ==
[2020-04-23 08:13] VITALS: BMI 27.4
--- NOTE | 2020-09-05 | DI.MRI.S_ITS ---
PROCEDURE: MR ANGIO ABDOMEN WO/W CON INDICATIONS: Atherosclerosis of renal artery TECHNIQUE: Precontrast axial and coronal TruFISP through the abdomen. Dynamic coronal MRA using Care Bolus timing during the administration of contrast. Post-contrast axial VIBE through the kidneys. 3-dimensional maximum intensity projection (MIP) reformats constructed. COMPARISON:Within the [facility], CT, CT ANGIO CHEST, 04/24/2020, 12:37. t FINDINGS: Image quality: Excellent. Renal arteries: Single bilateral renal arteries are present. Stent artifact obscures the origin of the left renal artery. Right renal artery demonstrates a mild origin stenosis. Abdominal aorta: Aorta is normal in caliber, and is patent. Mesenteric arteries: Celiac trunk, superior and inferior mesenteric arteries are widely patent. Extravascular soft tissues: Visualized solid organs appear normal in size on limited pre-contrast images. No retroperitoneal or mesenteric adenopathy by size criteria. Bowel loops are normal in caliber. No free fluid. No ventral hernias. Bones: Marrow demonstrates normal overall signal. IMPRESSION: 1. Stent artifact obscuring left renal artery origin. 2. Mild right renal artery origin stenosis. Dictated by: Bre Raines M.D. on 09/05/2020 at 9:58 Approved by: Bre Raines M.D. on 09/05/2020 at 10:02
== END ==
PROVIDERS: Family Provider Internal Medicine; PCP Internal Medicine; Referring Provider Internal Medicine; Visit Provider Internal Medicine
DX: I70.1 Atherosclerosis of renal artery (principal)
CPT/HCPCS: C8902

== ENCOUNTER → 2020-10-18 11:03 | Outpatient (CLI) | payer OTHER, SELFPAY ==
[2020-04-23 08:13] VITALS: BMI 27.4
[2020-10-18 12:26] LABS: Alanine Aminotransferase 18 IU/L (<50); Albumin 4.4 g/dL (3.5-5.0); Albumin Globulin Ratio 1.5 (1.0-2.8); Alkaline Phosphatase 75 U/L (38-126); Aspartate Aminotransferase 30 IU/L (17-59); BUN Creatinine Ratio 17.2 (6-22); Bilirubin Total 1.1 mg/dL (0.2-1.3); Blood Urea Nitrogen 16 mg/dL (9-20); Calcium 9.8 mg/dL (8.4-10.2); Carbon Dioxide 29 mmol/L (22-32); Chloride 103 mmol/L (98-107); Estimated Glomerular Filt Rate > 60.0 mL/min (>60); Globulin 2.9 g/dL (1.7-4.1); Glucose 112 mg/dL (80-110); HEMOLYSIS < 15 (0-50); Sodium 140 mmol/L (137-145); Total Protein 7.3 g/dL (6.3-8.2)
[2020-10-18 12:27] LABS: Potassium 4.4 mmol/L (3.4-5.1)
== END ==
PROVIDERS: Family Provider Internal Medicine; PCP Internal Medicine; Referring Provider Specialist; Visit Provider Specialist
DX: I10 Essential (primary) hypertension (principal); I48.20 Chronic atrial fibrillation, unspecified
CPT/HCPCS: 36415; 80053; 83735

== ENCOUNTER → 2020-10-23 14:37 | Outpatient (CLI) | payer OTHER, SELFPAY ==
[2020-04-23 08:13] VITALS: BMI 27.4
--- NOTE | 2020-10-23 14:39 | DI.ECHO.S_ITS ---
[place] [facility]---------+ [facility] +---------+ : : [address] : : : : [id number] : : : : Phone: [phone]+ Echocardiogram Report + + :Name: LEONARD SANDRA JR Study Date: 10/23/2020 Height: 74 in : :[facility] ReadingLocation: Weight: 186 lb : : Gender: Male BSA: 2.1 m2 : :: 1945 Age: 75 yrs BP: 143/92 mmHg: :Reason For Study: PULMONARY HYPERTENSION : :Ordering Physician: ANNAMARIE, : :NIKOS Performed By: Emani Ervin : :Referring: NIKOS DE LUNA : + + Interpretation Summary Left ventricular systolic function remains normal with an estimated ejection fraction of 60 to 65% without any focal wall motion abnormality and appears unchanged from the previous exam. Left ventricular size is normal at 65 mL. Diastolic function is challenging to assess because of atrial fibrillation but there is no compelling evidence for increased filling pressures. The right ventricle appears normal in size and systolic function and appears slightly smaller compared to the previous exam. Right ventricular systolic pressure is estimated at 40 mmHg with a CVP of 3 mmHg, and is likely lower compared to the previous study when it was estimated at 53 mmHg. There is severe biatrial enlargement but both measure slightly smaller compared to the previous exam. There is mild to moderate mitral regurgitation that is slightly more prominent compared to the previous study and mild tricuspid regurgitation that is slightly less prominent. There continues to be mild aortic valve sclerosis with mild aortic insufficiency that is unchanged from the previous study. The ascending aorta and aortic arch remain mildly enlarged but grossly unchanged from the previous exam. The patient was in atrial fibrillation at 73 to 94 bpm which is somewhat slower compared to the previous study. Procedure: A two-dimensional transthoracic echocardiogram with color flow and Doppler was performed. The study quality was technically adequate. Comparison is made with the echocardiogram of 04/23/2020. The patient was in atrial fibrillation with heart rates between 73-94 bpm during the exam. This is slightly slower compared to the previous study. Left Ventricle: The left ventricle is normal in size and wall thickness. The estimated left ventricular end diastolic volume is 65 ml. The ejection fraction is estimated to be 60-65%. This is unchanged compared to the previous study. Diastolic function could not be accurately assessed due to atrial fibrillation. Right Ventricle: The right ventricle is normal in size and function. This is slightly smaller compared to the previous study. Atria: Both atria are severely dilated. Both atria have mildly decreased in size since the prior echo exam. There is no Doppler evidence for an interatrial shunt. Mitral Valve: There is a flat closure plane of the the mitral valve leaflets. There is mild to moderate mitral regurgitation. This is slightly more prominent compared to the previous study. Aortic Valve: The aortic valve is trileaflet. The aortic valve is slightly calcified. The aortic valve opens well. There is no aortic valve stenosis. There is mild aortic regurgitation. This is unchanged compared to the previous study. Tricuspid Valve: The tricuspid valve is normal in structure and function. There is mild tricuspid regurgitation. This is slightly less prominent compared to the previous study. The right ventricular systolic pressure is estimated to be at least 40 mmHg based on an estimated right atrial pressure of 3 mm Hg. Compared to the prior echo exam, there has been a decrease in the severity of pulmonary hypertension. Pulmonic Valve: The pulmonic valve is not well visualized. There is no pulmonic valvular regurgitation. Great Vessels: The aortic root is normal size. The ascending aorta is mildly enlarged. The aortic arch is mildly enlarged. This is grossly unchanged compared to the previous study. The IVC is of normal diameter and collapses greater than 50% with a sniff. This suggests a low right atrial pressure of 3 mm Hg. Pericardium/ Pleura There is no pericardial effusion. There is no pleural effusion. MMode/2D Measurements & Calculations LVIDd: 4.9 cm LVOT diam: 2.1 cm LVIDs: 3.5 cm Ao root diam: 3.5 cm FS: 29.2 % asc Aorta Diam: 3.5 cm EPSS: 0.68 cm Ao Arch Diam (Prox Trans): 3.3 cm IVSd: 0.98 cm LVPWd: 1.3 cm LV hudson. diameter/BSA (cm/m^2): 2.3 LV sys. diameter/BSA (cm/m^2): 1.6 LA A2 area: 24.8 cm2 RA long axis: 6.2 cm LA A4 area: 35.6 cm2 RA area: 28.1 cm2 LA length (vol): 6.8 cm RA vol: 107.7 ml LA vol: 109.6 ml RA : 51.1 ml/m2 LA vol index: 52.0 ml/m2 IVC diam: 1.6 cm RVD1 (basal): 3.1 cm TAPSE: 2.1 cm Doppler Measurements & Calculations Ao V2 max: 95.0 cm/sec LVOT Max Korey: 72.7 cm/sec Ao V2 mean: 63.8 cm/sec LV V1 max P.1 mmHg Ao max P.6 mmHg LV V1 VTI: 13.2 cm Ao mean P.9 mmHg LIZABETH(I,D): 2.7 cm2 Ao V2 VTI: 16.7 cm LIZABETH(V,D): 2.6 cm2 sev ratio: 0.79 LIZABETH indexed to BSA (cm^2/m^2): 1.3 MV E max korey: 96.1 cm/sec TR max korey: 302.0 cm/sec MV A max korey: 9.9 cm/sec TR max P.5 mmHg MV E/A: 9.8 PA V2 max: 84.6 cm/sec Med Peak E' Korey: 9.6 cm/sec PA V2 mean: 62.4 cm/sec E/E' med: 10.0 PA mean P.7 mmHg Lat Peak E' Korey: 9.6 cm/sec PA pr(Accel): 46.5 mmHg E/E' lat: 10.0 E/e' average: 10.0 MV P1/2t: 39.8 msec MV P1/2t max korey: 98.5 cm/sec SV(LVOT): 44.9 ml MVA(P1/2t): 5.5 cm2 Reading Physician:07:25 AM
== END ==
PROVIDERS: Family Provider Internal Medicine; PCP Internal Medicine; Referring Provider Specialist; Visit Provider Specialist
DX: I08.3 Combined rheumatic disorders of mitral, aortic and tricuspid valves (principal); I77.89 Other specified disorders of arteries and arterioles; I27.20 Pulmonary hypertension, unspecified
CPT/HCPCS: 93306

== ENCOUNTER → 2020-10-29 16:58 | Outpatient (CLI) | payer OTHER, SELFPAY ==
[2020-04-23 08:13] VITALS: BMI 27.4
--- NOTE | 2020-10-29 | DI.MRI.S_ITS ---
PROCEDURE: MR SHOULDER LT WO CON INDICATIONS: impingement syndrome of left shoulder TECHNIQUE: Noncontrast oblique coronal T2 fast spin echo with fat saturation, oblique sagittal T1 spin echo and T2 fast spin echo with fat saturation, axial T1 spin echo and T2 fast spin echo with fat saturation through the shoulder. COMPARISON: None. FINDINGS: Image quality: Excellent. Rotator cuff: There is full-thickness tearing of the supraspinatus tendon and nearly the complete infraspinatus tendon with proximal tendon retraction measuring up to 4.3 cm. There is moderate atrophy of the infraspinatus muscle with grade 2 fatty infiltration and mild atrophy of the supraspinatus muscle with grade 2 fatty infiltration. Superimposed edema within the supraspinatus and infraspinatus muscles is compatible with low-grade muscle strains. The teres minor tendon is intact. There is moderate subscapularis tendinosis. Bones and bursae: No acute trabecular bone injury. The humeral head is high riding and abuts the undersurface of the acromion with mild associated degenerative changes including lateral acromion edema. Mild partial-thickness cartilage thinning is seen in the superomedial humeral head in there are small marginal osteophytes inferiorly. Moderate acromioclavicular joint degenerative osteoarthrosis is seen. A small glenohumeral effusion communicates with the subacromial/subdeltoid bursa. Capsule and soft tissues: Diminutive appearance of the labrum is likely secondary to mild diffuse degeneration. No displaced labral tear is seen. There is complete tearing and distal retraction of the biceps long head tendon. There is partial effacement of the normal fat signal in the rotator interval. The glenohumeral ligaments are normal in thickness. IMPRESSION: 1. Complete tearing of the supraspinatus tendon and near complete tearing of the infraspinatus tendon with proximal tendon retraction measuring up to 4.3 cm. Moderate atrophy and grade 2 fatty infiltration of the infraspinatus muscle and mild atrophy and grade 2 fatty infiltration of the supraspinatus muscle with superimposed low-grade muscle strains. The humeral head is high riding and abuts the undersurface of the acromion with mild degenerative changes. 2. Moderate subscapularis tendinosis. 3. Complete tearing and distal retraction of the proximal biceps long head tendon. 4. Mild diffuse labral degeneration. 5. Moderate acromioclavicular joint osteoarthrosis. 6. Small glenohumeral effusion communicates with the subacromial/subdeltoid bursa. Dictated by: Ti Jarquin M.D. on 10/30/2020 at 9:34 Approved by: Ti Jarquin M.D. on 10/30/2020 at 9:41
== END ==
PROVIDERS: Family Provider Internal Medicine; PCP Internal Medicine; Referring Provider Internal Medicine; Visit Provider Internal Medicine
DX: M75.42 Impingement syndrome of left shoulder (principal); M75.122 Complete rotator cuff tear or rupture of left shoulder, not specified as traumatic; S46.112A Strain of muscle, fascia and tendon of long head of biceps, left arm, initial encounter; M19.012 Primary osteoarthritis, left shoulder
CPT/HCPCS: 73221

== ENCOUNTER → 2020-11-11 08:41 | Outpatient (CLI) | payer OTHER, SELFPAY ==
[2020-04-23 08:13] VITALS: BMI 27.4
[2020-11-11 09:14] LABS: COVID19 -Nasal RAPID Negative (Negative)
== END ==
PROVIDERS: Family Provider Internal Medicine; PCP Internal Medicine; Visit Provider Student in an Organized Health Care Education/Training Program
DX: Z01.812 Encounter for preprocedural laboratory examination (principal); Z20.822 Contact with and (suspected) exposure to COVID-19
CPT/HCPCS: 87635

== ENCOUNTER 2020-11-13 08:20 | Day surgery (SDC) | payer OTHER, SELFPAY ==
[2020-04-23 08:13] VITALS: BMI 27.4
--- NOTE | 2020-11-12 13:14 | PM.PREOP ---
Pre-operative Note COVID-19 COVID-19 status: Negative Interval Note History & Physical reviewed/Exam performed by Physician: Yes Changes to H&P: No H&P completed within 30 days and has changed as indicated here:: INR 2.2 this morning after holding warfarin.Will not place Malygin ring to lessen bleeding risk.
--- NOTE | 2020-11-13 07:11 | PM.OP.1 ---
Operative Date/Time/Diagnoses Date of procedure: 11/13/20 Time of procedure: 09:45 Procedure & Clinicians Procedure: Preoperative diagnoses: 1. Left significant nuclear sclerotic and cortical cataract. 2. Use of doxazosin which may increase risk of floppy iris syndrome. 3. Atrial fibrillation 4. Congestive heart failure with use of anticoagulation with warfarin Postoperative diagnoses: 1. Cataract removed by phacoemulsification with placement of posterior chamber intraocular lens. Procedure: Phacoemulsification with posterior chamber intraocular lens implant Surgeon: Clotilde Joel MD Complications: None Specimen: None Implant: DIBOO+15.o Blood loss: None Anesthesia: Retrobulbar with monitored standby Description of procedure: Patient presents with a complaint of decreased vision for driving and reading due to cataract which is affecting activities of daily living. The patient wants surgery to improve vision. He is retired 3rd grade teacher. He understands the extra risk of surgery during the COVID 19 epidemic and wishes to proceed. He has chest COVID virus negative within 72 hours prior to the procedure. He does take doxazosin for hypertension and prostate and he may have floppy iris syndrome during the surgery. He dilates well and his INR is slightly elevated at 2.2 there for a a Maluygin ring will not be used to lessen the risk of intraoperative bleeding. He is highly nearsighted and desires a myopic target of -250. The patient was taken to the operating room and given IV sedation. A retrobulbar block consisting of 6 cc of 2% xylocaine without epinephrine mixed half and half with 0.5% Marcaine with 1 cc of hyaluronidase added is placed between the medial and lateral 1/3 of the inferior orbital rim. The eye is manually massaged for 30 sec, prepped using Betadine solution, and draped in the usual sterile fashion. Temporal approach was made, a 1 mm side-port incision was made 90? from the proposed clear corneal incision position. Phenylephrine 1.5% mixed with 1% xylocaine 0.2 cc was placed into the anterior chamber. Viscoat followed by Terri was then placed. A 2.6 mm clear incision with a 2.6 mm blade was placed. A 360 degree capsulorrhexis style capsulotomy was then performed with a cystitome needle on a Healon. Hydrodelineation and hydrodissection were performed. The phacoemulsification unit is introduced, and sculpting notice used to groove the central lens. It is then removed in chopping mode. Epi nucleus is removed with epinuclear mode and irrigation aspiration was used to remove the peripheral cortex. The posterior capsule is polished. The intraocular lens is selected, inspected, power confirmed, and placed in the posterior chamber. The wound was stromally hydrated and tested for leaks, there was none and it was left sutureless. The iris did not flop. Vigamox 0.1 cc was placed into the anterior chamber. Kenalog 0.2 cc was placed in the superior subconjunctival space. A drop of antibiotic and was placed and the eye was patched and shielded. The patient was stable and returned to the recovery room in excellent condition. He will monitor his INR and adjust his warfarin according. He can restart his doxazosin today. Dictated by: Clotilde Joel MD Copy to: [facility] Same procedure as scheduled: Yes
[2020-11-13] MEDS: PROPARACAINE 0.5% OPHTH SOL 2 DROPS EYE-OP (08:54)
[2020-11-13 08:56] VITALS: BP 183/93; PULSE 106; RESP 13; TEMP 36.6; O2SAT 98
[2020-11-13] MEDS: CATARACT EYE COMPOUND (10 DROPS/SYRINGE) 3 DROPS EYE-OP (09:13)
[2020-11-13] MEDS: LIDOCAINE 2% 4 ML, BUPIVACAINE 0.5% (PF) 4 ML, HYALURONIDASE 150 UNIT INJ (09:59)
[2020-11-13] MEDS: CHONDROIDTIN/SOD HYALURONATE 1.05 ML SYRINGE INTRAOCULA (10:06)
[2020-11-13] MEDS: ERYTHROMYCIN OPHTH 1 GM OINT 1 APPLIC EYE-LEFT (10:07)
[2020-11-13] MEDS: MOXIFLOXACIN INJ 4 MG/0.8 ML VIAL 0.5 MG EYE-OP (10:07)
[2020-11-13] MEDS: HYALURONATE SODIUM 10 MG/ML SYRINGE INJ (10:07)
[2020-11-13] MEDS: PHENYLEPHRINE/LIDOCAINE VIAL (OR) 0.2 ML EYE-OP (10:08)
[2020-11-13] MEDS: TRIAMCINOLONE 50 MG/5 ML VIAL INJ (10:08)
[2020-11-13] MEDS: BALANCED SALT IRRIG SOLN NO.2 500 ML, EPINEPHrine 1 MG IRR (10:08)
[2020-11-13 10:40] VITALS: BP 153/88; PULSE 95; RESP 18; TEMP 36.6; O2SAT 97
[2020-11-13 11:00] VITALS: BP 161/96; PULSE 97; RESP 18; TEMP 36.4; O2SAT 97
--- NOTE | 2020-11-13 11:16 | SUR.PHASEII ---
1110-Pt given all dc instructions and verbalizes understanding, instructions given to at curbside as well, iv dcd site clear, pt up and ambulating gait steady, dressed and ready to go now.
== END 2020-11-13 11:10 | disposition home or self-care (01) ==
LOC: OR 08:21
PROVIDERS: Family Provider Internal Medicine; PCP Internal Medicine; Referring Provider Internal Medicine; Visit Provider Ophthalmology
PROC: (CPT 66984; principal; 2020-11-13 09:45)
DX: H25.812 Combined forms of age-related cataract, left eye (principal); I48.91 Unspecified atrial fibrillation; Z79.01 Long term (current) use of anticoagulants; I11.0 Hypertensive heart disease with heart failure; E78.00 Pure hypercholesterolemia, unspecified
CPT/HCPCS: 66984; 85610; J0171; J2704; J3301; J3470

== ENCOUNTER → 2020-11-25 13:44 | Outpatient (CLI) | payer OTHER, SELFPAY ==
[2020-04-23 08:13] VITALS: BMI 27.4
[2020-11-25 16:51] LABS: COVID19 -Nasal RAPID Negative (Negative)
== END ==
PROVIDERS: Family Provider Internal Medicine; PCP Internal Medicine; Visit Provider Physician Assistant
DX: Z01.812 Encounter for preprocedural laboratory examination (principal); Z20.822 Contact with and (suspected) exposure to COVID-19
CPT/HCPCS: 87635

== ENCOUNTER 2020-11-27 07:20 | Day surgery (SDC) | payer OTHER, SELFPAY ==
[2020-04-23 08:13] VITALS: BMI 27.4
--- NOTE | 2020-11-26 16:57 | PM.PREOP ---
Pre-operative Note COVID-19 COVID-19 status: Negative Interval Note History & Physical reviewed/Exam performed by Physician: Yes Changes to H&P: No H&P completed within 30 days and has changed as indicated here:: INR today is 1.7.
--- NOTE | 2020-11-27 07:11 | PM.OP.1 ---
Operative Date/Time/Diagnoses Date of procedure: 11/27/20 Time of procedure: 08:45 Procedure & Clinicians Procedure: Preoperative diagnoses: 1. Right significant nuclear sclerotic and cortical cataract. 2. Risk for floppy iris syndrome due to the use of a sympathomimetic. 3. Anticoagulation with warfarin for atrial fibrillation. 4. Hypertension. 5. Congestive heart failure. Postoperative diagnoses: 1. Cataract removed by phacoemulsification with placement of posterior chamber intraocular lens. Procedure: Phacoemulsification with posterior chamber intraocular lens implant Surgeon: Clotilde Joel MD Complications: None Specimen: None Implant: DIBOO+16.5 -250 target Blood loss: None Anesthesia: Retrobulbar with monitored standby Description of procedure: Patient presents with a complaint of decreased vision due to cataract which is affecting activities of daily living at distance. The patient wants surgery to improve vision. He desires a-250 target. He has held his warfarin to try to reduce the bleeding to an INR of less 2. He also held doxazosin this morning which increased risk of floppy iris syndrome. The patient was taken to the operating room and given IV sedation. A retrobulbar block consisting of 6 cc of 2% xylocaine without epinephrine mixed half and half with 0.5% Marcaine with 1 cc of hyaluronidase added is placed between the medial and lateral 1/3 of the inferior orbital rim. The eye is manually massaged for 30 sec, prepped using Betadine solution, and draped in the usual sterile fashion. Temporal approach was made, a 1 mm side-port incision was made 90? from the proposed clear corneal incision position. Phenylephrine 1.5% mixed with 1% xylocaine 0.2 cc was placed into the anterior chamber. Viscoat followed by Terri was then placed. A 2.6 mm clear incision with a 2.6 mm blade was placed. A 360 degree capsulorrhexis style capsulotomy was then performed with a cystitome needle on a Healon. Hydrodelineation and hydrodissection were performed. The phacoemulsification unit is introduced, and sculpting notice used to groove the central lens. It is then removed in chopping mode. Epi nucleus is removed with epinuclear mode and irrigation aspiration was used to remove the peripheral cortex. The posterior capsule is polished. The intraocular lens is selected, inspected, power confirmed, and placed in the posterior chamber. The wound was stromally hydrated and tested for leaks, there was none and it was left sutureless. Vigamox 0.1 cc was placed into the anterior chamber. Kenalog 0.2 cc was placed in the superior subconjunctival space. A drop of antibiotic and was placed and the eye was patched and shielded. The patient was stable and returned to the recovery room in excellent condition. He did not exhibit floppy iris syndrome. Dictated by: Clotilde Joel MD Copy to: [facility] Same procedure as scheduled: Yes
[2020-11-27 07:43] VITALS: BP 160/93; PULSE 90; RESP 18; TEMP 36.6; O2SAT 99; BMI 24.3
[2020-11-27] MEDS: CATARACT EYE COMPOUND (10 DROPS/SYRINGE) 3 DROPS EYE-OP (07:59)
[2020-11-27] MEDS: PROPARACAINE 0.5% OPHTH SOL 2 DROPS EYE-OP (07:59)
--- NOTE | 2020-11-27 08:21 | SUR.OPER ---
Supine on eye stretcher, head on extension cradle secured with tape. Arms tucked at sides with blanket. Pillow under knees.
[2020-11-27] MEDS: BALANCED SALT IRRIG SOLN NO.2 500 ML, EPINEPHrine 1 MG IRR (09:09)
[2020-11-27] MEDS: TRIAMCINOLONE 50 MG/5 ML VIAL INJ (09:10)
[2020-11-27] MEDS: PHENYLEPHRINE/LIDOCAINE VIAL (OR) 0.2 ML EYE-OP (09:11)
[2020-11-27] MEDS: MOXIFLOXACIN INJ 4 MG/0.8 ML VIAL 0.5 MG EYE-OP (09:11)
[2020-11-27] MEDS: LIDOCAINE 2% 4 ML, BUPIVACAINE 0.5% (PF) 4 ML, HYALURONIDASE 150 UNIT INJ (09:12)
[2020-11-27] MEDS: ERYTHROMYCIN OPHTH 1 GM OINT 1 APPLIC EYE-RIGHT (09:13)
[2020-11-27] MEDS: HYALURONATE SODIUM 10 MG/ML SYRINGE INJ (09:23)
[2020-11-27 09:40] VITALS: BP 168/89; PULSE 72; RESP 14; TEMP 36.7; O2SAT 100
== END 2020-11-27 09:47 | disposition home or self-care (01) ==
LOC: OR 07:24
PROVIDERS: Family Provider Internal Medicine; PCP Internal Medicine; Referring Provider Ophthalmology; Visit Provider Ophthalmology
PROC: (CPT 66984; principal; 2020-11-27 08:45)
DX: H25.811 Combined forms of age-related cataract, right eye (principal); I48.91 Unspecified atrial fibrillation; Z79.01 Long term (current) use of anticoagulants; I10 Essential (primary) hypertension; I50.9 Heart failure, unspecified
CPT/HCPCS: 66984; 85610; J0171; J3301; J3470

== ENCOUNTER → 2021-06-24 10:27 | Outpatient (CLI) | payer OTHER, SELFPAY ==
[2020-04-23 08:13] VITALS: BMI 27.4
[2021-06-24 11:49] LABS: Alanine Aminotransferase 19 IU/L (<50); Albumin 4.7 g/dL (3.5-5.0); Albumin Globulin Ratio 1.6 (1.0-2.8); Alkaline Phosphatase 58 U/L (38-126); Aspartate Aminotransferase 30 IU/L (17-59); BUN Creatinine Ratio 20.6 (6-22); Bilirubin Total 1.6 mg/dL (0.2-1.3); Blood Urea Nitrogen 22 mg/dL (9-20); Calcium 9.8 mg/dL (8.4-10.2); Carbon Dioxide 29 mmol/L (22-32); Chloride 103 mmol/L (98-107); Cholesterol 148 mg/dL (140-199); Estimated Glomerular Filt Rate > 60.0 mL/min (>60); Globulin 2.9 g/dL (1.7-4.1); Glucose 119 mg/dL (80-110); HDL Cholesterol 71 mg/dL (40-60); HEMOLYSIS < 15 (0-50); LDL Cholesterol Calculated 63 mg/dL (<100); Magnesium 2.1 mg/dL (1.6-2.3); Potassium 4.6 mmol/L (3.4-5.1); Sodium 138 mmol/L (137-145); Total Protein 7.6 g/dL (6.3-8.2); Triglycerides 70 mg/dL (35-150)
== END ==
PROVIDERS: Family Provider Internal Medicine; PCP Internal Medicine; Referring Provider Specialist; Visit Provider Specialist
DX: I48.20 Chronic atrial fibrillation, unspecified (principal); E78.2 Mixed hyperlipidemia; I10 Essential (primary) hypertension
CPT/HCPCS: 36415; 80053; 80061; 83735

== ENCOUNTER → 2021-07-16 10:33 | Outpatient (CLI) | payer OTHER, SELFPAY ==
[2020-04-23 08:13] VITALS: BMI 27.4
[2021-07-16 13:25] LABS: BUN Creatinine Ratio 16.2 (6-22); Blood Urea Nitrogen 21 mg/dL (9-20); Calcium 9.5 mg/dL (8.4-10.2); Carbon Dioxide 29 mmol/L (22-32); Chloride 105 mmol/L (98-107); Estimated Glomerular Filt Rate 53.5 mL/min (>60); Glucose 81 mg/dL (80-110); HEMOLYSIS < 15 (0-50); Sodium 142 mmol/L (137-145)
== END ==
PROVIDERS: Family Provider Internal Medicine; PCP Internal Medicine; Referring Provider Specialist; Visit Provider Specialist
DX: I10 Essential (primary) hypertension (principal); E78.2 Mixed hyperlipidemia; I48.20 Chronic atrial fibrillation, unspecified
CPT/HCPCS: 36415; 80048

== ENCOUNTER → 2021-08-28 15:31 | Outpatient (CLI) | payer OTHER, SELFPAY ==
[2020-04-23 08:13] VITALS: BMI 27.4
[2021-08-28 17:05] LABS: Blood Urea Nitrogen 21 mg/dL (9-20); Calcium 10.1 mg/dL (8.4-10.2); Carbon Dioxide 33 mmol/L (22-32); Chloride 104 mmol/L (98-107); Estimated Glomerular Filt Rate > 60.0 mL/min (>60); Glucose 112 mg/dL (80-110); HEMOLYSIS < 15 (0-50); Potassium 4.6 mmol/L (3.4-5.1); Sodium 141 mmol/L (137-145)
== END ==
PROVIDERS: Family Provider Internal Medicine; PCP Internal Medicine; Referring Provider Physician Assistant Medical; Visit Provider Physician Assistant Medical
DX: I10 Essential (primary) hypertension (principal)
CPT/HCPCS: 36415; 80048; 83735

== ENCOUNTER → 2022-01-12 10:27 | Outpatient (CLI) | payer OTHER, SELFPAY ==
[2020-04-23 08:13] VITALS: BMI 27.4
[2022-01-12 12:01] LABS: Alanine Aminotransferase 13 IU/L (<50); Albumin 4.2 g/dL (3.5-5.0); Albumin Globulin Ratio 1.6 (1.0-2.8); Alkaline Phosphatase 68 U/L (38-126); Aspartate Aminotransferase 24 IU/L (17-59); BUN Creatinine Ratio 18.7 (6-22); Bilirubin Total 1.4 mg/dL (0.2-1.3); Blood Urea Nitrogen 20 mg/dL (9-20); Calcium 9.2 mg/dL (8.4-10.2); Carbon Dioxide 27 mmol/L (22-32); Chloride 107 mmol/L (98-107); Estimated Glomerular Filt Rate > 60 mL/min (>60); Globulin 2.6 g/dL (1.7-4.1); Glucose 108 mg/dL (80-110); HEMOLYSIS < 15 (0-50); Magnesium 2.2 mg/dL (1.6-2.3); Potassium 4.3 mmol/L (3.4-5.1); Sodium 143 mmol/L (137-145); Total Protein 6.8 g/dL (6.3-8.2)
[2022-01-15 08:36] LABS: Cholesterol, Total 119 mg/dL (100-199); HDL-Cholesterol 50 mg/dL (>39); HDL-Particle (Total) 33.4 umol/L (>=30.5); LDL Particle 850 nmol/L (<1000); LDL Size 20.7 nm (>20.5); LDL-Cholsterol 54 mg/dL (0-99); LP-IR Score 55 (<=45); Small LDL- Particle 409 nmol/L (<=527); Triglycerides 72 mg/dL (0-149)
== END ==
PROVIDERS: Family Provider Internal Medicine; PCP Internal Medicine; Referring Provider Specialist; Visit Provider Specialist
DX: E78.2 Mixed hyperlipidemia (principal); I48.20 Chronic atrial fibrillation, unspecified
CPT/HCPCS: 36415; 80053; 80061; 83704; 83735

== ENCOUNTER → 2022-04-13 07:35 | Outpatient (CLI) | payer OTHER, SELFPAY ==
[2020-04-23 08:13] VITALS: BMI 27.4
--- NOTE | 2022-04-13 | DI.MRI.S_ITS ---
PROCEDURE: MR LUMBAR SPINE WO CON INDICATIONS: SPINAL STENOSIS TECHNIQUE: Noncontrast sagittal T1 spin echo and T2 fast echo, sagittal STIR, and T2 fast spin echo through the lumbar spine. In cases with scoliosis, additional coronal T2 fast spin echo may be performed. COMPARISON: None. FINDINGS: Image quality: Secondary to a computer malfunction, only 1 image of the acquired sagittal T1 weighted sequence is available for review. Alignment and Curvature: There is normal bony alignment. Bone Marrow: Marrow is of normal overall signal. No acute vertebral body compression fractures. Spinal Cord: Conus medullaris terminates at the L1 level. Visualized cord demonstrates normal signal and size. Paraspinous Soft Tissues: No paravertebral masses. T12-L1: Normal appearance. L1-L2: No significant abnormality is seen. L2-L3: Mild loss of disc height is seen. Loss of disc signal is seen. Mild generalized disc bulge is seen. Moderate facet joint hypertrophy is seen. Associated hypertrophy of the ligamentum flavum can be seen. There is mild right-sided and minimal left-sided neural foraminal narrowing. Moderate central canal narrowing is seen. L3-L4: [id number] loss of disc height and disc signal can be seen. Moderate generalized disc bulge is seen. There is a superimposed central disc protrusion. At least moderate facet hypertrophy is seen at this level. There is at least moderate bilateral neural foraminal narrowing seen. There is a degree of compression seen upon the exiting nerve roots. Moderate central canal narrowing is seen. L4-L5: Moderate loss of disc height is seen. Loss of disc signal is seen. Moderate disc bulge is seen, which is eccentric to the right. There is a superimposed central disc protrusion. There is a focal annular fissure seen posteriorly. At least moderate facet hypertrophy is seen. Associated hypertrophy of the ligamentum flavum can be seen. Fluid is seen within the facet joints themselves. There is at least moderate left-sided and moderate to severe right-sided neural foraminal narrowing. There is a degree of compression seen upon the exiting right L4 nerve root. Moderate to severe central canal narrowing is seen, as on series 5, image 28. L5-S1: The disc height is well-preserved. Loss of disc signal is seen at this level. Mild generalized disc bulge is seen. There is a superimposed central disc protrusion. At least moderate facet hypertrophy is seen. There is moderate left-sided and [id number] right-sided neural foraminal narrowing. Mild to moderate central canal narrowing is seen. IMPRESSION: Multiple levels of lumbar spine degenerative change are seen, which are worst at the L3-L4 and L4-L5 levels. Dictated by: Tobi Dial M.D. on 04/13/2022 at 14:34 Approved by: Tobi Dial M.D. on 04/13/2022 at 14:38
== END ==
PROVIDERS: Family Provider Internal Medicine; PCP Internal Medicine; Referring Provider Internal Medicine; Visit Provider Internal Medicine
DX: M48.061 Spinal stenosis, lumbar region without neurogenic claudication (principal); M47.816 Spondylosis without myelopathy or radiculopathy, lumbar region
CPT/HCPCS: 72148

== ENCOUNTER 2022-05-27 08:32 | Emergency (ER) | payer OTHER, SELFPAY ==
[2020-04-23 08:13] VITALS: BMI 27.4
[2022-05-27] VITALS (12 sets, daily range): BP systolic 165–188; BP diastolic 85–105; PULSE 75–99; RESP 20–36; TEMP 36.6; O2SAT 92–97; BMI 23.5
--- NOTE | 2022-05-27 08:38 | DI.RAD.S_ITS ---
PROCEDURE: XR CHEST 1V INDICATIONS: Shortness of breath TECHNIQUE: One view of the chest was acquired. COMPARISON: [facility], , XR CHEST 1V, 04/23/2020, 4:32. FINDINGS: Surgical changes and devices: None. Lungs and pleura: Lungs are clear. No pleural effusions or pneumothorax. Mediastinum: The cardiac contours are within normal limits. The aorta demonstrates calcification and tortuosity. Bones and chest wall: Age-appropriate bony degenerative changes are seen. No suspicious bony lesions. Overlying soft tissues appear unremarkable. IMPRESSION: Portable chest within normal limits for age. Dictated by: Tobi Dial M.D. on 05/27/2022 at 7:51 Approved by: Tobi Dial M.D. on 05/27/2022 at 7:53
[2022-05-27 09:06] LABS: Add Manual Diff / Slide Review NO; Basophils Absolute Auto 0 /uL (0-100); Basophils Percent Auto 0.8 % (0-2); Eosinophils Absolute Auto 100 /uL (0-450); Eosinophils Percent Auto 2.5 % (2-4); Hematocrit 40.1 % (41-53); Hemoglobin 13.5 g/dL (13.5-17.5); Lymphocytes Absolute Auto 800 /uL (1100-4500); Lymphocytes Percent Auto 15.7 % (25-40); Mean Corpuscular HGB Conc 33.8 % (30-36); Mean Corpuscular Hemoglobin 34.7 PG (26-34); Mean Corpuscular Volume 102.9 fL (80-100); Monocytes Absolute Auto 600 /uL (0-900); Monocytes Percent Auto 11.5 % (3-14); Neutrophils Absolute Auto 3400 /uL (1500-7000); Neutrophils Percent Auto 69.5 % (50-75); Platelet Count 141 X10^3/uL (150-400); Red Cell Distribution Width 14.9 % (11.6-14.8)
[2022-05-27 09:11] LABS: INR 2.5 (0.9-1.3); Prothrombin Time 29.2 SECONDS (10.1-12.7)
--- NOTE | 2022-05-27 09:14 | ED.SOB ---
HPI - SOB/Dyspnea General Chief Complaint: Shortness of Breath/Dyspnea Stated Complaint: Difficulty breathing Time Seen by Provider: 05/27/22 08:54 Source: patient Mode of arrival: Ambulatory Limitations: no limitations History of Present Illness HPI Narrative: This 68-year-old gentleman has a history of AFib and hypertension. He is prescribed Lasix. He presents with dyspnea. He is had a cough for several days. has acute upper respiratory infection. Patient has received influenza and COVID immunizations. With the cough he has no headache, sinus congestion, or sore throat. Cough is nonproductive. He developed significant progression of dyspnea this morning. He is no associated chest pain or palpitation. He has orthopnea. He denies peripheral edema. Related Data Home Medications Medication Instructions Recorded Confirmed doxazosin 1 mg tablet 1 mg PO BEDTIME 04/23/20 11/27/20 lovastatin 20 mg tablet 20 mg PO BEDTIME 04/23/20 11/27/20 warfarin 5 mg tablet 5 mg PO BEDTIME 04/23/20 11/27/20 potassium chloride 20 mEq 20 meq PO DAILY 11/13/20 11/27/20 tablet,extended release(part/cryst) (Klbeto-Con M) Previous Rx's Medication Instructions Recorded furosemide 40 mg tablet 40 mg PO DAILY #30 tabs 04/25/20 lisinopril 40 mg tablet 40 mg PO DAILY #30 tabs 04/25/20 metoprolol succinate 50 mg 75 mg PO BID #90 tabs 04/25/20 tablet,extended release 24 hr albuterol sulfate 90 mcg/actuation 2 inh inhalation Q4-6H PRN 05/27/22 aerosol inhaler shortness of breath or wheezing #8.5 grams inhalational spacing device #1 ea 05/27/22 (Aerochamber Mini) prednisone 20 mg tablet 40 mg PO DAILY 5 days #10 tabs 05/27/22 Allergies Allergy/AdvReac Type Severity Reaction Status Date / Time Sulfa (Sulfonamide Allergy Unknown Verified 05/27/22 08:39 Antibiotics) Review of Systems Constitutional Constitutional: Denies body ache(s), Denies chills, Denies fever(s) and Denies weakness Eyes Eyes: Denies eye discharge ENT Ears, Nose, Mouth, and Throat: Denies vertigo, Denies dizziness and Denies sore throat Cardiovascular Cardiovascular: Denies chest pain, Denies rapid heart rate, Denies pedal edema and Reports dyspnea Respiratory Respiratory: Reports cough, Reports dyspnea and Denies wheezing Gastrointestinal Gastrointestinal: Denies abdominal pain Musculoskeletal Musculoskeletal: Reports myalgias and Denies numbness Comments: No lower extremity edema. No calf tenderness. Integumentary/Breasts Skin/Breast: Denies rash Neurologic Neurologic: Denies abnormal speech, Denies vertigo, Denies dizziness, Denies memory loss, Denies numbness and Denies weakness Psychiatric Psychiatric: Denies memory loss Hematologic/Lymphatic On Anticoagulants: Yes Allergic/Immunologic Allergic/Immunologic: Denies wheezing Patient History Medical History (Updated 05/27/22 @ 11:59 by Wali Chan MD) Anticoagulated on warfarin Atrial fibrillation Hypertension Surgical History Hx of hernia repair Hx of tonsillectomy Family History Father Myocardial infarction Mother Dementia Social History household members: spouse Smoking Status: Former smoker alcohol intake: current Smoking Status: Former smoker alcohol intake frequency: 0-2 drinks per day Substance Use Type: does not use Exam Initial Vital Signs Initial Vital Signs: Vital Signs Temperature 97.9 F 05/27/22 08:34 Pulse Rate 89 05/27/22 08:34 Respiratory Rate 24 05/27/22 08:34 Blood Pressure 188/94 H 05/27/22 08:34 Pulse Oximetry 92 05/27/22 08:34 Oxygen Delivery Method 05/27/22 08:34 Const General: cooperative and comfortable Other: Mild tachypnea. [facility] Head: normocephalic and atraumatic Eyes Conjunctivae: conjunctivae normal Pupils: PERRL EOM: EOM intact bilaterally Neck Neck: No JVD Chest Chest: normal inspection of the chest Resp Other: Diffuse end expiratory wheezes. Cardio Other: Irregular, irregular rhythm, rate 80s. No murmur. GI Inspection: normal to inspection and non-distended Auscultation: normal bowel sounds Back/Spine/Pelvis Back: normal to inspection and No back tenderness Skin General: no rashes or lesions noted Neuro General: patient alert, patient awake, patient oriented x3 and no focal motor deficits Extrem General: normal to inspection, full ROM, no pedal edema and no calf tenderness Course Orders Ordered: Discontinued Medications Albuterol/Ipratropium (Albuterol/Ipratropium 3 Ml Ampul) 3 ml INH NOW ONE Stop: 05/27/22 09:23 Last Admin: 05/27/22 09:30 Dose: 3 ml Documented By: LENA Furosemide (Furosemide 40 Mg/4 Ml Vial) 40 mg IV NOW ONE Stop: 05/27/22 10:58 Last Admin: 05/27/22 11:14 Dose: 40 mg Documented By: JAIRO Prednisone (Prednisone 20 Mg Tablet) 40 mg PO NOW ONE Stop: 05/27/22 09:23 Last Admin: 05/27/22 09:44 Dose: 40 mg Documented By: ESTELLE Vital Signs Vital signs: Vital Signs - 8 hr 05/27/22 08:34 05/27/22 08:36 05/27/22 08:37 Temperature 97.9 F Pulse Rate 89 90 Respiratory Rate 24 Blood Pressure 188/94 H 188/94 H Pulse Oximetry 92 92 Oxygen Delivery Method Room Air 05/27/22 09:00 05/27/22 09:30 05/27/22 10:00 Temperature Pulse Rate 91 H 89 75 Respiratory Rate 36 H 34 H 21 Blood Pressure Pulse Oximetry 95 94 93 Oxygen Delivery Method 05/27/22 10:30 05/27/22 10:51 05/27/22 10:51 Temperature Pulse Rate 81 83 Respiratory Rate 21 22 Blood Pressure 174/85 H Pulse Oximetry 94 95 Oxygen Delivery Method 05/27/22 11:00 05/27/22 11:00 Temperature Pulse Rate 86 Respiratory Rate 23 Blood Pressure 170/91 H Pulse Oximetry 95 Oxygen Delivery Method MDM - SOB/Dyspnea Lab Data Result diagrams: 05/27/22 08:48 05/27/22 08:48 Labs: Lab Results 05/27/22 05/27/22 05/27/22 Range/Units 08:39 08:48 08:48 WBC 5.0 (4.5-11.0) X10^3/uL RBC 3.90 L (4.5-5.9) X10^6/uL Hgb 13.5 (13.5-17.5) g/dL Hct 40.1 L (41-53) % MCV 102.9 H (80-100) fL MCH 34.7 H (26-34) PG MCHC 33.8 (30-36) % RDW 14.9 H (11.6-14.8) % Plt Count 141 L (150-400) X10^3/uL Neut % (Auto) 69.5 (50-75) % Lymph % (Auto) 15.7 L (25-40) % Holmes % (Auto) 11.5 (3-14) % Eos % (Auto) 2.5 (2-4) % Baso % (Auto) 0.8 (0-2) % Neut # (Auto) 3400 (9926-7130) /uL Lymph # (Auto) 800 L (4658-8205) /uL Holmes # (Auto) 600 (0-900) /uL Eos # (Auto) 100 (0-450) /uL Baso # (Auto) 0 (0-100) /uL PT 29.2 H (10.1-12.7) SECONDS INR 2.5 H (0.9-1.3) Sodium (137-145) mmol/L Potassium (3.4-5.1) mmol/L Chloride (98-107) mmol/L Carbon Dioxide (22-32) mmol/L BUN (9-20) mg/dL Creatinine (0.66-1.25) mg/dL Estimated GFR (>60) mL/min BUN/Creatinine Ratio (6-22) Glucose (80-110) mg/dL Lactate (0.7-2.1) mmol/L Calcium (8.4-10.2) mg/dL Total Bilirubin (0.2-1.3) mg/dL AST (17-59) IU/L ALT (<50) IU/L Alkaline Phosphatase (38-126) U/L Troponin I (0.01-0.034) ng/mL NT-Pro-B Natriuret Pep (<450) pg/mL Total Protein (6.3-8.2) g/dL Albumin (3.5-5.0) g/dL Globulin (1.7-4.1) g/dL Albumin/Globulin Ratio (1.0-2.8) SARS-CoV-2 (PCR) Positive H (Negative) Influenza A (RT-PCR) Flu a negative (NEGATIVE) Influenza B (RT-PCR) Flu b negative (NEGATIVE) RSV (PCR) Positive A (Negative) 05/27/22 05/27/22 05/27/22 Range/Units 08:48 08:48 10:50 WBC (4.5-11.0) X10^3/uL RBC (4.5-5.9) X10^6/uL Hgb (13.5-17.5) g/dL Hct (41-53) % MCV (80-100) fL MCH (26-34) PG MCHC (30-36) % RDW (11.6-14.8) % Plt Count (150-400) X10^3/uL Neut % (Auto) (50-75) % Lymph % (Auto) (25-40) % Holmes % (Auto) (3-14) % Eos % (Auto) (2-4) % Baso % (Auto) (0-2) % Neut # (Auto) (9639-7925) /uL Lymph # (Auto) (3364-6083) /uL Holmes # (Auto) (0-900) /uL Eos # (Auto) (0-450) /uL Baso # (Auto) (0-100) /uL PT (10.1-12.7) SECONDS INR (0.9-1.3) Sodium 139 (137-145) mmol/L Potassium 3.9 (3.4-5.1) mmol/L Chloride 102 (98-107) mmol/L Carbon Dioxide 26 (22-32) mmol/L BUN 14 (9-20) mg/dL Creatinine 1.00 (0.66-1.25) mg/dL Estimated GFR > 60 (>60) mL/min BUN/Creatinine Ratio 14.0 (6-22) Glucose 119 H (80-110) mg/dL Lactate 1.5 (0.7-2.1) mmol/L Calcium 8.8 (8.4-10.2) mg/dL Total Bilirubin 1.6 H (0.2-1.3) mg/dL AST 23 (17-59) IU/L ALT 19 (<50) IU/L Alkaline Phosphatase 94 (38-126) U/L Troponin I 0.015 0.015 (0.01-0.034) ng/mL NT-Pro-B Natriuret Pep 2480 H (<450) pg/mL Total Protein 6.9 (6.3-8.2) g/dL Albumin 4.1 (3.5-5.0) g/dL Globulin 2.8 (1.7-4.1) g/dL Albumin/Globulin Ratio 1.5 (1.0-2.8) SARS-CoV-2 (PCR) (Negative) Influenza A (RT-PCR) (NEGATIVE) Influenza B (RT-PCR) (NEGATIVE) RSV (PCR) (Negative) Imaging Data Chest x-ray: Radiologist's Impression: No acute findings. ECG Data Attestation: I personally reviewed and interpreted this ECG as follows: (AFib rate 78 beats per minute. Narrow complex. No acute ST elevation.) MDM Narrative Medical decision making narrative: Patient is positive for both RSV and COVID. He uses Lasix as needed, if he develops edema. He does not use the medication regularly. He was given IV Lasix due to the elevated BNP. He was given prednisone as well as DuoNeb due to the wheezing. This officially cleared. He is discharged on prednisone, as well as albuterol, he has bronchospasm related to his viral respiratory illness. Discharge Plan Departure Patient Disposition: Home Clinical Impression: Respiratory syncytial virus (RSV), Acute bronchospasm, Mild congestive heart failure, COVID-19 Instructions: Bronchospasm-Adult Activity Restrictions/Additional Instructions: Continue current medications. Use furosemide as needed, follow your prior guidance. Prednisone 40 mg daily for 5 days. Albuterol 2 puffs every 4 hours as needed for cough or wheezing. Follow-up with your doctor next week as planned. Return here as needed. Prescriptions: New albuterol sulfate 90 mcg/actuation HFA aerosol inhaler 2 inh inhalation Q4-6H PRN (Reason: shortness of breath or wheezing) Qty: 8.5 0RF (DME) Aerochamber Mini Spacer See Rx Instructions .Route Qty: 1 0RF Rx Instructions: As directed prednisone 20 mg tablet 40 mg PO DAILY 5 Days Qty: 10 0RF No Action doxazosin 1 mg tablet 1 mg PO BEDTIME warfarin 5 mg tablet 5 mg PO BEDTIME Rx Instructions: Wednesday & Wednesday 5mg; All other days are 2.5mg lovastatin 20 mg tablet 20 mg PO BEDTIME lisinopril 40 mg tablet 40 mg PO DAILY Qty: 30 0RF furosemide 40 mg tablet 40 mg PO DAILY Qty: 30 0RF metoprolol succinate 50 mg tablet extended release 24 hr 75 mg PO BID Qty: 90 0RF potassium chloride [Klor-Con M20] 20 mEq tablet,ER particles/crystals 20 meq PO DAILY Referrals: Max Rangel MD [Primary Care Provider] - Visit Report Forms: Patient Portal/API
[2022-05-27 09:17] LABS: Lactate (Lactic Acid) 1.5 mmol/L (0.7-2.1)
[2022-05-27 09:19] LABS: Alanine Aminotransferase 19 IU/L (<50); Albumin 4.1 g/dL (3.5-5.0); Albumin Globulin Ratio 1.5 (1.0-2.8); Alkaline Phosphatase 94 U/L (38-126); Aspartate Aminotransferase 23 IU/L (17-59); Bilirubin Total 1.6 mg/dL (0.2-1.3); Blood Urea Nitrogen 14 mg/dL (9-20); Calcium 8.8 mg/dL (8.4-10.2); Carbon Dioxide 26 mmol/L (22-32); Chloride 102 mmol/L (98-107); Estimated Glomerular Filt Rate > 60 mL/min (>60); Globulin 2.8 g/dL (1.7-4.1); Glucose 119 mg/dL (80-110); HEMOLYSIS < 15 (0-50); Potassium 3.9 mmol/L (3.4-5.1); Sodium 139 mmol/L (137-145); Total Protein 6.9 g/dL (6.3-8.2)
[2022-05-27] MEDS: ALBUTEROL/IPRATROPIUM 3 ML AMPUL INH (09:30)
[2022-05-27 09:31] LABS: NT-proBNP (BNP-Adult 18+) 2480 pg/mL (<450); Troponin I 0.015 ng/mL (0.01-0.034)
[2022-05-27] MEDS: predniSONE 20 MG TABLET 40 MG PO (09:44)
[2022-05-27 10:36] LABS: Influenza A - CEPHEID Flu A NEGATIVE (NEGATIVE); Influenza B - CEPHEID Flu B NEGATIVE (NEGATIVE); Respiratory Syncytial Virus POSITIVE (Negative)
[2022-05-27 10:58] LABS: COVID-19 CEPHEID 4-PLEX PCR POSITIVE (Negative)
[2022-05-27] MEDS: FUROSEMIDE 40 MG/4 ML VIAL IV (11:14)
[2022-05-27 11:34] LABS: Troponin I 0.015 ng/mL (0.01-0.034)
== END 2022-05-27 12:26 | disposition home or self-care (01) ==
PROVIDERS: Emergency Provider Emergency Medicine; Family Provider Internal Medicine; PCP Internal Medicine
DX: U07.1 COVID-19 (principal); B97.4 Respiratory syncytial virus as the cause of diseases classified elsewhere; J98.01 Acute bronchospasm; I50.9 Heart failure, unspecified
CPT/HCPCS: 0241U; 36415; 71045; 80053; 83605; 83880; 84484; 85025; 85610; 87070; 87205; 93005; 93010; 96374; 99284; J1940

== ENCOUNTER → 2022-06-08 15:04 | Outpatient (CLI) | payer OTHER, SELFPAY ==
[2020-04-23 08:13] VITALS: BMI 27.4
--- NOTE | 2022-06-08 15:09 | DI.RAD.S_ITS ---
PROCEDURE: XR CHEST 2V INDICATIONS: Bacterial pneumonia, Lower left lobe TECHNIQUE: 2 views of the chest were acquired. COMPARISON: [facility], CT, CT ANGIO CHEST, 04/24/2020, 12:37. [facility], CR, XR CHEST 1V, 05/27/2022, 8:38. FINDINGS: Surgical changes and devices: None. Lungs and pleura: Minimal patchy right basilar opacities favored to represent atelectasis. Minimal blunting of the right costophrenic angle may represent pleural thickening or very small pleural effusion. No pneumothorax. No focal consolidation. Left lung appears clear. Mediastinum: Mediastinal contours are normal. Heart size is normal. Bones and chest wall: No suspicious bony abnormalities. Soft tissues appear unremarkable. IMPRESSION: Minimal patchy right basilar opacities favored to represent atelectasis. No focal consolidation. Minimal blunting of the right costophrenic angle which may represent pleural thickening or very small pleural effusion. Recommend follow up chest radiograph 4-6 weeks after treatment to document resolution of findings and/or return to baseline examination. Dictated by: Fredis Alves M.D. on 06/08/2022 at 16:18 Approved by: Fredis Alves M.D. on 06/08/2022 at 16:21
== END ==
PROVIDERS: Family Provider Internal Medicine; PCP Internal Medicine; Referring Provider Internal Medicine; Visit Provider Internal Medicine
DX: J15.9 Unspecified bacterial pneumonia (principal)
CPT/HCPCS: 71046

== ENCOUNTER → 2022-06-23 08:51 | Outpatient (CLI) | payer OTHER, SELFPAY ==
[2020-04-23 08:13] VITALS: BMI 27.4
--- NOTE | 2022-06-23 | DI.ECHO.S_ITS ---
[facility]---------+ [facility] +---------+ : : [address] : : : : [id number] : : : : Phone: [phone]+ Echocardiogram Report + + :Name: LEONARD SANDRA JR Study Date: 06/23/2022 Height: 74 in : :[facility] ReadingLocation: Weight: 172 lb : : Gender: Male BSA: 2.0 m2 : :: 1945 Age: 76 yrs BP: 140/96 mmHg: :Reason For Study: Hypertensive heart disease with heart : :failure : :Ordering Physician: : :SHANTELLE JEFFRIES Performed By: Emani Cuevas : :Referring: SHANTELLE JEFFRIES : + + Interpretation Summary Left ventricular wall thickness is mildly increased. Left ventricular systolic function appears normal without focal wall motion abnormalities. The ejection fraction is estimated to be 60-65%. The right ventricular systolic function is normal. The right ventricular systolic pressure is estimated to be at least 52 mmHg based on an estimated right atrial pressure of 8 mm Hg. The left atrium is mildly dilated. There is mild to moderate mitral regurgitation. There is moderate to severe tricuspid regurgitation. There is mild to moderate aortic regurgitation. The ascending aorta is mildly enlarged. Procedure: A two-dimensional transthoracic echocardiogram with color flow and Doppler was performed. The patient was in atrial fibrillation with heart rates between 61-92 bpm during the exam. Left Ventricle: The left ventricle is normal in size. Left ventricular wall thickness is mildly increased. Left ventricular systolic function appears normal without focal wall motion abnormalities. The ejection fraction is estimated to be 60-65%. Diastolic function could not be accurately assessed due to atrial fibrillation. Right Ventricle: The right ventricle is borderline dilated. The right ventricular systolic function is normal. Atria: The left atrium is mildly dilated. The right atrium is severely dilated. There is no Doppler evidence for an interatrial shunt. Mitral Valve: The mitral valve is normal in structure but abnormal in function. There is mild to moderate mitral regurgitation. Aortic Valve: The aortic valve is trileaflet. The aortic valve opens well. The aortic valve is mildly calcified. There is mild to moderate aortic regurgitation. Tricuspid Valve: The tricuspid valve is normal in structure and function. There is moderate to severe tricuspid regurgitation. The right ventricular systolic pressure is estimated to be at least 52 mmHg based on an estimated right atrial pressure of 8 mm Hg. Pulmonic Valve: The pulmonic valve leaflets are thin and pliable; valve motion is normal. There is mild pulmonic regurgitation. Great Vessels: The aortic root is normal size. The ascending aorta is mildly enlarged. The IVC is dilated (diameter is greater than 2.1 cm) yet it collapses greater than 50% with a sniff. This suggests a right atrial pressure of 8 mm Hg. Pericardium/ Pleura There is no pericardial effusion. There is no pleural effusion. MMode/2D Measurements & Calculations LVIDd: 4.4 cm LVOT diam: 2.0 cm LVIDs: 3.2 cm Ao root diam: 3.5 cm FS: 27.3 % asc Aorta Diam: 3.7 cm EPSS: 0.30 cm IVSd: 1.1 cm LVPWd: 1.4 cm LV hudson. diameter/BSA (cm/m^2): 2.2 LV sys. diameter/BSA (cm/m^2): 1.6 LA dimension: 5.4 cm RA long axis: 5.9 cm LA A2 area: 30.6 cm2 RA area: 22.6 cm2 LA A4 area: 34.0 cm2 RA vol: 73.2 ml LA length (vol): 6.6 cm RA : 35.9 ml/m2 LA vol: 133.0 ml LA vol index: 65.3 ml/m2 LVLs ap4: 6.2 cm LVLd ap2: 7.2 cm LVLs ap2: 5.0 cm TAPSE_phl: 1.9 cm Doppler Measurements & Calculations Ao V2 max: 124.0 cm/sec LVOT Max Korey: 89.2 cm/sec Ao V2 mean: 90.8 cm/sec LV V1 max P.2 mmHg Ao max P.0 mmHg LV V1 VTI: 18.3 cm Ao mean P.7 mmHg LIZABETH(I,D): 2.2 cm2 Ao V2 VTI: 25.6 cm LIZABETH(V,D): 2.3 cm2 sev ratio: 0.72 LIZABETH indexed to BSA (cm^2/m^2): 1.1 AI P1/2t: 412.2 msec AI dec slope: 286.3 cm/sec2 MV E max korey: 99.8 cm/sec TR max korey: 321.7 cm/sec Med Peak E' Korey: 10.3 cm/sec TR max P.6 mmHg E/E' med: 9.7 PA V2 max: 70.7 cm/sec Lat Peak E' Korey: 11.9 cm/sec PA V2 mean: 48.8 cm/sec E/E' lat: 8.4 PA mean P.0 mmHg E/e' average: 9.0 MV dec time: 0.14 sec MVA(VTI): 4.7 cm2 MV V2 mean: 53.1 cm/sec SV(LVOT): 57.5 ml MV mean P.3 mmHg MV V2 VTI: 12.3 cm AV P1/2t-pr_phl: 414.3 msec AV VR_phl: 0.72 LIZABETH(VTI)/BSA_phl: 1.1 Reading Physician:06:39 PM
[2022-06-23 10:42] LABS: Alanine Aminotransferase 15 IU/L (<50); Albumin 3.8 g/dL (3.5-5.0); Albumin Globulin Ratio 1.1 (1.0-2.8); Alkaline Phosphatase 94 U/L (38-126); Aspartate Aminotransferase 18 IU/L (17-59); BUN Creatinine Ratio 17.9 (6-22); Bilirubin Total 1.2 mg/dL (0.2-1.3); Blood Urea Nitrogen 15 mg/dL (9-20); Calcium 8.9 mg/dL (8.4-10.2); Carbon Dioxide 28 mmol/L (22-32); Chloride 104 mmol/L (98-107); Cholesterol 110 mg/dL (140-199); Estimated Glomerular Filt Rate > 60 mL/min (>60); Globulin 3.4 g/dL (1.7-4.1); Glucose 119 mg/dL (80-110); HDL Cholesterol 39 mg/dL (40-60); HEMOLYSIS < 15 (0-50); LDL Cholesterol Calculated 60 mg/dL (<100); Sodium 141 mmol/L (137-145); Total Protein 7.2 g/dL (6.3-8.2); Triglycerides 54 mg/dL (35-150)
== END ==
PROVIDERS: Family Provider Internal Medicine; PCP Internal Medicine; Referring Provider Internal Medicine; Visit Provider Internal Medicine
DX: I08.3 Combined rheumatic disorders of mitral, aortic and tricuspid valves (principal); I77.89 Other specified disorders of arteries and arterioles; I11.0 Hypertensive heart disease with heart failure; I48.20 Chronic atrial fibrillation, unspecified; E78.2 Mixed hyperlipidemia
CPT/HCPCS: 36415; 80053; 80061; 83735; 93306

== ENCOUNTER → 2022-07-10 08:16 | Outpatient (CLI) | payer OTHER, SELFPAY ==
[2020-04-23 08:13] VITALS: BMI 27.4
[2022-07-10 10:17] LABS: BUN Creatinine Ratio 19.6 (6-22); Blood Urea Nitrogen 18 mg/dL (9-20); Calcium 8.7 mg/dL (8.4-10.2); Carbon Dioxide 30 mmol/L (22-32); Chloride 105 mmol/L (98-107); Estimated Glomerular Filt Rate > 60 mL/min (>60); Glucose 116 mg/dL (80-110); HEMOLYSIS < 15 (0-50); Magnesium 1.9 mg/dL (1.6-2.3); Potassium 4.2 mmol/L (3.4-5.1); Sodium 143 mmol/L (137-145)
== END ==
PROVIDERS: Family Provider Internal Medicine; PCP Internal Medicine; Referring Provider Specialist; Visit Provider Specialist
DX: I10 Essential (primary) hypertension (principal); I48.20 Chronic atrial fibrillation, unspecified; I50.32 Chronic diastolic (congestive) heart failure
CPT/HCPCS: 36415; 80048; 83735

== ENCOUNTER → 2022-09-03 10:02 | Outpatient (CLI) | payer OTHER, SELFPAY ==
[2020-04-23 08:13] VITALS: BMI 27.4
[2022-09-03 10:48] LABS: Add Manual Diff / Slide Review NO; Basophils Absolute Auto 0 /uL (0-100); Basophils Percent Auto 0.6 % (0-2); Eosinophils Absolute Auto 100 /uL (0-450); Hematocrit 41.9 % (41-53); Hemoglobin 14.1 g/dL (13.5-17.5); Lymphocytes Absolute Auto 1000 /uL (1100-4500); Lymphocytes Percent Auto 19.5 % (25-40); Mean Corpuscular HGB Conc 33.6 % (30-36); Mean Corpuscular Hemoglobin 34.3 PG (26-34); Mean Corpuscular Volume 101.8 fL (80-100); Monocytes Absolute Auto 600 /uL (0-900); Neutrophils Absolute Auto 3500 /uL (1500-7000); Neutrophils Percent Auto 65.9 % (50-75); Platelet Count 155 X10^3/uL (150-400); Red Blood Cell Count 4.11 X10^6/uL (4.5-5.9); Red Cell Distribution Width 15.3 % (11.6-14.8); White Blood Cell Count 5.3 X10^3/uL (4.5-11.0)
[2022-09-03 10:58] LABS: Hemoglobin A1C% w Est Avg Glu 5.7 % (4.0-6.0)
[2022-09-03 11:05] LABS: BUN Creatinine Ratio 28.3 (6-22); Blood Urea Nitrogen 36 mg/dL (9-20); Calcium 9.3 mg/dL (8.4-10.2); Carbon Dioxide 31 mmol/L (22-32); Chloride 104 mmol/L (98-107); Estimated Glomerular Filt Rate 57 mL/min (>60); Glucose 133 mg/dL (80-110); HEMOLYSIS < 15 (0-50); Potassium 4.2 mmol/L (3.4-5.1); Sodium 142 mmol/L (137-145)
[2022-09-03 11:14] LABS: NT-proBNP (BNP-Adult 18+) 1400 pg/mL (<450)
== END ==
PROVIDERS: Orthopaedic Surgery Orthopaedic Surgery of the Spine; Family Provider Internal Medicine; PCP Internal Medicine; Referring Provider Specialist; Visit Provider Specialist
DX: Z01.812 Encounter for preprocedural laboratory examination (principal); I50.32 Chronic diastolic (congestive) heart failure; R73.9 Hyperglycemia, unspecified; R06.09 Other forms of dyspnea; I10 Essential (primary) hypertension; I48.20 Chronic atrial fibrillation, unspecified
CPT/HCPCS: 36415; 80048; 83036; 83735; 83880; 85025

== ENCOUNTER 2022-11-09 12:15 | Inpatient (IN) | payer OTHER, SELFPAY ==
[2020-04-23 08:13] VITALS: BMI 27.4
[2022-11-02 09:46] VITALS: BMI 23.1
[2022-11-09] VITALS (19 sets, daily range): BP systolic 79–179; BP diastolic 38–83; PULSE 40–71; RESP 12–19; TEMP 36.1–36.8; O2SAT 92–100; BMI 23.1
[2022-11-09] MEDS: LACTATED RINGERS 1,000 ML 120 ML IV ×4 (13:14→18:50)
--- NOTE | 2022-11-09 13:30 | PM.PREOP ---
Pre-operative Note COVID-19 COVID-19 status: Negative Result date/Date tested (Pos, Neg/Pending): 11/08/22 Criteria for continued procedure: Expected advancement of disease process, Possibility delay results in more complex future surgery or treatment, Increased loss of function, Continuing or worsening of significant or severe pain, Deterioration of the patient's condition or overall health and Delay expected to result in less-positive ultimate med/surg outcome Interval Note History & Physical reviewed/Exam performed by Physician: Yes Changes to H&P: No
[2022-11-09] MEDS: CEFAZOLIN 2 GM/100 ML PREMIX 100 ML IV ×2 (14:22→23:15)
--- NOTE | 2022-11-09 14:33 | SUR.OPER ---
Prone on spine table, head in foam head support, padded chest and pelvic supports, gel pad at knees, lower legs supported by pillows; nipples, genitalia and toes free of pressure, arms secured on foam padded arm boards at <90 degrees abduction. Tape over blanket at thigh secured to table.
[2022-11-09] MEDS: BUPIVACAINE LIPOSOME 266 MG/20 ML VIAL INJ (14:48)
[2022-11-09] MEDS: BUPIVACAINE 0.25% (PF) VIAL 30 ML INJ (14:50)
--- NOTE | 2022-11-09 16:33 | PM.OP.1 ---
Operative Date/Time/Diagnoses Date of procedure: 11/09/22 Time of procedure: 14:00 Pre-op diagnosis: 1. L4-5 spinal stenosis with neurogenic claudication 2. Lumbar spondylosis with radiculopathy Post-op diagnosis: same Procedure & Clinicians Procedure: 1. L4-5 Postero-lateral and posterior interbody fusion 2. L4-5 interbody cage placement. 3. L4-5 decompressive laminectomy with bilateral facetecomies 4. L4-5 Posterior non-segmental instrumentation 5. [place] of bone marrow from iliac crest 6. Utilization of microsurgical technique and operating microscope Same procedure as scheduled: Yes Indications: Patient has been having chronic back pain and worsening lumbar radiculopathy and symptoms of neurogenic claudication. Patient failed multiple conservative management with worsening pain weakness and numbness in his lower extremity, right worse than left. Patient has been having difficulty performing activity of daily living. After discussing risks benefits of treatment options, patient elected proceed with surgery. Surgeon: [employer] Teacher: Veronica Araujo Click Yes if Unassisted: No Anesthesia Type: General Operative Notes Closure Type: primary Specimen(s): none sent Prosthetic devices, grafts, tissues, transplants, or devices: Globus revolve screws, Rise cage Estimated Blood Loss (mL): 50 Blood products transfused: none Procedure in detail: Patient was seen in the preoperative area. Risks and benefits of the surgery was discussed with the patient. Informed consent was obtained from the patient and placed in the chart. Surgical site was marked. Patient was taken to the operative room. General anesthesia was administered. Prophylactic antibiotic was given to the patient less than 30 min before the incision was made. Patient was placed into a prone position on the Adam table. Patient's back was then prepped and draped in the sterile fashion. Time-out was performed at this time. Using AP and lateral C-arm imaging the interval between L4-5 was identified and marked on patient's back. A 2 inch incision 2 in from midline was made on the right side first. The fascia was incised in line with skin incision. Globus MARS retractors was placed inside the incision and docked onto the L4 lamina. Using microsurgical technique and operating microscope, a L4 laminectomy and L4-5 facetectomy was performed using a Kerrison rongeur. The laminectomy and facetectomy was performed in order to decompress patient's cauda equina as well as the nerve roots exiting at the L4-5 level. The disc space at L4-5 was identified. And a total diskectomy was performed at L4-5 level. The endplates were decorticated using a rasp and shaver. The total diskectomy and decortication was performed at L4-5 level in order to to accomplish a L4-5 fusion. The local bone from the laminectomy and facetectomy was saved for local bone grafting. After the total diskectomy and decortication was completed, Trifecta bone graft material was combined with local bone that was harvested earlier. At this time, a separate skin is incision was made over the iliac crest. A Jamshidi needle was inserted into the iliac crest through a separate skin incision. 5 cc of bone marrow aspiration was obtained through the separate skin incision using a Jamshidi needle from the iliac crest. The bone marrow aspiration was combined with local bone and the Trifecta bone grafting material. The bone grafting material was placed into the L4-5 interbody space along with a expandable cage. The cage was expanded to its maximum height using the torque limiting screwdriver. At this time a mirror image incision was made on the left side. The fascia was incised in line with the skin incision. Globus MARS retractor was inserted and docked onto the L4-5 posterolateral gutter. Using the power drill, posterior-lateral decortication was performed at L4-5 level until bleeding cortical bone was identified. The remaining bone grafting material was placed into the L4-5 posterior lateral gutter he order to accomplish posterolateral fusion at the L4-5 level. Using the double C-arm technique, pedicle screws were placed into the L4-5 pedicles bilaterally. This was done by placing the Jamshidi needle into the pedicles, then placing the guidewires over the Jamshidi needle, and finally placing the cannulated screws over the guidewires bilaterally. After the pedicle screws were placed, 2 titanium rods was locked into the heads of the pedicle screws using locking caps and torque limiting screwdriver. After all the hardware was placed, and confirmed with AP and lateral C-arm imaging, the wound was then irrigated with sterile normal saline and packed with Ray-Ennita gauze for 3 min to accomplish hemostasis. After the gauze was removed the deep fascia was closed with #1 Vicryl suture. The subcutaneous layer was closed with 2-0 Vicryl. The skin was closed with skin dennys. Patient tolerated the procedure well. There were no complications. Complications: none Post-operative Condition: stable Disposition: PACU Plan for aftercare: Admit to inpatient hospital
--- NOTE | 2022-11-09 16:41 | DI.RAD.S_ITS ---
PROCEDURE: XR LUMBAR SPINE 2-3V INDICATIONS: L4-5 TLIF. TECHNIQUE: Two spot fluoroscopic intraoperative views of the lumbar spine were acquired. COMPARISON: None. FINDINGS: Intraoperative spot fluoroscopic images demonstrate changes from posterior spinal fusion at the L4-L5 level with pedicle screws, interbody rods, and a disc spacer. IMPRESSION: Status post posterior spinal fusion at the L4-5 level. Approved by: Ti Jarquin M.D. on 11/09/2022 at 16:54
[2022-11-09] MEDS: hydrOXYzine pamoate 25 MG CAPSULE PO (17:17)
[2022-11-09] MEDS: OXYCODONE IR 5 MG TABLET PO (17:17)
[2022-11-09] MEDS: fentaNYL 100 MCG/2 ML INJ IV ×2 (17:17→17:23)
[2022-11-09] MEDS: HYDROMORPHONE 2 MG INJ IV ×2 (17:52→17:58)
--- NOTE | 2022-11-09 18:51 | PC.NURSE ---
Patient up to room at 1830. He had a L4-L5 TLIF. Dressing to low back is cdi with metopor tape. Patient states that he is having some pain and was medicated with dilaudid, fentanyl, vistaril, and po oxycodone down in pacu. Patient denies nausea and is tolerating some solid foods. He denies any numbness or tingling and is alert and oriented x4. IVF infusing and at bedside.
[2022-11-09] MEDS: LACTATED RINGERS 1,000 ML 125 ML IV (19:22)
[2022-11-09] MEDS: LOSARTAN 50 MG TABLET 100 MG PO (23:14)
[2022-11-09] MEDS: SENNOSIDES 8.6 MG TABLET 17.2 MG PO (23:14)
[2022-11-09] MEDS: ATORVASTATIN 20 MG TABLET PO (23:15)
[2022-11-09] MEDS: DOCUSATE 100 MG CAPSULE PO (23:15)
[2022-11-10] MEDS: ACETAMINOPHEN 325 MG TABLET 650 MG PO ×3 (00:53→13:52)
[2022-11-10 03:11] VITALS: BP 146/77; PULSE 66; RESP 15; O2SAT 96
[2022-11-10] MEDS: LACTATED RINGERS 1,000 ML 125 ML IV (04:16)
[2022-11-10] MEDS: CEFAZOLIN 2 GM/100 ML PREMIX 100 ML IV (06:04)
--- NOTE | 2022-11-10 07:38 | PM.PNPO.1 ---
Subjective Subjective Date Patient Seen: 11/10/22 Time Patient Seen: 07:38 Interval history: Patient states his pain is [id number]. Denies fever chills. No nausea vomiting. Exam Vital Signs (past 8 hours): - 11/10/22 03:11 Pulse Rate 66 Respiratory Rate 15 Blood Pressure 146/77 H Pulse Oximetry 96 Oxygen Flow Rate 0 Oxygen Delivery Method Room Air Oxygen Flow Rate 0 Narrative Exam Narrative: 77-year-old male resting comfortably in bed in no apparent distress. Neurovascular status is intact bilateral lower extremities. Const General: cooperative and comfortable Nutritional Appearance: average body habitus Orientation: alert Resp Effort & Inspection: normal respiratory effort and able to speak in complete sentences PFSH Medical History Anticoagulated on warfarin Aortic regurgitation Atrial fibrillation Gout History of COVID-19 (05/2022) History of renal insufficiency History of stent insertion of renal artery HLD (hyperlipidemia) Hypertension Osteoarthritis of spine Pulmonary HTN RSV (acute bronchiolitis due to respiratory syncytial virus) (05/2022) Skin cancer Spinal stenosis Surgical History H/O cardiac radiofrequency ablation Hx of bilateral cataract extraction (2020) Hx of hernia repair Hx of tonsillectomy Family History Father Myocardial infarction Mother Dementia Social History household members: spouse Smoking Status: Former smoker alcohol intake: current Assessment & Plan Post-op Postoperative Procedures: Procedures Operation Date: 11/09/22 14:15 Actual Procedure Side Surgeon p L4-5 TLIF Not Applicable Alba Arellano MD Postoperative day: 1 Postoperative status: doing well Postoperative plan: routine post-op care Postoperative plan narrative: Mobilize with physical therapy, limit bending, twisting, lifting Restart warfarin, patient takes 3.75 mg Wednesday, Wednesday, Wednesday, 2.5 mg Wednesday, , Wednesday, Wednesday. Disposition, likely discharge home this afternoon Quality VTE Deep Vein Thrombosis/Pulmonary Embolism Present on Admission: No
[2022-11-10 09:11] VITALS: BP 162/92; PULSE 65
[2022-11-10] MEDS: carvediloL 12.5 MG TABLET 25 MG PO (09:11)
[2022-11-10] MEDS: DOCUSATE 100 MG CAPSULE PO (09:11)
[2022-11-10 10:01] VITALS: BP 162/92; PULSE 63; RESP 18; TEMP 36.9; O2SAT 99
--- NOTE | 2022-11-10 10:15 | PT.IIE ---
Current Diagnoses Other spondylosis with radiculopathy, lumbosacral region (11/09/22) Spinal stenosis, lumbar region with neurogenic claudication (11/09/22) Surgery Performed Operation Date: 11/09/22 14:15 Actual Procedures p L4-5 TLIF(Not Applicable) - Alba Arellano MD Surgical History (Last Reviewed 11/10/22 @ 07:39 by Farrukh Gonzales PA-C) H/O cardiac radiofrequency ablation Hx of bilateral cataract extraction (2020) Hx of hernia repair Hx of tonsillectomy Medical History (Last Reviewed 11/10/22 @ 07:39 by Farrukh Gonzales PA-C) Anticoagulated on warfarin Aortic regurgitation Atrial fibrillation Gout History of COVID-19 (05/2022) History of renal insufficiency History of stent insertion of renal artery HLD (hyperlipidemia) Hypertension Osteoarthritis of spine Pulmonary HTN RSV (acute bronchiolitis due to respiratory syncytial virus) (05/2022) Skin cancer Spinal stenosis Physical Therapy Inpatient Evaluation/Re-Eval M1 PT/OT-IP Prior Functional Status Start: 11/10/22 12:33 Freq: NEEDED Status: Active Protocol: Document 11/10/22 10:15 AB (Rec: 11/10/22 12:46 AB [id number]) Medical Review Prior Functional Status Medical History Reviewed Yes Communication able to make needs known Mobility and Gait pt stated that he is independent with all mobilities and ambulation wihtout AD; occasionally uses a walking stick Social History Household Members spouse Living Arrangements House Number of Floors (Floors) Two Floors Number of Stairs To Enter/Railing? pt stays on main level of the house has 5 steps R rail +3 steps L rail ascending to enter the house Home Environment Standard Height Toilet,Walk in Shower,Built-In Shower Seat Home Equipment Front Wheel Walker,Straight Cane,Shower Seat without Backrest,Hand Held Shower,Grab Bars In Shower M2 PT-IP Current Condition Start: 11/10/22 12:33 Freq: NEEDED Status: Active Protocol: Document 11/10/22 10:15 AB (Rec: 11/10/22 12:46 AB [email or web address]) Physical Therapy Current Condition Current Condition Evaluation Date 11/10/22 Treatment Diagnosis s/p L4-5 TLIF; difficulty in walking Onset Date 05/22/23 M3 PT-IP Subjective Start: 11/10/22 12:33 Freq: NEEDED Status: Active Protocol: Document 11/10/22 10:15 AB (Rec: 11/10/22 12:46 AB [id number]) Subjective Physical Therapy Visit Type Type Initial Evaluation Visit Start Time 10:15 Visit Stop Time 10:56 Total Visit Minutes 41 Number of TOASTER OPERATOR Visits 0 Physical Therapy Visit Comments Patient Comments agreeable to do PT Therapy Pain Assessment Pain When Pain Assessed At Rest Pain Present Pain Present Pain Reported Location back Intensity 2 Scale Used Numeric (0 - 10) Pain Management Techniques Modification of Treatment,Re- positioning,Timing of Activity with Medications M4 PT-IP Mobility and Gait Start: 11/10/22 12:33 Freq: NEEDED Status: Active Protocol: Document 11/10/22 10:15 AB (Rec: 11/10/22 12:46 AB [id number]) PT-Bed Mobility Assessment Rolling Type of Rolling Log Rolling Level of Assist Standby Assistance Supine to Sit Supine to Sit Standby Assistance PT-Transfer Assessment Sit to and From Stand Sit to and from Stand Standby Assistance,Contact Guard Assistance Equipment Transfer Assistive Device Gait Belt,Front Wheeled Walker Orthotic/Prosthetic Devices or Brace: No Transfers Transfer Destination Chair Transfer Technique ambulated Transfer Ability Level of Assist Standby Assistance,Contact Guard Assistance,1 Person Assistance,Use of Upper Extremities Comments Mobility Comments educated pt regarding back precautions and log roll bed mobility. pt completed supine to sit log roll SBA. able to sit on EOB SBA. completed sit to stand initial CGA. educated for techniques and pt repeated SBA. pt ambulated in room to the chair using FWW CGA. pt agreed to do stairs. sit to stand from the chair SBA and ambulated towards the stairs ~ 150 ft using FWW SBA to occasional CGA and cues for posture and to slow down for safety. pt presents with forward head and shoulder posture. pt completed up/down stairs using L rail SBA and completed again using R rail SBA. pt ambulated back to his room SBA using FWW and agreed to stay up on the chair. call light and table placed within reach. Gait Assessment Gait Gait Assistance Required: Standby Assistance,Contact Guard Assist Distance (Feet) 150 Able to Maintain Weight Bearing Status Yes During Gait Assistive Devices Assistive Device Gait Belt,Front Wheeled Walker Orthotic/Prosthetic Devices or Brace: No Gait Deviations General Gait Pattern Antalgic,Decreased Stride Length,Flexed Trunk Factors Limiting Gait Function Factors Limiting Gait Function Decreased Activity Tolerance, Decreased Strength,Limited Range of Motion,Pain,Poor Balance,Poor Safety Awareness Stair Climbing Assessment Evaluation Level of Assist On Stairs Standby Assistance,1 Person Assistance Devices Stair Climbing Assistive Devices Left Railing,Right Railing Comments Stair Climbing Comments pls refer to mobility section for details PT-Balance Assessment Sitting Balance and Reactions Static Sitting Balance Ability Normal Dynamic Sitting Balance Ability Good Standing Balance and Reactions Static Standing Balance Ability Fair Dynamic Standing Balance Ability Fair Device Used FWW M5 PT-IP Objective Assessments Start: 11/10/22 12:33 Freq: NEEDED Status: Active Protocol: Document 11/10/22 10:15 AB (Rec: 11/10/22 12:46 AB [id number]) Orientation Orientation/Cognition Level of Alertness Alert Orientation Name Language Function Ability No Deficits Noted Safety Awareness Decreased Safety Awareness Memory Description No Deficits Noted Gross Range of Motion Lower Extremity ROM Assessment Within Functional Limits Strength Lower Extremity Strength Assessment Within Functional Limits Coordination Assessment Gross Coordination Gross Coordination WNL Sensation Assessment Sensation Gross Sensation Right LE Impaired,Left LE Impaired Comments Sensation Comments slight numbness on all toes per pt Muscle Tone Muscle Tone WNL Yes M6 PT-IP Treatment Start: 11/10/22 12:33 Freq: NEEDED Status: Active Protocol: Document 11/10/22 10:15 AB (Rec: 11/10/22 12:46 AB [id number]) Physical Therapy Treatment Education Education Provided Precautions,Weight Bearing Status,Post-Op Packet,Safety M7 PT-IP Assessment and Plan Start: 11/10/22 12:33 Freq: NEEDED Status: Active Protocol: Document 11/10/22 10:15 AB (Rec: 11/10/22 12:46 AB [email or web address]) PT Summary Assessment and Plan Potential Rehabilitation Potential Fair Status of Condition at Evaluation Stable Summary Impairments Pain,ROM,Balance,Coordination, Sensation,Bed Mobility, Transfers,Gait,Activity Tolerance Assessment Summary pt s/p L4-5 TLIF POD 1. pt requiring SBA to CGA with mobility using FWW and plans to go home with spouse to assist pt. pt wants to go home today and may go home when medically stable. Goals Bed Mobility Goal Independent Transfer Goal Independent,Front Wheeled Walker Gait Goal Independent,Front Wheel Walker Gait Distance 250 Other Goals up/down 3 steps L rail + 5 steps R rail ascending mod I Days to Meet Goals 3 Frequency of Treatment Frequency Of Treatment Twice a Day Treatment Plan Physical Therapy Treatment Plan Bed Mobility Training,Transfer Training,Gait Training, Therapeutic Exercise,Balance Retraining,Post Op Education, Discharge Planning,Hot or Cold Pack,Neuromuscular Re-ed, Coordination Retraining,Manual Therapy Precautions Lumbar Precautions Log Roll,No Twisting,Limit Bending,Lifting Restriction of 10 lbs,Gait Belt above Incisional Area Recommendations To Nursing Amount of Assist Needed 1 Person Assist Discharge Recommendations PT Discharge Recommendations Home with Assistance Transportation Needs at Discharge Private Vehicle
--- NOTE | 2022-11-10 11:30 | OT.IP.EVAL ---
Current Diagnoses Other spondylosis with radiculopathy, lumbosacral region (11/09/22) Spinal stenosis, lumbar region with neurogenic claudication (11/09/22) Surgery Performed Operation Date: 11/09/22 14:15 Actual Procedures p L4-5 TLIF(Not Applicable) - Alba Arellano MD Past Medical History (Last Reviewed 11/10/22 @ 07:39 by Farrukh Gonzales PA-C) Anticoagulated on warfarin Aortic regurgitation Atrial fibrillation Gout History of COVID-19 (05/2022) History of renal insufficiency History of stent insertion of renal artery HLD (hyperlipidemia) Hypertension Osteoarthritis of spine Pulmonary HTN RSV (acute bronchiolitis due to respiratory syncytial virus) (05/2022) Skin cancer Spinal stenosis Surgical History (Last Reviewed 11/10/22 @ 07:39 by Farrukh Gonzales PA-C) H/O cardiac radiofrequency ablation Hx of bilateral cataract extraction (2020) Hx of hernia repair Hx of tonsillectomy Occupational Therapy Inpatient Evaluation/Re-Eval M1 PT/OT-IP Prior Functional Status Start: 11/10/22 11:39 Freq: NEEDED Status: Active Protocol: Document 11/10/22 10:58 [facility] (Rec: 11/10/22 11:53 [facility] [id number]) Medical Review Prior Functional Status Communication Independent Mobility and Gait Pt states used a walking stick at times. Activities of Daily Living and IADL's Pt states able to do with increased time. Social History Household Members spouse Living Arrangements House Number of Floors (Floors) One Floor Number of Stairs To Enter/Railing? 7-8 steps with left rail from the garage and from the driveway 7-8 steps with right rail. Home Environment Standard Height Toilet,Walk in Shower Home Equipment Shower Seat without Backrest, Hand Held Shower Additional Social History Comment Pt has left window sill to hold to assist to get up from the toilet if needed. M2 OT-IP Current Condition Start: 11/10/22 11:39 Freq: Status: Active Protocol: Document 11/10/22 10:58 [facility] (Rec: 11/10/22 11:53 [facility] [id number]) Occupational Therapy Current Condition Current Condition Evaluation Date 11/10/22 Treatment Diagnosis S/P L4-5 LTIF Post Operative Precautions Lumbar Precautions Log Roll,No Twisting,Limit Bending,Lifting Restriction of 10 lbs,Gait Belt above Incisional Area M3 OT- IP Subjective and Pain Start: 11/10/22 11:39 Freq: Status: Active Protocol: Document 11/10/22 10:58 [facility] (Rec: 11/10/22 11:53 [facility] [id number]) OT- Subjective Occupational Therapy Visit Type Type Initial Evaluation Visit Start Time 10:58 Visit Stop Time 11:30 Total Visit Minutes 32 Occupational Therapy Visit Comments Patient Comments Pt agreed to get up and wanting to use the bathroom. Patient/Caregiver Goals TO go home. OT Pain Assessment Pain When Pain Assessed At Rest Pain Present Pain Present Denied Pain M4 OT- IP ADL's Start: 11/10/22 11:39 Freq: Status: Active Protocol: Document 11/10/22 10:58 [facility] (Rec: 11/10/22 11:53 [facility] [id number]) OT [id number]-Pfynthr Comments OT Self-Feeding Comments Not at meal time OT ADL-Grooming Comments OT Grooming Comments Pt states did prior. OT ADL-Oral Care Comments Oral Care Comments Pt states did prior. Re - emphasized to pt best to spit into a cup or hinge at his hips to best follow his back precautions. OT ADL-Dressing General Eval Lower Body Dressing Ability Maximum Assistance Areas Needing Assistance Socks Comments OT Dressing Comments Able to practice use of beef lugger and sock aid that will be helpful for LB dressing needs. Pt states to look into getting LB dressing items. OT ADL-Toileting General Evaluation Toileting Ability Standby Assistance Comments OT Toileting Comments Pt able to with the FWW over the toilet. Suggested pt bring home the urinal as he has to get up 3-4 times at night. OT ADL-Bathing Comments OT Bathing Comments Pt not wanting to shower at this time. Educated to pt best to cover the dressing with plastic wrap and tape and have his to assist. M5 OT- IP IADL's Start: 11/10/22 11:39 Freq: Status: Active Protocol: Document 11/10/22 10:58 [facility] (Rec: 11/10/22 11:53 [facility] [id number]) OT-Instrumental Activities of Daily Living Deficits IADL Deficits Identified Deficits Home Safety Awareness Awareness of Need for Assistance at Home Good Awareness Ability to Problem Solve Emergency Able to Problem Solve Situations Home Safety Comments Pt has a supportive to be able to assist with his needs at home. M6 OT- IP Functional Cognition Start: 11/10/22 11:39 Freq: Status: Active Protocol: Document 11/10/22 10:58 [facility] (Rec: 11/10/22 11:53 [facility] [id number]) Cognitive Factors Limiting Selfcare Function Cognitive Ability Level of Alertness Alert Patient Orientation Name,Place,Situation Attention Span Ability Capable of Focused Attention, Capable of Sustained Attention Ability to Follow Commands Able to Follow One Step Commands Safety Awareness Decreased Ability to Apply Precautions Cognitive Comments Cognitive Assessment Comments Pt needing initial education for safety for hand placement of pushing from surfaces to come to stand versus grabbing the FWW to stand. VC not to reach back with his right hand during log rolling needs. OT- Vision and Hearing OT- Vision Assessment Visual Acuity Glasses All The Time M7 OT- IP Mobility and Balance Start: 11/10/22 11:39 Freq: Status: Active Protocol: Document 11/10/22 10:58 [facility] (Rec: 11/10/22 11:53 [facility] [id number]) OT- Bed Mobility Assessment Supine to Sit Supine to Sit Assist Standby Assistance Sit to Supine Sit to Supine Assist Standby Assistance OT-Transfer Assessment Sit to and From Stand Sit to and from Stand Standby Assistance Transfers Transfer Ability Standby Assistance Technique Transfer Destination Bed,Chair Devices Transfer Assistive Devices Gait Belt,Front Wheeled Walker Comments Mobility Comments SBA for all mobility needs. OT- Balance Assessment Sitting Balance and Reactions Static Sitting Balance Ability Normal Dynamic Sitting Balance Ability Good Standing Balance and Reactions Static Standing Balance Ability Good Dynamic Standing Balance Ability Fair M9 OT- IP Assessment and Plan Start: 11/10/22 11:39 Freq: Status: Active Protocol: Document 11/10/22 10:58 [facility] (Rec: 11/10/22 11:53 [facility] [id number]) OT Summary Assessment and Plan Potential Rehabilitation Potential Excellent Analytic Complexity at Evaluation Low Summary OT Impairments Balance,Functional Mobility, Grooming,Dressing,Toileting, Bathing,Toilet Transfers, Shower Transfers Progress Towards Goals Progressing Toward Goals Assessment Summary Pt low complexity and main barriers initial vc for incorporate his back precautions for needs. Pt has a supportive to assist for his needs and educated her how to facundo/doff the gait belt, assist for transfers and ADL needs. Pt to go home when medically stable. Able to adjust his FWW to appropriate height. Pt looking to get beef lugger, socks aid, long handled brush. Goals Grooming Goal Independent Dressing Goal Independent Toileting Goal Independent Bathing Goal Independent Toilet Transfer Goal Independent Shower Transfer Goal Independent Days to Meet Goals 5 Frequency of Treatment Frequency Of Treatment Once a Day Treatment Plan OT Treatment Plan ADL Training,Functional Mobility,Patient/Family Education,Discharge Planning Discharge Recommendations OT Discharge Recommendations Home with Assistance Home Equipment Needs LB dressing equipment Transportation Needs at Discharge Private Vehicle
[2022-11-10 12:29] VITALS: BP 115/60; PULSE 63; RESP 18; TEMP 37; O2SAT 96
--- NOTE | 2022-11-10 13:43 | PM.DS.1 ---
History of Present Illness History of Present Illness Date Patient Seen: 11/10/22 Time Patient Seen: 13:43 Chief complaint: Back pain Narrative: Patient is sitting at bedside talking with his in no apparent distress. Patient has been mild. He was able to ambulate with physical therapy. Patient states he is ready to be discharged home. Discharge Providers Provider Date of admission: 11/09/22 12:15 Discharge Date: 11/10/22 Primary care physician: Max Rangel MD Consults: 11/02/22 11:53 Consult to Anesthesiology Routine Comment: Consulting Provider: Anesthesiologist Reason for consultation: Surgeon requested re:Cardiac history 11/09/22 18:50 Consult to Occupational Therapy Evaluate & Treat Comment: Physician Instructions: Evaluate and treat Consult to Physical Therapy Evaluate & Treat Comment: Physician Instructions: Evaluate and Treat Discharge provider: Farrukh Gonzales PA-C Summary Hospital Course Discharge Diagnosis: L4-5 spinal stenosis with neurogenic claudication 2. Lumbar spondylosis with radiculopathy Hospital Course: 1. L4-5 Postero-lateral and posterior interbody fusion 2. L4-5 interbody cage placement. 3. L4-5 decompressive laminectomy with bilateral facetecomies 4. L4-5 Posterior non-segmental instrumentation 5. [place] of bone marrow from iliac crest 6. Utilization of microsurgical technique and operating microscope Same procedure as scheduled: Yes Indications: Patient has been having chronic back pain and worsening lumbar radiculopathy and symptoms of neurogenic claudication. Patient failed multiple conservative management with worsening pain weakness and numbness in his lower extremity, right worse than left.? Patient has been having difficulty performing activity of daily living.? After discussing risks benefits of treatment options, patient elected proceed with surgery. Surgeon: Alba Arellano Electrician Locomotive: Veronica Araujo Click Yes if Unassisted: No Anesthesia Type: General Operative Notes Closure Type: primary Specimen(s): none sent Prosthetic devices, grafts, tissues, transplants, or devices: Globus revolve screws, Rise cage Estimated Blood Loss (mL): 50 Blood products transfused: none Patient admitted to the hospital for the above-mentioned procedure. Patient consented to the same. Patient underwent lumbar fusion November 09, 2022. Patient back in his room recovering well as in stable condition. Patient will mobilize with physical therapy. Pain is well managed. Discharge home today in stable condition Exam Vital Signs (past 8 hours): - 11/10/22 09:11 11/10/22 10:01 11/10/22 12:29 Temperature 98.4 F 98.6 F Pulse Rate 65 63 63 Respiratory Rate 18 18 Blood Pressure 162/92 H 162/92 H 115/60 Pulse Oximetry 99 96 Oxygen Flow Rate 0 0 Oxygen Delivery Method Room Air Oxygen Flow Rate 0 Narrative Exam Narrative: 77-year-old male sitting at edge of bed in no apparent distress. New dressing is applied. Incision is clean, dry and intact. Neurovascular status is intact bilateral lower extremities. Const General: cooperative [facility] Medical History Anticoagulated on warfarin Aortic regurgitation Atrial fibrillation Gout History of COVID-19 (05/2022) History of renal insufficiency History of stent insertion of renal artery HLD (hyperlipidemia) Hypertension Osteoarthritis of spine Pulmonary HTN RSV (acute bronchiolitis due to respiratory syncytial virus) (05/2022) Skin cancer Spinal stenosis Surgical History H/O cardiac radiofrequency ablation Hx of bilateral cataract extraction (2020) Hx of hernia repair Hx of tonsillectomy Family History Father Myocardial infarction Mother Dementia Social History household members: spouse Smoking Status: Former smoker alcohol intake: current Discharge Assessment & Plan Assessment and Plan Assessment: Patient progressing as expected Plan of Treatment: Weight-bearing as tolerated, limit bending, twisting, lifting. Keep dressing clean and dry. Multimodal pain management. Discharge home today in stable condition. Discharge Plan Discharge Plan Patient Disposition: Home Discharge orders & Medications Prescriptions: New acetaminophen 325 mg Tablet 650 mg PO Q6H PRN (Reason: Fever/Mild Pain (1-3)) Qty: 60 0RF docusate sodium 100 mg Capsule 100 mg PO BID Qty: 10 0RF oxycodone 5 mg tablet 5 mg PO Q4H PRN (Reason: pain) Qty: 40 0RF Continued carvedilol 25 mg Tablet 25 mg PO BID Rx Instructions: must administer with a meal/food atorvastatin 20 mg Tablet 20 mg PO BEDTIME torsemide 10 mg Tablet 10 mg PO QAM PRN (Reason: Edema) acetaminophen 650 mg Tablet Extended Release 1,300 mg PO DAILY PRN (Reason: Pain) losartan 100 mg Tablet 100 mg PO BEDTIME doxazosin 1 mg tablet 1 mg PO BEDTIME warfarin 5 mg tablet 5 mg PO BEDTIME Patient Comments: 3.75mg M,W,F/2.5mg rest Rx Instructions: Wednesday & Wednesday 5mg; All other days are 2.5mg potassium chloride [Klor-Con M20] 20 mEq tablet,ER particles/crystals 20 meq PO DAILY PRN (Reason: With Torsemide) (DME) Aerochamber Mini Spacer See Rx Instructions .Route Qty: 1 0RF Rx Instructions: As directed Follow up/Referrals: Alba Arellano MD [Physician] - As previously scheduled (Follow up with Melva Del Toro PA-C, on 11/20/2022 @ 4:00 pm at [facility] in [place].) Max Rangel MD [Primary Care Provider] - Diet/Activity/Treatments Diet: Diet as Tolerated Activity: No deep bending or twisting at the waist. No lifting more than 10 pounds. Cold/Heat Therapy: Ice to low back as needed for pain. Skin/Wound/Dressing Care Report to your healthcare provider any signs of infection, such as:: chills, fever, night sweats, unusual drainage and unusual redness Dressing: May shower; keep dressing as dry as possible. If dressing becomes wet or dirty, may remove and replace with clean, dry gauze. No bathing or otherwise soaking incisions. Do not apply any creams, lotions, or ointments to incisions. Visit Report/Discharge Packet Instructions: DI for Prescription Opioid Use, DI for Transforaminal Lumbar Interbody Fusion Stand Alone Forms: Patient Portal/API, Stroke Signs & Symptoms, Surgery Discharge Discharge Data Primary Care Provider: Max Rangel Quality VTE Deep Vein Thrombosis/Pulmonary Embolism Present on Admission: No
== END 2022-11-10 14:10 | disposition home or self-care (01) | DRG 455 ==
PROVIDERS: Admitting Provider Orthopaedic Surgery Orthopaedic Surgery of the Spine; Family Provider Internal Medicine; PCP Internal Medicine; Referring Provider Orthopaedic Surgery Orthopaedic Surgery of the Spine; Visit Provider Orthopaedic Surgery Orthopaedic Surgery of the Spine
PROC: 0SG00AJ Fusion of Lumbar Vertebral Joint with Interbody Fusion Device, Posterior Approach, Anterior Column, Open Approach (ICD-10-PCS; principal; 2022-11-09 14:15)
DX: M47.26 Other spondylosis with radiculopathy, lumbar region (principal); M48.062 Spinal stenosis, lumbar region with neurogenic claudication; E78.5 Hyperlipidemia, unspecified; I10 Essential (primary) hypertension; Z20.822 Contact with and (suspected) exposure to COVID-19; Z87.891 Personal history of nicotine dependence; Z79.01 Long term (current) use of anticoagulants
CPT/HCPCS: 72100; 76000; 97161; 97165; 97530; 97535; C1713; C9290; J0690; J1100; J1170; J2250; J2405; J2704; J3010; J3490

== ENCOUNTER → 2023-02-10 08:36 | Outpatient (CLI) | payer OTHER, SELFPAY ==
[2022-11-09 20:04] VITALS: BMI 23.1
[2023-02-10 09:49] LABS: Alanine Aminotransferase 21 IU/L (<50); Albumin Globulin Ratio 1.4 (1.0-2.8); Alkaline Phosphatase 107 U/L (38-126); Aspartate Aminotransferase 26 IU/L (17-59); Bilirubin Total 1.1 mg/dL (0.2-1.3); Blood Urea Nitrogen 18 mg/dL (9-20); Calcium 9.3 mg/dL (8.4-10.2); Carbon Dioxide 27 mmol/L (22-32); Chloride 104 mmol/L (98-107); Estimated Glomerular Filt Rate > 60 mL/min (>60); Globulin 2.9 g/dL (1.7-4.1); Glucose 105 mg/dL (80-110); HEMOLYSIS < 15 (0-50); Magnesium 2.1 mg/dL (1.6-2.3); Potassium 4.6 mmol/L (3.4-5.1); Sodium 139 mmol/L (137-145); Total Protein 6.9 g/dL (6.3-8.2)
[2023-02-12 11:28] LABS: Cholesterol, Total 108 mg/dL (100-199); HDL-Cholesterol 56 mg/dL (>39); HDL-Particle (Total) 31.9 umol/L (>=30.5); LDL Particle 501 nmol/L (<1000); LDL Size 20.8 nm (>20.5); LDL-Cholsterol 39 mg/dL (0-99); LP-IR Score 39 (<=45); Small LDL- Particle 263 nmol/L (<=527); Triglycerides 54 mg/dL (0-149)
== END ==
PROVIDERS: Family Provider Internal Medicine; PCP Internal Medicine; Referring Provider Specialist; Visit Provider Specialist
DX: I48.20 Chronic atrial fibrillation, unspecified (principal); E78.2 Mixed hyperlipidemia
CPT/HCPCS: 36415; 80053; 80061; 83704; 83735

== ENCOUNTER 2023-04-21 02:53 | Emergency (ER) | payer OTHER, SELFPAY ==
[2022-11-09 20:04] VITALS: BMI 23.1
[2023-04-21] VITALS (14 sets, daily range): BP systolic 168–239; BP diastolic 75–107; PULSE 72–91; RESP 22–40; O2SAT 91–98; BMI 22.5
--- NOTE | 2023-04-21 03:06 | DI.RAD.S_ITS ---
PROCEDURE: XR CHEST 1V INDICATIONS: sob TECHNIQUE: One view of the chest was acquired. COMPARISON: [facility], CR, XR CHEST 2V, 06/08/2022, 15:09. [facility], CR, XR CHEST 1V, 05/27/2022, 8:38. FINDINGS: Surgical changes and devices: None. Lungs and pleura: Similar prominent interstitial markings bilaterally, likely representing chronic lung disease. No pleural effusions or pneumothorax. Mediastinum: Mediastinal contours appear normal. Heart size is borderline enlarged. Bones and chest wall: No suspicious bony lesions. Overlying soft tissues appear unremarkable. IMPRESSION: No acute cardiopulmonary process. Similar chronic lung changes. Findings are concordant with preliminary interpretation provided by [facility]. Dictated by: Ganesh Braun M.D. on 04/21/2023 at 8:20 Approved by: Ganesh Braun M.D. on 04/21/2023 at 8:21
[2023-04-21] MEDS: ALBUTEROL/IPRATROPIUM 3 ML AMPUL INH ×2 (03:13→03:30)
--- NOTE | 2023-04-21 03:18 | ED_ITS ---
HPI - SOB/Dyspnea General Chief Complaint: Shortness of Breath/Dyspnea Stated Complaint: SOB Time Seen by Provider: 04/21/23 03:06 Source: patient Mode of arrival: Ambulatory History of Present Illness HPI Narrative: Patient is a 77-year-old male history of atrial fibrillation on warfarin history of edema torsemide no history of congestive heart failure presents today with sudden onset shortness of breath. Reports that he felt like he could not breathe history about 30 minutes ago. He is obviously tachypneic with conversational dyspnea. He denies any history of asthma or COPD. However he was seen evaluated here about a year ago and given albuterol which helped. He reports feeling his normal state of health denies any fever chills. No cough feels like his chest is very tight and he can not take a deep breath. Related Data Home Medications Medication Instructions Recorded Confirmed doxazosin 1 mg tablet 1 mg PO BEDTIME 04/23/20 11/09/22 warfarin 5 mg tablet 5 mg PO BEDTIME 04/23/20 11/09/22 potassium chloride 20 mEq 20 meq PO DAILY PRN With Torsemide 11/13/20 11/09/22 tablet,extended release(part/cryst) (Klor-Con M) acetaminophen 650 mg 1,300 mg PO DAILY PRN Pain 11/02/22 11/09/22 tablet,extended release atorvastatin 20 mg tablet 20 mg PO BEDTIME 11/02/22 11/09/22 carvedilol 25 mg tablet 25 mg PO BID 11/02/22 11/09/22 losartan 100 mg tablet 100 mg PO BEDTIME 11/02/22 11/09/22 torsemide 10 mg tablet 10 mg PO QAM PRN Edema 11/02/22 11/09/22 Previous Rx's Medication Instructions Recorded inhalational spacing device #1 ea 05/27/22 (Aerochamber Mini) acetaminophen 325 mg tablet 650 mg (2 x 325 mg) PO Q6H PRN 11/10/22 Fever/Mild Pain (1-3) #60 tabs docusate sodium 100 mg capsule 100 mg PO BID #10 caps 11/10/22 oxycodone 5 mg tablet 5 mg PO Q4H PRN pain #40 tabs 11/10/22 Allergies Allergy/AdvReac Type Severity Reaction Status Date / Time Sulfa (Sulfonamide Allergy Unknown Pt unsure, Verified 11/09/22 12:33 Antibiotics) It happened in childhood Patient History Medical History Anticoagulated on warfarin Aortic regurgitation Atrial fibrillation Gout History of COVID-19 (05/2022) History of renal insufficiency History of stent insertion of renal artery HLD (hyperlipidemia) Hypertension Osteoarthritis of spine Pulmonary HTN RSV (acute bronchiolitis due to respiratory syncytial virus) (05/2022) Skin cancer Spinal stenosis Surgical History H/O cardiac radiofrequency ablation Hx of bilateral cataract extraction (2020) Hx of hernia repair Hx of tonsillectomy Family History Father Myocardial infarction Mother Dementia Social History household members: spouse Smoking Status: Former smoker alcohol intake: current Smoking Status: Former smoker alcohol intake frequency: 0-2 drinks per day Substance Use Type: does not use Exam Initial Vital Signs Initial Vital Signs: Vital Signs Pulse Rate 91 H 04/21/23 03:07 Respiratory Rate 40 H 04/21/23 03:07 Blood Pressure 239/107 H 04/21/23 03:07 Pulse Oximetry 98 04/21/23 03:07 Oxygen Delivery Method Room Air 04/21/23 03:07 GENERAL: Alert pleasant 77-year-old male in moderate respiratory distress and in no acute distress. HEENT: Head atraumatic,EOMI, pupils reactive, face symmetric, moist mucous membranes CARDIOVASCULAR: Irregularly irregular RESPIRATORY: Breath sounds clear tachypneic diminished bilaterally no wheezing or crackles ABDOMEN: Soft, nontender. Normoactive bowel sounds all 4 quadrants. No guarding or rebound. EXTREMITIES: Normal range of motion, no clubbing or edema. Neurovascularly intact NEUROLOGICAL: Alert and oriented x4.Normal gait and speech. SKIN: Warm, dry, no laceration, no petechiae, no rashes or lesions. Course Orders Ordered: ED Orders 04/21/23 EKG-12 Lead Routine 04/21/23 03:06 Chest [XR chest 1V] Stat EKG-12 Lead Stat 04/21/23 03:20 Complete Blood Count AUTO DIFF Stat Comprehensive Metabolic Panel Stat D Dimer Stat Lipase Stat NT-proBNP (BNP-Adult 18+) Stat PTT Partial Thromboplastin Deuce Stat Prothrombin Time INR Stat Troponin & CK Cardiac Panel Stat 04/21/23 05:35 Trop I [Troponin I] Stat Discontinued Medications Albuterol (Albuterol 2.5 Mg/3 Ml Neb (Adult)) 5 mg INH NOW ONE Stop: 04/21/23 03:27 Last Admin: 04/21/23 04:53 Dose: Not Given Documented By: OLI Albuterol (Albuterol Hfa Prepack) 1 box MISC SEEINSTR ONE Stop: 04/21/23 06:41 Last Admin: 04/21/23 06:44 Dose: 1 box Documented By: MR Albuterol/Ipratropium (Albuterol/Ipratropium 3 Ml Ampul) 3 ml INH NOW ONE Stop: 04/21/23 03:07 Last Admin: 04/21/23 03:13 Dose: 3 ml Documented By: Albuterol/Ipratropium (Albuterol/Ipratropium 3 Ml Ampul) 3 ml INH NOW ONE Stop: 04/21/23 03:27 Last Admin: 04/21/23 03:30 Dose: 3 ml Documented By: Furosemide (Furosemide 40 Mg/4 Ml Vial) 40 mg IV NOW ONE Stop: 04/21/23 04:03 Last Admin: 04/21/23 04:06 Dose: 40 mg Documented By: OLI Methylprednisolone (Methylprednisolone 125 Mg/2 Ml Vial) 125 mg IV NOW ONE Stop: 04/21/23 03:27 Last Admin: 04/21/23 03:39 Dose: 125 mg Documented By: OLI Vital Signs Vital signs: Vital Signs - 8 hr 04/21/23 03:07 04/21/23 03:10 04/21/23 03:29 Pulse Rate 91 H 83 76 Respiratory Rate 40 H 36 H 29 H Blood Pressure 239/107 H Pulse Oximetry 98 98 97 Oxygen Delivery Method Room Air 04/21/23 03:29 04/21/23 03:30 04/21/23 03:30 Pulse Rate 72 Respiratory Rate 28 H Blood Pressure 209/93 H 225/105 H Pulse Oximetry 97 Oxygen Delivery Method 04/21/23 04:00 04/21/23 04:01 04/21/23 04:01 Pulse Rate 74 77 Respiratory Rate 23 24 Blood Pressure 209/93 H Pulse Oximetry 97 97 Oxygen Delivery Method 04/21/23 04:30 04/21/23 04:31 04/21/23 04:31 Pulse Rate 86 79 Respiratory Rate 26 H 22 Blood Pressure 198/91 H Pulse Oximetry 96 96 Oxygen Delivery Method 04/21/23 05:00 04/21/23 05:00 04/21/23 05:30 Pulse Rate 77 75 Respiratory Rate 23 22 Blood Pressure 215/93 H Pulse Oximetry 96 92 Oxygen Delivery Method 04/21/23 05:31 04/21/23 05:31 04/21/23 06:00 Pulse Rate 77 Respiratory Rate 23 Blood Pressure 168/75 H 183/88 H Pulse Oximetry 91 Oxygen Delivery Method 04/21/23 06:00 04/21/23 06:33 04/21/23 06:34 Pulse Rate 79 87 79 Respiratory Rate 24 24 Blood Pressure Pulse Oximetry 93 95 93 Oxygen Delivery Method 04/21/23 06:34 Pulse Rate Respiratory Rate Blood Pressure 187/85 H Pulse Oximetry Oxygen Delivery Method MDM - SOB/Dyspnea Lab Data 04/21/23 03:20 04/21/23 03:20 Labs: Lab Results 04/21/23 04/21/23 Range/Units 03:20 05:35 WBC 7.8 (4.5-11.0) X10^3/uL RBC 3.82 L (4.5-5.9) X10^6/uL Hgb 13.3 L (13.5-17.5) g/dL Hct 39.6 L (41-53) % MCV 103.6 H (80-100) fL MCH 34.8 H (26-34) PG MCHC 33.5 (30-36) % RDW 15.7 H (11.6-14.8) % Plt Count 152 (150-400) X10^3/uL Neut % (Auto) 79.0 H (50-75) % Lymph % (Auto) 12.8 L (25-40) % Caroline % (Auto) 5.7 (3-14) % Eos % (Auto) 2.0 (2-4) % Baso % (Auto) 0.5 (0-2) % Neut # (Auto) 6200 (2279-7903) /uL Lymph # (Auto) 1000 L (6812-9257) /uL Caroline # (Auto) 400 (0-900) /uL Eos # (Auto) 200 (0-450) /uL Baso # (Auto) 0 (0-100) /uL PT 33.7 H (10.1-12.7) SECONDS INR 2.9 H (0.9-1.3) APTT 40 H (26-36) SECONDS D-Dimer 236 (<500) ng/ml Sodium 142 (137-145) mmol/L Potassium 4.6 (3.4-5.1) mmol/L Chloride 108 H (98-107) mmol/L Carbon Dioxide 23 (22-32) mmol/L BUN 21 H (9-20) mg/dL Creatinine 1.01 (0.66-1.25) mg/dL Estimated GFR > 60 (>60) mL/min BUN/Creatinine Ratio 20.8 (6-22) Glucose 136 H (80-110) mg/dL Calcium 9.3 (8.4-10.2) mg/dL Total Bilirubin 1.9 H (0.2-1.3) mg/dL AST 28 (17-59) IU/L ALT 25 (<50) IU/L Alkaline Phosphatase 115 (38-126) U/L Total Creatine Kinase 59 (55-170) U/L Troponin I 0.021 0.041 H (0.01-0.034) ng/mL NT-Pro-B Natriuret Pep 3260 H (<450) pg/mL Total Protein 7.4 (6.3-8.2) g/dL Albumin 4.1 (3.5-5.0) g/dL Globulin 3.3 (1.7-4.1) g/dL Albumin/Globulin Ratio 1.2 (1.0-2.8) Lipase 93 (23-300) U/L ECG Data Interpretation: Atrial fibrillation rate [address] changes EKG 2. Atrial fibrillation rate [address] changes similar to previous EKGs in 2021 MDM Narrative Medical decision making narrative: Patient is 77-year-old male history of atrial fibrillation on warfarin presenting today with sudden onset shortness of breath. On exam he is obviously tachypneic with decreased breath sounds bilaterally. He is no evidence of fluid overload or sign of congestive heart failure. Patient initially improved with DuoNeb treatment but has no history of asthma or COPD or smoking but did help him quite a bit. BNP is elevated at 3260 previously was 1400. Initial troponin 0.021 with a repeat 0.041. He is given Lasix he has urinated quite a bit actually. Breathing improved significantly no longer tachypneic after albuterol and Lasix. Chest x-ray is clear not having any infectious symptoms. At this time he had sudden onset shortness of breath no EKG changes. Significant improvement with DuoNeb and Lasix. Not requiring oxygen at any point in time does not need BiPAP. He ambulated with pulse ox no significant tachypnea. He has previously been on torsemide if he has gained weight he is gained weight. He is also given albuterol with spacer and teaching. Discharge Plan Departure Patient Disposition: Home Clinical Impression: CHF (congestive heart failure), Mild reactive airways disease Instructions: DI for Heart Failure, DI for Reactive Airway Disease-Adult Activity Restrictions/Additional Instructions: *You have been diagnosed with congestive heart failure, reactive airway *What to do: At this time you were found to have some mild congestive heart failure and fluid on your lungs however he responded very well to albuterol. Please be sure to monitor your blood pressure at home. Interval pressure was noted to be elevated here in the ED *Continue to take medications as directed Take torsemide as directed for 2-3 days and potassium Albuterol inhaler 1-2 puffs every 4 hours if needed for shortness of *Follow up with your primary care provider in 2-3 days or call [phone] *Return to ER if you should have increasing chest pain shortness of breath or any new, worsening or concerning symptoms Prescriptions: No Action carvedilol 25 mg Tablet 25 mg PO BID Rx Instructions: must administer with a meal/food atorvastatin 20 mg Tablet 20 mg PO BEDTIME torsemide 10 mg Tablet 10 mg PO QAM PRN (Reason: Edema) acetaminophen 650 mg Tablet Extended Release 1,300 mg PO DAILY PRN (Reason: Pain) losartan 100 mg Tablet 100 mg PO BEDTIME acetaminophen 325 mg Tablet 650 mg PO Q6H PRN (Reason: Fever/Mild Pain (1-3)) Qty: 60 0RF docusate sodium 100 mg Capsule 100 mg PO BID Qty: 10 0RF oxycodone 5 mg tablet 5 mg PO Q4H PRN (Reason: pain) Qty: 40 0RF doxazosin 1 mg tablet 1 mg PO BEDTIME warfarin 5 mg tablet 5 mg PO BEDTIME Patient Comments: 3.75mg M,W,F/2.5mg rest Rx Instructions: Wednesday & Wednesday 5mg; All other days are 2.5mg potassium chloride [Klor-Con M20] 20 mEq tablet,ER particles/crystals 20 meq PO DAILY PRN (Reason: With Torsemide) (DME) Aerochamber Mini Spacer See Rx Instructions .Route Qty: 1 0RF Rx Instructions: As directed Referrals: Max Rangel MD [Primary Care Provider] - Stand Alone Forms: Patient Portal/API
[2023-04-21 03:29] LABS: Add Manual Diff / Slide Review NO; Basophils Absolute Auto 0 /uL (0-100); Basophils Percent Auto 0.5 % (0-2); Eosinophils Absolute Auto 200 /uL (0-450); Hematocrit 39.6 % (41-53); Hemoglobin 13.3 g/dL (13.5-17.5); Lymphocytes Absolute Auto 1000 /uL (1100-4500); Lymphocytes Percent Auto 12.8 % (25-40); Mean Corpuscular HGB Conc 33.5 % (30-36); Mean Corpuscular Hemoglobin 34.8 PG (26-34); Mean Corpuscular Volume 103.6 fL (80-100); Monocytes Absolute Auto 400 /uL (0-900); Monocytes Percent Auto 5.7 % (3-14); Neutrophils Absolute Auto 6200 /uL (1500-7000); Platelet Count 152 X10^3/uL (150-400); Red Blood Cell Count 3.82 X10^6/uL (4.5-5.9); Red Cell Distribution Width 15.7 % (11.6-14.8); White Blood Cell Count 7.8 X10^3/uL (4.5-11.0)
[2023-04-21 03:35] LABS: INR 2.9 (0.9-1.3); Prothrombin Time 33.7 SECONDS (10.1-12.7)
[2023-04-21 03:37] LABS: D Dimer 236 ng/ml (<500)
[2023-04-21 03:38] LABS: PTT Partial Thromboplastin Tim 40 SECONDS (26-36)
[2023-04-21 03:39] LABS: Alanine Aminotransferase 25 IU/L (<50); Albumin 4.1 g/dL (3.5-5.0); Albumin Globulin Ratio 1.2 (1.0-2.8); Alkaline Phosphatase 115 U/L (38-126); Aspartate Aminotransferase 28 IU/L (17-59); BUN Creatinine Ratio 20.8 (6-22); Bilirubin Total 1.9 mg/dL (0.2-1.3); Blood Urea Nitrogen 21 mg/dL (9-20); Calcium 9.3 mg/dL (8.4-10.2); Carbon Dioxide 23 mmol/L (22-32); Chloride 108 mmol/L (98-107); Creatine Kinase 59 U/L (55-170); Estimated Glomerular Filt Rate > 60 mL/min (>60); Globulin 3.3 g/dL (1.7-4.1); Glucose 136 mg/dL (80-110); HEMOLYSIS < 15 (0-50); Lipase 93 U/L (23-300); Potassium 4.6 mmol/L (3.4-5.1); Sodium 142 mmol/L (137-145); Total Protein 7.4 g/dL (6.3-8.2)
[2023-04-21] MEDS: methylPREDNISolone 125 MG/2 ML VIAL IV (03:39)
[2023-04-21 03:51] LABS: NT-proBNP (BNP-Adult 18+) 3260 pg/mL (<450); Troponin I 0.021 ng/mL (0.01-0.034)
--- NOTE | 2023-04-21 04:00 | PC.NURSE ---
pt breathing easier, states he is feeling better
[2023-04-21] MEDS: FUROSEMIDE 40 MG/4 ML VIAL IV (04:06)
[2023-04-21 06:01] LABS: Troponin I 0.041 ng/mL (0.01-0.034)
[2023-04-21] MEDS: ALBUTEROL HFA PREPACK 1 BOX MISC (06:44)
== END 2023-04-21 06:54 | disposition home or self-care (01) ==
PROVIDERS: Emergency Provider Emergency Medicine; Family Provider Internal Medicine; PCP Internal Medicine
DX: I50.9 Heart failure, unspecified (principal); J45.909 Unspecified asthma, uncomplicated; Z79.01 Long term (current) use of anticoagulants; Z79.899 Other long term (current) drug therapy
CPT/HCPCS: 36415; 71045; 80053; 82550; 83690; 83880; 84484; 85025; 85379; 85610; 85730; 93005; 94640; 96374; 96375; 99284; J1940; J2930

== ENCOUNTER → 2023-06-07 07:50 | Outpatient (CLI) | payer OTHER, SELFPAY ==
[2022-11-09 20:04] VITALS: BMI 23.1
--- NOTE | 2023-06-07 | DI.ECHO.S_ITS ---
[facility]---------+ [facility] +---------+ : : [address] [place] : : : : [id number] : : : : Phone: [phone] Echocardiogram Report + + :Name: LEONARD SANDRA JR Study Date: 06/07/2023 Height: 72 in : :[facility] ReadingLocation: Weight: 180 lb : : Gender: Male BSA: 2.0 m2 : :: 1945 Age: 77 yrs BP: 172/84 mmHg: :Reason For Study: HYPERTENSIVE HEART DISEASE : :Ordering Physician: MERVIN, : :SHANTELLE Performed By: Emani Erivn : :Referring: SHANTELLE JEFFRIES : + + Interpretation Summary Left ventricular systolic function remains normal with an estimated ejection fraction of 60 to 65% without focal abnormality and appears unchanged from the previous study. Left ventricular size and wall thickness remain normal and unchanged. Diastolic function remains challenging to assess but is likely unchanged from the previous study. The right ventricle is borderline enlarged with systolic function at the lower limits of normal and appears slightly larger compared to the previous study. Right ventricular systolic pressure is estimated at 60 mmHg with a CVP of 8 mmHg, likely similar to the previous study although the previous report erroneously estimated the peak velocity at 52 mmHg when it was actually closer to 60 mmHg. There is moderate left atrial enlargement, measuring smaller compared to the previous exam, and severe right atrial enlargement, measuring moderately larger. There is mild to moderate mitral regurgitation and mild aortic valve sclerosis with mild aortic regurgitation that appear unchanged. There is moderate tricuspid regurgitation that appears slightly progressive. The aortic root is borderline enlarged measuring 3.7 cm, compared to 3.5 cm previously. The ascending aorta remains mildly enlarged but unchanged at 3.6 cm. The aortic arch is also mildly enlarged at 3.4 cm and was unable to be measured on the previous study. The patient was in atrial fibrillation at 59 to 79 bpm, similar to the previous exam, perhaps slightly slower. The patient was moderately hypertensive during this study. Procedure: A two-dimensional transthoracic echocardiogram with color flow and Doppler was performed. The study quality was technically adequate. Comparison is made with the echocardiogram of 06/23/2022. The patient was in atrial fibrillation with heart rates between 59-79 bpm during the exam. Left Ventricle: The left ventricle is normal in size and wall thickness. The estimated left ventricular end diastolic volume is 78 mL compared to the previous 95 ml. Left ventricular systolic function appears normal without focal wall motion abnormalities. The ejection fraction is estimated to be 60- 65%. There has been no significant change since the previous study. Diastolic function could not be accurately assessed due to atrial fibrillation. This is unchanged compared to the previous study. Right Ventricle: The right ventricle is borderline dilated. Right ventricular systolic function is at the lower limits of normal. This is slightly larger but otherwise unchanged compared to the previous study. Atria: The left atrium is moderately dilated. This is smaller compared to the previous study. The right atrium is severely dilated. The right atrium has mildly increased in size since the prior echo exam. There is no Doppler evidence for an interatrial shunt. Mitral Valve: There is mild mitral annular calcification. The mitral valve leaflets are slightly calcified. There is a flat closure plane of the the mitral valve leaflets. There is mild to moderate mitral regurgitation. There are multiple regurgitant jets present. This is unchanged compared to the previous study. Aortic Valve: The aortic valve is trileaflet. The aortic valve is mildly calcified. There is minimally reduced leaflet mobility. There is mild aortic regurgitation. This is unchanged compared to the previous study. Tricuspid Valve: The tricuspid valve is normal in structure but is abnormal in function. There is moderate tricuspid regurgitation. This is slightly more prominent compared to the previous study. The right ventricular systolic pressure is estimated to be at least 60 mmHg based on an estimated right atrial pressure of 8 mm Hg. This is unchanged compared to the previous study. Pulmonic Valve: The pulmonic valve is not well seen, but is grossly normal. There is trace pulmonic regurgitation. Great Vessels: The aortic root is borderline dilated. This is slightly larger compared to the previous study. The ascending aorta is mildly enlarged. This is unchanged compared to the previous study. The aortic arch is mildly enlarged. The IVC is dilated (diameter is greater than 2.1 cm) yet it collapses greater than 50% with a sniff. This suggests a right atrial pressure of 8 mm Hg. Pericardium/ Pleura There is no pericardial effusion. There is no pleural effusion. MMode/2D Measurements & Calculations LVIDd: 5.2 cm LVOT diam: 2.0 cm LVIDs: 3.2 cm Ao root diam: 3.7 cm FS: 37.6 % asc Aorta Diam: 3.6 cm IVSd: 0.82 cm Ao Arch Diam (Prox Trans): 3.4 cm LVPWd: 0.92 cm LV hudson. diameter/BSA (cm/m^2): 2.5 LV sys. diameter/BSA (cm/m^2): 1.6 LA A2 area: 23.5 cm2 RA long axis: 6.6 cm LA A4 area: 28.1 cm2 RA area: 28.3 cm2 LA length (vol): 6.1 cm RA vol: 103.7 ml LA vol: 91.3 ml RA : 50.9 ml/m2 LA vol index: 44.8 ml/m2 IVC diam: 2.4 cm RVD1 (basal): 4.3 cm RVD2 (mid): 3.5 cm TAPSE: 1.6 cm Doppler Measurements & Calculations Ao V2 max: 114.8 cm/sec LVOT Max Korey: 77.9 cm/sec Ao V2 mean: 82.9 cm/sec LV V1 max P.4 mmHg Ao max P.3 mmHg LV V1 VTI: 17.6 cm Ao mean P.1 mmHg LIZABETH(I,D): 2.2 cm2 Ao V2 VTI: 24.5 cm LIZABETH(V,D): 2.1 cm2 sev ratio: 0.72 LIZABETH indexed to BSA (cm^2/m^2): 1.1 MV E max korey: 86.9 cm/sec TR max korey: 353.8 cm/sec MV A max korey: 1.2 cm/sec TR max P.0 mmHg MV E/A: 73.3 PA V2 max: 99.3 cm/sec Med Peak E' Korey: 9.8 cm/sec PA V2 mean: 68.7 cm/sec E/E' med: 8.9 PA mean P.1 mmHg Lat Peak E' Korey: 10.6 cm/sec PA pr(Accel): 46.5 mmHg E/E' lat: 8.2 E/e' average: 8.5 MV dec time: 0.13 sec SV(LVOT): 54.5 ml Reading Physician:10:27 AM
== END ==
PROVIDERS: PCP Internal Medicine; Referring Provider Internal Medicine; Visit Provider Internal Medicine
DX: I11.0 Hypertensive heart disease with heart failure (principal); I08.3 Combined rheumatic disorders of mitral, aortic and tricuspid valves; I77.89 Other specified disorders of arteries and arterioles
CPT/HCPCS: 93306

== ENCOUNTER → 2023-08-17 09:37 | Outpatient (CLI) | payer OTHER, SELFPAY ==
[2022-11-09 20:04] VITALS: BMI 23.1
--- NOTE | 2023-08-17 | DI.US.S_ITS ---
PROCEDURE: US CAROTID DOPPLER BI INDICATIONS: BRUIT OF RIGHT CAROTID ARTERY TECHNIQUE: Color and pulse Doppler interrogation was performed of both carotid systems, with image documentation and velocity measurements. COMPARISON: None. FINDINGS: Stenosis calculations are based on SRU (Society of Radiologists in Ultrasound) criteria. Right side: Brachial blood pressure: 186/84 mm Hg. Common carotid artery peak systolic velocity: 71 cm/sec. Internal carotid artery peak systolic velocity: 168 cm/sec. Internal carotid artery end diastolic velocity: 21 cm/sec. External carotid artery peak systolic velocity: 306 cm/sec. ICA/CCA peak systolic ratio: 2.4. Mejia scale imaging description: Dense atheromatous plaquing calcifications are present at the carotid bifurcation. Percent internal carotid artery stenosis: 50-69% stenosis. Vertebral artery: Flow direction is antegrade. Left side: Brachial blood pressure: 187/82 mm Hg. Common carotid artery peak systolic velocity: 117 cm/sec. Internal carotid artery peak systolic velocity: 150 cm/sec. Internal carotid artery end diastolic velocity: 35 cm/sec. External carotid artery peak systolic velocity: 112 cm/sec. ICA/CCA peak systolic ratio: 1.3. Mejia scale imaging description: Dense atheromatous plaquing calcifications are present at the carotid bifurcation. Percent internal carotid artery stenosis: 50-69% stenosis. Vertebral artery: Flow direction is antegrade. IMPRESSION: 1. 50-69% stenosis of the bilateral internal carotid arteries. 2. Elevated velocities within the right external carotid artery suggesting a hemodynamically significant stenosis. 3. Systemic hypertension. Dictated by: Elizabeth Monahan M.D. on 08/17/2023 at 13:37 Approved by: Elizabeth Monahan M.D. on 08/17/2023 at 13:39
== END ==
PROVIDERS: PCP Internal Medicine; Referring Provider Specialist; Visit Provider Specialist
DX: I65.23 Occlusion and stenosis of bilateral carotid arteries (principal); I10 Essential (primary) hypertension; I48.20 Chronic atrial fibrillation, unspecified; E78.2 Mixed hyperlipidemia; R09.89 Other specified symptoms and signs involving the circulatory and respiratory systems
CPT/HCPCS: 93880

== ENCOUNTER → 2023-08-18 08:03 | Outpatient (CLI) | payer OTHER, SELFPAY ==
[2022-11-09 20:04] VITALS: BMI 23.1
[2023-08-18 10:09] LABS: Alanine Aminotransferase 20 IU/L (<50); Albumin 4.3 g/dL (3.5-5.0); Albumin Globulin Ratio 1.5 (1.0-2.8); Alkaline Phosphatase 106 U/L (38-126); Aspartate Aminotransferase 28 IU/L (17-59); BUN Creatinine Ratio 18.4 (6-22); Bilirubin Total 1.6 mg/dL (0.2-1.3); Blood Urea Nitrogen 19 mg/dL (9-20); Calcium 9.4 mg/dL (8.4-10.2); Carbon Dioxide 25 mmol/L (22-32); Chloride 107 mmol/L (98-107); Cholesterol 116 mg/dL (140-199); Estimated Glomerular Filt Rate > 60 mL/min (>60); Globulin 2.9 g/dL (1.7-4.1); Glucose 98 mg/dL (80-110); HDL Cholesterol 63 mg/dL (40-60); HEMOLYSIS < 15 (0-50); LDL Cholesterol Calculated 42 mg/dL (<100); Potassium 4.3 mmol/L (3.4-5.1); Sodium 141 mmol/L (137-145); Total Protein 7.2 g/dL (6.3-8.2); Triglycerides 53 mg/dL (35-150)
== END ==
PROVIDERS: PCP Internal Medicine; Referring Provider Specialist; Visit Provider Specialist
DX: I48.20 Chronic atrial fibrillation, unspecified (principal); E78.2 Mixed hyperlipidemia
CPT/HCPCS: 36415; 80053; 80061; 83735

== ENCOUNTER → 2023-09-13 08:54 | Outpatient (CLI) | payer OTHER, SELFPAY ==
[2022-11-09 20:04] VITALS: BMI 23.1
[2023-09-13 11:03] LABS: BUN Creatinine Ratio 25.7 (6-22); Blood Urea Nitrogen 28 mg/dL (9-20); Calcium 9.5 mg/dL (8.4-10.2); Carbon Dioxide 30 mmol/L (22-32); Chloride 105 mmol/L (98-107); Estimated Glomerular Filt Rate > 60 mL/min (>60); Glucose 142 mg/dL (80-110); HEMOLYSIS < 15 (0-50); Magnesium 2.3 mg/dL (1.6-2.3); Potassium 4.3 mmol/L (3.4-5.1); Sodium 140 mmol/L (137-145)
== END ==
PROVIDERS: PCP Internal Medicine; Referring Provider Specialist; Visit Provider Specialist
DX: I50.32 Chronic diastolic (congestive) heart failure (principal); I48.20 Chronic atrial fibrillation, unspecified; E78.2 Mixed hyperlipidemia
CPT/HCPCS: 36415; 80048; 83735; 84443

== ENCOUNTER → 2024-02-28 07:48 | Outpatient (CLI) | payer OTHER, SELFPAY ==
[2022-11-09 20:04] VITALS: BMI 23.1
[2024-02-28 09:12] LABS: Add Manual Diff / Slide Review NO; Basophils Absolute Auto 0 /uL (0-100); Basophils Percent Auto 0.6 % (0-2); Eosinophils Absolute Auto 100 /uL (0-450); Eosinophils Percent Auto 3.6 % (2-4); Hematocrit 42.5 % (41-53); Hemoglobin 14.6 g/dL (13.5-17.5); Lymphocytes Absolute Auto 1200 /uL (1100-4500); Lymphocytes Percent Auto 30.4 % (25-40); Mean Corpuscular HGB Conc 34.4 % (30-36); Mean Corpuscular Hemoglobin 36.7 PG (26-34); Mean Corpuscular Volume 106.5 fL (80-100); Monocytes Absolute Auto 500 /uL (0-900); Monocytes Percent Auto 13.1 % (3-14); Neutrophils Absolute Auto 2000 /uL (1500-7000); Neutrophils Percent Auto 52.3 % (50-75); Platelet Count 138 X10^3/uL (150-400); Red Blood Cell Count 3.99 X10^6/uL (4.5-5.9); White Blood Cell Count 3.9 X10^3/uL (4.5-11.0)
[2024-02-28 09:45] LABS: Albumin 4.3 g/dL (3.5-5.0); Albumin Globulin Ratio 1.5 (1.0-2.8); Aspartate Aminotransferase 28 IU/L (17-59); BUN Creatinine Ratio 21.1 (6-22); Blood Urea Nitrogen 30 mg/dL (9-20); Carbon Dioxide 27 mmol/L (22-32); Estimated Glomerular Filt Rate 50 mL/min (>60); Globulin 2.8 g/dL (1.7-4.1); HEMOLYSIS < 15 (0-50); Total Protein 7.1 g/dL (6.3-8.2)
[2024-02-28 10:05] LABS: Alanine Aminotransferase 17 IU/L (<50); Alkaline Phosphatase 69 U/L (38-126); Bilirubin Total 0.8 mg/dL (0.2-1.3); Calcium 9.3 mg/dL (8.4-10.2); Chloride 101 mmol/L (98-107); Glucose 84 mg/dL (80-110); Magnesium 2.4 mg/dL (1.6-2.3); Potassium 4.5 mmol/L (3.4-5.1); Sodium 135 mmol/L (137-145)
== END ==
LOC: LAB 07:50
PROVIDERS: PCP Internal Medicine; Referring Provider Specialist; Visit Provider Specialist
DX: E78.2 Mixed hyperlipidemia (principal); I48.20 Chronic atrial fibrillation, unspecified; I50.32 Chronic diastolic (congestive) heart failure
CPT/HCPCS: 36415; 80053; 80061; 83704; 83735; 84443; 85025

== ENCOUNTER 2024-04-01 11:13 | Emergency (ER) | payer OTHER, SELFPAY ==
[2022-11-09 20:04] VITALS: BMI 23.1
[2024-04-01] VITALS (16 sets, daily range): BP systolic 123–196; BP diastolic 73–94; PULSE 66–92; RESP 17–25; TEMP 36.7; O2SAT 94–99; BMI 23.1
--- NOTE | 2024-04-01 11:21 | EKG_ITS ---
[facility] [address] [place] [address] Test Date: 2024-04-01 Pat Name: Agustin Miller Department: Room: Gender: Male Voucher Clerk: JUDAH : 1945 Requested By: Order Number: [id number] Reading MD: Agustin Gomez MD Measurements Intervals Eaton Rate: 72 P: NE: QRS: -25 QRSD: 90 T: 21 QT: 402 QTc: 440 Interpretive Statements Atrial fibrillation Electronically Signed On 04-02-2024 13:12:24 PDT by Agustin Gomez MD
--- NOTE | 2024-04-01 11:23 | DI.RAD.S_ITS ---
PROCEDURE: XR CHEST 1V INDICATIONS: suspected sepsis TECHNIQUE: One view of the chest was acquired. COMPARISON: [facility], CR, XR CHEST 2V, 06/08/2022, 15:09. [facility], CR, XR CHEST 1V, 04/21/2023, 3:00. FINDINGS: Surgical changes and devices: None. Lungs and pleura: Lungs are clear. No pleural effusions or pneumothorax. Mediastinum: Mediastinal contours appear normal. Heart size is normal. Atherosclerotic calcification of the aortic arch is noted. Bones and chest wall: No suspicious bony lesions. Mild dextroconvex scoliotic curvature is seen. Age-appropriate bony degenerative changes are seen. Overlying soft tissues appear unremarkable. IMPRESSION: No focal infiltrates are seen. No acute cardiopulmonary abnormality is seen. Dictated by: Tobi Dial M.D. on 04/01/2024 at 11:46 Approved by: oTbi Dial M.D. on 04/01/2024 at 11:46
[2024-04-01] MEDS: SODIUM CHLORIDE 0.9% 1,000 ML 1000 ML IV (11:47)
[2024-04-01 11:49] LABS: Add Manual Diff / Slide Review NO; Basophils Absolute Auto 0 /uL (0-100); Basophils Percent Auto 0.7 % (0-2); Eosinophils Absolute Auto 200 /uL (0-450); Eosinophils Percent Auto 2.4 % (2-4); Hematocrit 45.5 % (41-53); Hemoglobin 15.6 g/dL (13.5-17.5); Lymphocytes Absolute Auto 1100 /uL (1100-4500); Lymphocytes Percent Auto 16.2 % (25-40); Mean Corpuscular HGB Conc 34.3 % (30-36); Mean Corpuscular Hemoglobin 36.4 PG (26-34); Mean Corpuscular Volume 106.1 fL (80-100); Monocytes Absolute Auto 600 /uL (0-900); Monocytes Percent Auto 9.8 % (3-14); Neutrophils Absolute Auto 4700 /uL (1500-7000); Neutrophils Percent Auto 70.9 % (50-75); Platelet Count 143 X10^3/uL (150-400); Red Blood Cell Count 4.29 X10^6/uL (4.5-5.9); Red Cell Distribution Width 14.1 % (11.6-14.8); White Blood Cell Count 6.6 X10^3/uL (4.5-11.0)
[2024-04-01 12:02] LABS: INR 2.1 (0.9-1.3); Prothrombin Time 23.7 SECONDS (9.4-12.5)
[2024-04-01] MEDS: ALBUTEROL 2.5 MG/3 ML NEB (ADULT) INH (12:02)
[2024-04-01 12:03] LABS: Lactate (Lactic Acid) 1.3 mmol/L (0.7-2.1)
[2024-04-01 12:04] LABS: Alanine Aminotransferase 26 IU/L (<50); Albumin 4.7 g/dL (3.5-5.0); Albumin Globulin Ratio 1.6 (1.0-2.8); Alkaline Phosphatase 100 U/L (38-126); Aspartate Aminotransferase 33 IU/L (17-59); BUN Creatinine Ratio 18.7 (6-22); Bilirubin Total 2.1 mg/dL (0.2-1.3); Blood Urea Nitrogen 20 mg/dL (9-20); Calcium 9.8 mg/dL (8.4-10.2); Carbon Dioxide 25 mmol/L (22-32); Chloride 107 mmol/L (98-107); Estimated Glomerular Filt Rate > 60 mL/min (>60); Globulin 2.9 g/dL (1.7-4.1); Glucose 113 mg/dL (80-110); HEMOLYSIS < 15 (0-50); Lipase 108 U/L (23-300); Potassium 4.4 mmol/L (3.4-5.1); Sodium 140 mmol/L (137-145); Total Protein 7.6 g/dL (6.3-8.2)
[2024-04-01 12:05] LABS: PTT Partial Thromboplastin Tim 43 SECONDS (25.1-36.5)
[2024-04-01 12:21] LABS: Procalcitonin 0.054 ng/mL (<0.5)
--- NOTE | 2024-04-01 12:22 | ED_ITS ---
HPI - SOB/Dyspnea General Chief Complaint: Shortness of Breath/Dyspnea Stated Complaint: Cough, SOB Time Seen by Provider: 04/01/24 11:43 History of Present Illness HPI Narrative: 78-year-old male with history of congestive heart failure, history of atrial fibrillation on chronic warfarin anticoagulation, saw his customer experience specialist couple of weeks ago Dr. Sidhu, who felt things were going well, taking same diuretic medication, no lower extremity edema, now with 2 days duration of dry cough, some increased shortness of breath. Feels similar to illness he had 2 or 3 years ago when he used an inhaler, no chronic inhaler use, no history of chronic lung disease, no oxygen use at home. No fevers or chills. No known exposure to persons with COVID and/or influenza. Related Data Home Medications Medication Instructions Recorded Confirmed doxazosin 1 mg tablet 1 mg PO BEDTIME 04/23/20 11/09/22 warfarin 5 mg tablet 5 mg PO BEDTIME 04/23/20 11/09/22 potassium chloride 20 mEq 20 meq PO DAILY PRN With Torsemide 11/13/20 11/09/22 tablet,extended release(part/cryst) (Klor-Con M) acetaminophen 650 mg 1,300 mg PO DAILY PRN Pain 11/02/22 11/09/22 tablet,extended release atorvastatin 20 mg tablet 20 mg PO BEDTIME 11/02/22 11/09/22 carvedilol 25 mg tablet 25 mg PO BID 11/02/22 11/09/22 losartan 100 mg tablet 100 mg PO BEDTIME 11/02/22 11/09/22 torsemide 10 mg tablet 10 mg PO QAM PRN Edema 11/02/22 11/09/22 Previous Rx's Medication Instructions Recorded inhalational spacing device #1 ea 05/27/22 (Aerochamber Mini) acetaminophen 325 mg tablet 650 mg (2 x 325 mg) PO Q6H PRN 11/10/22 Fever/Mild Pain (1-3) #60 tabs docusate sodium 100 mg capsule 100 mg PO BID #10 caps 11/10/22 oxycodone 5 mg tablet 5 mg PO Q4H PRN pain #40 tabs 11/10/22 albuterol sulfate 90 mcg/actuation 2 puff inhalation Q6H PRN 04/01/24 aerosol inhaler shortness of breath or wheezing #8.5 grams Allergies Allergy/AdvReac Type Severity Reaction Status Date / Time Sulfa (Sulfonamide Allergy Unknown Pt unsure, Verified 11/09/22 12:33 Antibiotics) It happened in childhood Review of Systems Review of Systems Narrative: see HPI Patient History Medical History Anticoagulated on warfarin Aortic regurgitation Atrial fibrillation Gout History of COVID-19 (05/2022) History of renal insufficiency History of stent insertion of renal artery HLD (hyperlipidemia) Hypertension Osteoarthritis of spine Pulmonary HTN RSV (acute bronchiolitis due to respiratory syncytial virus) (05/2022) Skin cancer Spinal stenosis Surgical History H/O cardiac radiofrequency ablation Hx of bilateral cataract extraction (2020) Hx of hernia repair Hx of tonsillectomy Family History Father Myocardial infarction Mother Dementia Social History household members: spouse Smoking Status: Former smoker alcohol intake: current Smoking Status: Former smoker alcohol intake frequency: 0-2 drinks per day Substance Use Type: does not use Exam Narrative Exam Narrative: GENERAL: Well-developed patient, in mild distress. HEAD: Atraumatic. Normocephalic. EYES: Pupils equal round and reactive. Extraocular motions intact. No scleral icterus. No injection or drainage. ENT: Nose without bleeding, purulent drainage. Throat without erythema, tonsillar hypertrophy or exudate. Airway patent. NECK: Trachea midline. Non tender CARDIOVASCULAR: Regular rate and rhythm without murmurs, gallops, or rubs. RESPIRATORY: Clear to auscultation. Breath sounds equal bilaterally. No wheezes, rales, or rhonchi. GASTROINTESTINAL: Abdomen soft, non-tender, nondistended. EXTREMITIES: No edema or joint tenderness. BACK: Nontender without deformity or crepitance. No flank tenderness. NEURO: AOx3. Motor functions grossly nonfocal SKIN: No rash or erythema of visible areas Initial Vital Signs Initial Vital Signs: Vital Signs Temperature 98.0 F 04/01/24 11:19 Pulse Rate 80 04/01/24 11:19 Respiratory Rate 20 04/01/24 11:19 Blood Pressure 196/94 H 04/01/24 11:19 Pulse Oximetry 95 04/01/24 11:19 Oxygen Delivery Method Room Air 04/01/24 11:19 Course Orders Ordered: Discontinued Medications Albuterol (Albuterol 2.5 Mg/3 Ml Neb (Adult)) 2.5 mg INH NOW ONE Stop: 04/01/24 11:44 Last Admin: 04/01/24 12:02 Dose: 2.5 mg Documented By: CHEO Sodium Chloride (Normal Saline 0.9%) 1,000 mls @ 1,000 mls/hr IV BOLUS ONE Stop: 04/01/24 12:22 Last Infusion: 04/01/24 12:47 Dose: Infused Documented By: Admin: 04/01/24 11:47 Dose: 1,000 mls/hr Documented By: JOVANNY Ondansetron HCl (Ondansetron 4 Mg/2 Ml Inj) 4 mg IV NOW PRN PRN Reason: Nausea And Vomiting Ondansetron HCl (Ondansetron 4 Mg Odt) 4 mg SL NOW PRN PRN Reason: Nausea And Vomiting Vital Signs Vital signs: Vital Signs - 8 hr 04/01/24 11:19 04/01/24 11:22 04/01/24 11:30 Temperature 98.0 F Pulse Rate 80 75 80 Respiratory Rate 20 25 H 25 H Blood Pressure 196/94 H Pulse Oximetry 95 97 96 Oxygen Delivery Method Room Air Room Air 04/01/24 11:31 04/01/24 11:31 04/01/24 11:49 Temperature Pulse Rate 75 77 Respiratory Rate 24 24 Blood Pressure 189/91 H Pulse Oximetry 96 97 Oxygen Delivery Method Room Air Room Air 04/01/24 12:00 04/01/24 12:00 04/01/24 12:07 Temperature Pulse Rate 79 87 Respiratory Rate 23 20 Blood Pressure 175/84 H Pulse Oximetry 96 94 Oxygen Delivery Method Room Air Room Air 04/01/24 12:40 04/01/24 12:41 04/01/24 12:41 Temperature Pulse Rate 71 Respiratory Rate 22 Blood Pressure 172/79 H Pulse Oximetry 99 98 Oxygen Delivery Method 04/01/24 13:00 04/01/24 13:00 04/01/24 13:24 Temperature Pulse Rate 68 Respiratory Rate 21 Blood Pressure 155/73 H 123/86 Pulse Oximetry 97 Oxygen Delivery Method Room Air 04/01/24 13:24 04/01/24 13:30 04/01/24 13:30 Temperature Pulse Rate 73 67 Respiratory Rate 21 18 Blood Pressure 172/91 H Pulse Oximetry 99 98 Oxygen Delivery Method Room Air 04/01/24 14:00 04/01/24 14:00 Temperature Pulse Rate 71 Respiratory Rate 21 Blood Pressure 173/79 H Pulse Oximetry 97 Oxygen Delivery Method Room Air MDM - SOB/Dyspnea Lab Data 04/01/24 11:30 04/01/24 11:30 Labs: Lab Results 04/01/24 Range/Units 11:30 WBC 6.6 (4.5-11.0) X10^3/uL RBC 4.29 L (4.5-5.9) X10^6/uL Hgb 15.6 (13.5-17.5) g/dL Hct 45.5 (41-53) % MCV 106.1 H (80-100) fL MCH 36.4 H (26-34) PG MCHC 34.3 (30-36) % RDW 14.1 (11.6-14.8) % Plt Count 143 L (150-400) X10^3/uL Neut % (Auto) 70.9 (50-75) % Lymph % (Auto) 16.2 L (25-40) % [place] % (Auto) 9.8 (3-14) % Eos % (Auto) 2.4 (2-4) % Baso % (Auto) 0.7 (0-2) % Neut # (Auto) 4700 (1494-5897) /uL Lymph # (Auto) 1100 (8191-5816) /uL [place] # (Auto) 600 (0-900) /uL Eos # (Auto) 200 (0-450) /uL Baso # (Auto) 0 (0-100) /uL PT 23.7 H (9.4-12.5) SECONDS INR 2.1 H (0.9-1.3) APTT 43 H (25.1-36.5) SECONDS Sodium 140 (137-145) mmol/L Potassium 4.4 (3.4-5.1) mmol/L Chloride 107 (98-107) mmol/L Carbon Dioxide 25 (22-32) mmol/L BUN 20 (9-20) mg/dL Creatinine 1.07 (0.66-1.25) mg/dL Estimated GFR > 60 (>60) mL/min BUN/Creatinine Ratio 18.7 (6-22) Glucose 113 H (80-110) mg/dL Lactate 1.3 (0.7-2.1) mmol/L Calcium 9.8 (8.4-10.2) mg/dL Total Bilirubin 2.1 H (0.2-1.3) mg/dL AST 33 (17-59) IU/L ALT 26 (<50) IU/L Alkaline Phosphatase 100 (38-126) U/L Total Protein 7.6 (6.3-8.2) g/dL Albumin 4.7 (3.5-5.0) g/dL Globulin 2.9 (1.7-4.1) g/dL Albumin/Globulin Ratio 1.6 (1.0-2.8) Lipase 108 (23-300) U/L Procalcitonin 0.054 (<0.5) ng/mL SARS-CoV-2 (PCR) Negative (Negative) Influenza A (RT-PCR) Flu a negative (NEGATIVE) Influenza B (RT-PCR) Flu b negative (NEGATIVE) RSV (PCR) Negative (Negative) Urine Dip Bedside Urine Glucose Negative Bedside Urine Bilirubin - Negative Bedside Urine Ketone - Negative Urine Specific [place] 1.015 Bedside Urine Occult Blood - Negative Bedside Urine pH 6.0 Bedside Urine Protein - Negative Bedside Urine Urobilinogen - Negative Bedside Urine Nitrite - Negative Bedside Urine Leukocytes - Negative Esterase Imaging Data Chest x-ray: Radiologist's Impression: [address] [address] XRay Report Signed Patient: Agustin Miller Jr MR#: [id number] : 1945 Acct:[id number] Age/Sex: 78 / M Date of Service: 04/01/24 Loc: ED Accession Number: [id number] Procedure: XR chest 1V Ordering Provider: Damian Lynn MD PROCEDURE: XR CHEST 1V INDICATIONS: suspected sepsis TECHNIQUE: One view of the chest was acquired. COMPARISON: [facility], CR, XR CHEST 2V, 06/08/2022, 15:09. [facility], CR, XR CHEST 1V, 04/21/2023, 3:00. FINDINGS: Surgical changes and devices: None. Lungs and pleura: Lungs are clear. No pleural effusions or pneumothorax. Mediastinum: Mediastinal contours appear normal. Heart size is normal. Atherosclerotic calcification of the aortic arch is noted. Bones and chest wall: No suspicious bony lesions. Mild dextroconvex scoliotic curvature is seen. Age-appropriate bony degenerative changes are seen. Overlying soft tissues appear unremarkable. IMPRESSION: No focal infiltrates are seen. No acute cardiopulmonary abnormality is seen. Dictated by: Tobi Dial M.D. on 04/01/2024 at 11:46 Approved by: Tobi Dial M.D. on 04/01/2024 at 11:46 ECG Data Attestation: I personally reviewed and interpreted this ECG as follows: Interpretation: Atrial fibrillation with ventricular response rate 72, no obvious ST segment elevation or depression changes. QRS 90. QTC 440. MDM Narrative Medical decision making narrative: 78-year-old with 2 days dry cough increasing shortness of breath, similar episode 2 years ago with upper respiratory infection that was responsive to albuterol inhaler, history of atrial fibrillation known, chronic warfarin anticoagulation, history of congestive heart failure taking same diuretic regimen, no lower extremity edema. Normal room-air sat noted, no crackles on exam, no peripheral edema on exam. Chest x-ray pending at this time. EKG shows atrial fibrillation with ventricular response rate 70s noted, no obvious ischemic changes. Trial of albuterol SVN, symptoms improved. We will send albuterol refill to his pharmacy. He has spacer from previous illness that he will use, advised 2 puffs 4 times daily next few days, then as needed. Recheck advised with the regular provider in the next 2-3 days if not improving, earlier if any change worsening symptoms or any concerns prior Discharge Plan Departure Patient Disposition: Home Clinical Impression: Acute upper respiratory infection, Shortness of breath Activity Restrictions/Additional Instructions: Recent 2 days cough with increasing shortness of breath, similar to upper respiratory infection a couple of years ago, prior inhaler use was helpful. Chest x-ray without obvious pneumonia changes. Swab for COVID/influenza negative. Breathing treatment albuterol was given, symptoms seemed improved. No lower extremity swelling, history of congestive heart failure known, taking same oral diuretic medication, seems well compensated at present. Laboratory screening studies unremarkable. Refill of albuterol inhaler sent to your pharmacy to use with your existing home spacer, 2 puffs 4 times daily for the next few days, then as needed. Recheck symptoms with your regular doctor early this next week if you are not improving. Return to this/nearest emergency department for any change worsening symptoms or any concerns prior Prescriptions: New albuterol sulfate 90 mcg/actuation HFA aerosol inhaler 2 puff inhalation Q6H PRN (Reason: shortness of breath or wheezing) Qty: 8.5 0RF No Action carvedilol 25 mg Tablet 25 mg PO BID Rx Instructions: must administer with a meal/food atorvastatin 20 mg Tablet 20 mg PO BEDTIME torsemide 10 mg Tablet 10 mg PO QAM PRN (Reason: Edema) acetaminophen 650 mg Tablet Extended Release 1,300 mg PO DAILY PRN (Reason: Pain) losartan 100 mg Tablet 100 mg PO BEDTIME acetaminophen 325 mg Tablet 650 mg PO Q6H PRN (Reason: Fever/Mild Pain (1-3)) Qty: 60 0RF docusate sodium 100 mg Capsule 100 mg PO BID Qty: 10 0RF oxycodone 5 mg tablet 5 mg PO Q4H PRN (Reason: pain) Qty: 40 0RF doxazosin 1 mg tablet 1 mg PO BEDTIME warfarin 5 mg tablet 5 mg PO BEDTIME Patient Comments: 3.75mg M,W,F/2.5mg rest Rx Instructions: Wednesday & Wednesday 5mg; All other days are 2.5mg potassium chloride [Klor-Con M20] 20 mEq tablet,ER particles/crystals 20 meq PO DAILY PRN (Reason: With Torsemide) (DME) Aerochamber Mini Spacer See Rx Instructions .Route Qty: 1 0RF Rx Instructions: As directed Referrals: Max Rangel MD [Primary Care Provider] - Stand Alone Forms: Patient Portal/API
[2024-04-01 12:56] LABS: Influenza A - CEPHEID Flu A NEGATIVE (NEGATIVE); Influenza B - CEPHEID Flu B NEGATIVE (NEGATIVE); Respiratory Syncytial Virus Negative (Negative)
[2024-04-01 12:57] LABS: COVID-19 CEPHEID 4-PLEX PCR Negative (Negative)
== END 2024-04-01 14:51 | disposition home or self-care (01) ==
PROVIDERS: Emergency Provider Emergency Medicine; PCP Internal Medicine
DX: J06.9 Acute upper respiratory infection, unspecified (principal); R06.02 Shortness of breath; Z79.01 Long term (current) use of anticoagulants; Z79.899 Other long term (current) drug therapy; Z11.52 Encounter for screening for COVID-19
CPT/HCPCS: 0241U; 36415; 71045; 80053; 81003; 83605; 83690; 84145; 85025; 85610; 85730; 87040; 93005; 94640; 96360; 99284; J7613

== ENCOUNTER 2024-08-10 10:31 | Emergency (ER) | payer OTHER, SELFPAY ==
[2022-11-09 20:04] VITALS: BMI 23.1
[2024-08-10] VITALS (23 sets, daily range): BP systolic 141–202; BP diastolic 60–92; PULSE 50–73; RESP 14; TEMP 36.4; O2SAT 95–100; BMI 23.1
--- NOTE | 2024-08-10 10:45 | ED_ITS ---
HPI - Trauma General Chief Complaint: Trauma Stated Complaint: Fell, hurt hip/back and leg on blood thinners Time Seen by Provider: 08/10/24 10:43 Source: patient Mode of arrival: Ambulatory History of Present Illness HPI narrative: 78-year-old male with a history of AFib on warfarin hypertension CHF comes into the ED from home for evaluation of persistent right-sided hip/flank pain after mechanical trip and fall approximately 1 week ago. He states that he was on the last step of a escalator his bag got stuck and he fell forward landing on his right side did have a nosebleed that stopped, he states that since then he has been having persistent/worsening pain to his right hip, was able to stand walk with his cane which is baseline. States that he checked his INR yesterday which was 4.0. Patient denies any other injuries or symptoms at this time denies any headache visual disturbances chest pain shortness of breath fever chills nausea vomiting abdominal pain or any other GI/ symptoms time. He states that he has a really big bruise to the right side of his body and wanted it ?checked out. Related Data Home Medications Medication Instructions Recorded Confirmed doxazosin 1 mg tablet 1 mg PO BEDTIME 04/23/20 11/09/22 warfarin 5 mg tablet 5 mg PO BEDTIME 04/23/20 11/09/22 potassium chloride 20 mEq 20 meq PO DAILY PRN With Torsemide 11/13/20 11/09/22 tablet,extended release(part/cryst) (Klor-Con M) acetaminophen 650 mg 1,300 mg PO DAILY PRN Pain 11/02/22 11/09/22 tablet,extended release atorvastatin 20 mg tablet 20 mg PO BEDTIME 11/02/22 11/09/22 carvedilol 25 mg tablet 25 mg PO BID 11/02/22 11/09/22 losartan 100 mg tablet 100 mg PO BEDTIME 11/02/22 11/09/22 torsemide 10 mg tablet 10 mg PO QAM PRN Edema 11/02/22 11/09/22 Previous Rx's Medication Instructions Recorded inhalational spacing device #1 ea 05/27/22 (Aerochamber Mini) acetaminophen 325 mg tablet 650 mg (2 x 325 mg) PO Q6H PRN 11/10/22 Fever/Mild Pain (1-3) #60 tabs docusate sodium 100 mg capsule 100 mg PO BID #10 caps 11/10/22 oxycodone 5 mg tablet 5 mg PO Q4H PRN pain #40 tabs 11/10/22 albuterol sulfate 90 mcg/actuation 2 puff inhalation Q6H PRN 04/01/24 aerosol inhaler shortness of breath or wheezing #8.5 grams Allergies Allergy/AdvReac Type Severity Reaction Status Date / Time Sulfa (Sulfonamide Allergy Unknown Pt unsure, Verified 08/10/24 10:34 Antibiotics) It happened in childhood Review of Systems Review of Systems Narrative: General: Denies fever, chills, weight loss HEENT: Denies headache, eye drainage, eye irritation, head trauma, sore throat, voice change Cardiovascular: Denies any chest pain, palpitations, shortness of breath, tachycardia Respiratory: Denies any shortness of breath, cough, wheeze, stridor GI/: Denies any abdominal pain, nausea, vomiting, diarrhea, bright red blood per rectum, melanotic stools, urinary frequency, urinary retention, dysuria, hematuria MSK: Tenderness to palpation of the right hip, however patient is able to stand bear weight ambulate with his cane which is baseline. He has no other tenderness to palpation of any bony prominences Skin: significant ecchymosis noted to the right hip extending to the right thigh as well as to the right flank however bilateral upper and lower extremities neurovascularly intact Neuro: Denies any headache, lightheadedness, dizziness, fainting, weakness Psych: Denies SI/HI Patient History Medical History Anticoagulated on warfarin Aortic regurgitation Atrial fibrillation Gout History of COVID-19 (05/2022) History of renal insufficiency History of stent insertion of renal artery HLD (hyperlipidemia) Hypertension Osteoarthritis of spine Pulmonary HTN RSV (acute bronchiolitis due to respiratory syncytial virus) (05/2022) Skin cancer Spinal stenosis Surgical History H/O cardiac radiofrequency ablation Hx of bilateral cataract extraction (2020) Hx of hernia repair Hx of tonsillectomy Family History Father Myocardial infarction Mother Dementia Social History household members: spouse Smoking Status: Former smoker alcohol intake: current Smoking Status: Former smoker alcohol intake frequency: 0-2 drinks per day Exam Initial Vital Signs Initial Vital Signs: Vital Signs Temperature 97.6 F 08/10/24 10:34 Pulse Rate 69 08/10/24 10:34 Respiratory Rate 14 08/10/24 10:34 Blood Pressure 187/87 H 08/10/24 10:34 Pulse Oximetry 96 08/10/24 10:34 Oxygen Delivery Method Room Air 08/10/24 10:34 Course Orders Ordered: ED Orders 08/10/24 10:43 CT cervical spine wo con Stat CT chest abd pel w con Stat CT head/brain wo con Stat 08/10/24 10:45 XR pelvis 1-2V Stat 08/10/24 10:50 CBC Auto Diff [Complete Blood Count AUTO DIFF] Stat CMP [Comprehensive Metabolic Panel] Stat Lipase Stat MAG [Magnesium] Stat PT [Prothrombin Time INR] Stat PTT Partial Thromboplastin Deuce Stat Vital Signs Vital signs: Vital Signs - 8 hr 08/10/24 10:34 08/10/24 10:42 08/10/24 10:43 Temperature 97.6 F Pulse Rate 69 66 Respiratory Rate 14 Blood Pressure 187/87 H Pulse Oximetry 96 100 97 Oxygen Delivery Method Room Air 08/10/24 10:43 08/10/24 10:45 08/10/24 11:00 Temperature Pulse Rate 67 67 Respiratory Rate Blood Pressure 200/87 H Pulse Oximetry 98 97 Oxygen Delivery Method 08/10/24 11:01 08/10/24 11:01 08/10/24 11:15 Temperature Pulse Rate 71 62 Respiratory Rate Blood Pressure 180/83 H Pulse Oximetry 97 95 Oxygen Delivery Method 08/10/24 11:30 08/10/24 11:31 08/10/24 11:31 Temperature Pulse Rate 64 64 Respiratory Rate Blood Pressure 141/60 H Pulse Oximetry 95 96 Oxygen Delivery Method 08/10/24 11:48 08/10/24 12:00 08/10/24 12:08 Temperature Pulse Rate 62 64 63 Respiratory Rate Blood Pressure Pulse Oximetry 100 99 99 Oxygen Delivery Method 08/10/24 12:08 08/10/24 12:15 08/10/24 12:30 Temperature Pulse Rate 67 56 L Respiratory Rate Blood Pressure 198/89 H Pulse Oximetry 99 99 Oxygen Delivery Method 08/10/24 12:30 08/10/24 12:39 08/10/24 12:39 Temperature Pulse Rate 73 Respiratory Rate Blood Pressure 202/90 H 198/92 H Pulse Oximetry 99 Oxygen Delivery Method 08/10/24 12:45 08/10/24 13:00 08/10/24 13:01 Temperature Pulse Rate 66 64 Respiratory Rate Blood Pressure 143/65 H Pulse Oximetry 99 97 Oxygen Delivery Method 08/10/24 13:01 08/10/24 13:15 08/10/24 13:30 Temperature Pulse Rate 59 L 60 Respiratory Rate Blood Pressure 164/74 H Pulse Oximetry 98 98 Oxygen Delivery Method 08/10/24 13:30 08/10/24 13:45 08/10/24 14:00 Temperature Pulse Rate 63 60 50 L Respiratory Rate Blood Pressure Pulse Oximetry 96 96 97 Oxygen Delivery Method 08/10/24 14:01 08/10/24 14:01 Temperature Pulse Rate 57 L Respiratory Rate Blood Pressure 157/70 H Pulse Oximetry 96 Oxygen Delivery Method MDM - Trauma Differential Diagnosis Differential diagnosis: Likely other (Contusion, fracture, intracranial hemorrhage, cervical neck fracture, hip fracture) Lab Data 08/10/24 10:50 08/10/24 10:50 Labs: Lab Results 08/10/24 Range/Units 10:50 WBC 5.5 (4.5-11.0) X10^3/uL RBC 3.43 L (4.5-5.9) X10^6/uL Hgb 12.5 L (13.5-17.5) g/dL Hct 36.0 L (41-53) % MCV 105.1 H (80-100) fL MCH 36.4 H (26-34) PG MCHC 34.6 (30-36) % RDW 14.9 H (11.6-14.8) % Plt Count 156 (150-400) X10^3/uL Neut % (Auto) 63.1 (50-75) % Lymph % (Auto) 21.3 L (25-40) % [place] % (Auto) 13.1 (3-14) % Eos % (Auto) 1.9 L (2-4) % Baso % (Auto) 0.6 (0-2) % Neut # (Auto) 3400 (6313-1509) /uL Lymph # (Auto) 1200 (0802-8414) /uL [place] # (Auto) 700 (0-900) /uL Eos # (Auto) 100 (0-450) /uL Baso # (Auto) 0 (0-100) /uL PT 50.8 H (9.4-12.5) SECONDS INR 4.7 H* (0.9-1.3) APTT 53 H (25.1-36.5) SECONDS Sodium 137 (137-145) mmol/L Potassium 4.6 (3.4-5.1) mmol/L Chloride 106 (98-107) mmol/L Carbon Dioxide 22 (22-32) mmol/L BUN 26 H (9-20) mg/dL Creatinine 1.20 (0.66-1.25) mg/dL Estimated GFR > 60 (>60) mL/min BUN/Creatinine Ratio 21.7 (6-22) Glucose 105 (80-110) mg/dL Calcium 9.3 (8.4-10.2) mg/dL Magnesium 2.0 (1.6-2.3) mg/dL Total Bilirubin 2.6 H (0.2-1.3) mg/dL AST 28 (17-59) IU/L ALT 21 (<50) IU/L Alkaline Phosphatase 83 (38-126) U/L Total Protein 7.3 (6.3-8.2) g/dL Albumin 4.6 (3.5-5.0) g/dL Globulin 2.7 (1.7-4.1) g/dL Albumin/Globulin Ratio 1.7 (1.0-2.8) Lipase 103 (23-300) U/L Imaging Data CT scan - head: Radiologist's Impression: [address] [address] [address] Scan Report Signed Patient: Agustin Miller Jr MR#: [id number] : 1945 Acct:[id number] Age/Sex: 78 / M Date of Service: 08/10/24 Loc: ED Accession Number: [id number] Procedure: CT head/brain wo con Ordering Provider: Miguel Farah D.O. PROCEDURE: CT HEAD/BRAIN WO CON INDICATIONS: trauma on warfarin TECHNIQUE: Noncontrast 4.5 mm thick angled axial sections acquired from the foramen magnum to the vertex, with coronal and sagittal reformats. For radiation dose reduction, the following was used: automated exposure control, adjustment of mA and/or kV according to patient size. COMPARISON: [facility], CT, CT CERVICAL SPINE WO CON, 08/10/2024, 11:40. FINDINGS: Image quality: Diagnostic. CSF spaces: Basal cisterns are patent. No extra-axial fluid collections. The ventricles are symmetric in size and shape. Brain: No intracranial bleeds or masses. There is cerebral volume loss for age, with resultant ventricular and sulcal prominence. There are periventricular and deep white matter chronic small vessel ischemic changes. There is intracranial internal carotid artery atherosclerosis. Skull and face: Calvarium and visualized facial bones appear intact, without suspicious lesions. Sinuses: Visualized sinuses and mastoids are clear. IMPRESSION: No acute intracranial hemorrhage is seen. No acute intracranial pathology. CT - cervical spine: Radiologist's Impression: [place] [address] CT Scan Report Signed Patient: Agustin Miller Jr MR#: [id number] : 1945 Acct:[id number] Age/Sex: 78 / M Date of Service: 08/10/24 Loc: ED Accession Number: [id number] Procedure: CT cervical spine wo con Ordering Provider: Miguel Farah D.O. PROCEDURE: CT CERVICAL SPINE WO CON INDICATIONS: trauma on warfarin TECHNIQUE: Noncontrast 3 mm thick sections acquired from the skull base to the T4 level. Sagittal and coronal reformats were then constructed. For radiation dose reduction, the following was used: automated exposure control, adjustment of mA and/or kV according to patient size. COMPARISON: [facility], CT, CT HEAD/BRAIN WO CON, 08/10/2024, 11:40. FINDINGS: Image quality: This examination is somewhat limited by quantum mottle artifact. Bones: No fractures or dislocations. Visualized superior ribs are intact. Focal degenerative change is seen involving the C1-C2 interface anteriorly. There is moderate to severe disc space narrowing seen at C3-C4, C5-C6, and C6-C7. Posteriorly directed endplate osteophytes are seen at C5-C6. Milder degenerative changes are seen elsewhere. Soft tissues: Prevertebral soft tissues are normal in thickness. No paravertebral hematomas. No apical pneumothoraces. Atherosclerotic calcification is noted. IMPRESSION: No displaced fracture or traumatic subluxation. Underlying cervical spine degenerative changes are seen, which are worst at C5- C6. CT chest abdomen and pelvis: Radiologist's Impression: [address] [address] [address] Scan Report Signed Patient: Agustin Miller Jr MR#: [id number] : 1945 Acct:[id number] Age/Sex: 78 / M Date of Service: 08/10/24 Loc: ED Accession Number: [id number] Procedure: CT chest abd pel w con Ordering Provider: Miguel Farah D.O. PROCEDURE: CT CHEST ABD PEL W CON INDICATIONS: trauma on warfarin TECHNIQUE: After the administration of intravenous contrast, 5 mm thick sections acquired from the lung apices to the symphysis. 2.5 mm thick coronal and sagittal reformats were acquired. Additional 7 mm thick coronal maximum intensity projection (MIP) reformats acquired through the lungs. Optional 10-minute delayed imaging may be performed from the kidneys to the bladder. For radiation dose reduction, the following was used: automated exposure control, adjustment of mA and/or kV according to patient size. COMPARISON: [facility], CT, CT ANGIO CHEST, 04/24/2020, 12:37. FINDINGS: Image quality: Diagnostic. CHEST: Lower Neck: No enlarged lymph nodes. Thyroid: No thyroid nodules which require sonographic evaluation. Axillae: No enlarged lymph nodes. Chest Wall: No subcutaneous gas. Lungs and Pleura: No pulmonary contusions or lacerations. No acute airspace opacities. No pneumothorax or hemothorax. A few solid pulmonary micro nodules, largest measuring 3 millimeters in the right upper lobe (series 5, image 53); these are stable from prior and therefore benign. Mild senescent changes in the lung bases. Mediastinum: No mediastinal hematomas. Heart size is enlarged. Three-vessel coronary calcifications. No pericardial effusion. Thoracic aorta and pulmonary arteries demonstrate normal size and enhancement. No mediastinal or hilar adenopathy. Esophagus is normal in caliber. No hiatal hernia. ABDOMEN: Liver: No lacerations. Gallbladder: No radiopaque gallstones or wall thickening. Biliary ducts: No biliary dilation. Pancreas: Homogenous enhancement. Spleen: Homogenous enhancement without laceration or hematoma. Calcification along the peripheral margin, likely indicating prior/remote trauma. Adrenal Glands: Symmetric enhancement. Stable 1.6 centimeter right adrenal nodule since 2019, statistically benign. Kidneys and Ureters: Symmetric enhancement. No hydronephrosis. No solid mass. No complex renal cystic lesion which requires follow up. Stomach and Bowel: Normal colonic caliber, without significant wall thickening. Colonic diverticulosis without evidence of diverticulitis. Peritoneum: No abnormal intraperitoneal fluid. No free air. Ventral Wall: No hernia. Abdominal Nodes: No retroperitoneal or mesenteric adenopathy by size criteria. Vessels: Aorta and inferior vena cava are normal in size. PELVIS: Pelvic Organs: Unremarkable. Bladder: Normal thickness. Pelvic Nodes: No enlarged lymph nodes. Miscellaneous: Small right inguinal hernia containing fat. Bones: Pelvic ring and hip joints appear intact. No displaced rib fractures. IMPRESSION: No evidence of traumatic injury to the chest, abdomen or pelvis. Other chronic findings as above. Extremity x-ray #1: Radiologist's Impression: [address] [address] XRay Report Signed Patient: Agustin Miller Jr MR#: [id number] : 1945 Acct:[id number] Age/Sex: 78 / M Date of Service: 08/10/24 Loc: ED Accession Number: [id number] Procedure: XR pelvis 1-2V Ordering Provider: Miguel Farah D.O. PROCEDURE: XR PELVIS two views. INDICATIONS: pain s/p fall TECHNIQUE: Frontal views of the pelvis and right hip were obtained. COMPARISON: None. FINDINGS: Bones: No acute fracture or dislocation. Partially visualized lumbar hardware appears intact. Mild bilateral femoral acetabular joint osteoarthritis. Soft tissues: Contrast is noted within the urinary bladder. No acute soft tissue abnormality. Nonobstructive bowel gas pattern. IMPRESSION: No acute traumatic findings. MDM Narrative Medical decision making narrative: 78-year-old male with a history of AFib on warfarin, CHF, hypertension presents for persistent pain and bruising to his right hip/flank region after mechanical trip and fall approximately 1 week [address] had [address] scan of the head neck chest abdomen and pelvis as well as x-ray of the right hip, no acute traumatic injuries, on exam patient with significant amount of ecchymosis noted, more consistent with contusion, patient INR elevated at 4.7, patient is on warfarin, instructed patient to hold his next dose and to follow up with his primary care doctor for continued treatment of his elevated INR and contusion. Patient is able to stand bear weight ambulate with his cane he is nontoxic appearing he has no focal deficits neuro intact strict return precautions given he verbalized understanding of this and agrees to being discharged home with outpatient follow up Discharge Plan Departure Patient Disposition: Home Clinical Impression: Elevated INR, Ground-level fall, Contusion of hip, right, Traumatic ecchymosis of right thigh Activity Restrictions/Additional Instructions: Please hold your next dose of warfarin please follow up with the primary care doctor Please read the discharge instructions sheet carefully and bring all papers to all doctor follow-up visits, as it may contain information that your doctor may want to see. Disease processes change and evolve, if your symptoms worsen or if you develop any new symptoms that are concerning to you please return for evaluation. Your evaluation today does not show any evidence of any life- threatening/serious illnesses requiring admission to the hospital or surgery. Please follow-up with your doctor for re-evaluation in approximately 1 day. Seek immediate medical attention for any worrisome symptoms. *If you do not have a primary care provider please contact the [facility] Resource line at [phone]. They will ask some questions about your medical history and help get you set up with a doctor in the community. Prescriptions: No Action carvedilol 25 mg Tablet 25 mg PO BID Rx Instructions: must administer with a meal/food atorvastatin 20 mg Tablet 20 mg PO BEDTIME torsemide 10 mg Tablet 10 mg PO QAM PRN (Reason: Edema) acetaminophen 650 mg Tablet Extended Release 1,300 mg PO DAILY PRN (Reason: Pain) losartan 100 mg Tablet 100 mg PO BEDTIME acetaminophen 325 mg Tablet 650 mg PO Q6H PRN (Reason: Fever/Mild Pain (1-3)) Qty: 60 0RF docusate sodium 100 mg Capsule 100 mg PO BID Qty: 10 0RF oxycodone 5 mg tablet 5 mg PO Q4H PRN (Reason: pain) Qty: 40 0RF albuterol sulfate 90 mcg/actuation HFA aerosol inhaler 2 puff inhalation Q6H PRN (Reason: shortness of breath or wheezing) Qty: 8.5 0RF doxazosin 1 mg tablet 1 mg PO BEDTIME warfarin 5 mg tablet 5 mg PO BEDTIME Patient Comments: 3.75mg M,W,F/2.5mg rest Rx Instructions: Wednesday & Wednesday 5mg; All other days are 2.5mg potassium chloride [Klor-Con M20] 20 mEq tablet,ER particles/crystals 20 meq PO DAILY PRN (Reason: With Torsemide) (DME) Aerochamber Mini Spacer See Rx Instructions .Route Qty: 1 0RF Rx Instructions: As directed Referrals: Max Rangel MD [Primary Care Provider] - Stand Alone Forms: Patient Portal/API/Survey
--- NOTE | 2024-08-10 10:45 | DI.RAD.S_ITS ---
PROCEDURE: XR PELVIS two views. INDICATIONS: pain s/p fall TECHNIQUE: Frontal views of the pelvis and right hip were obtained. COMPARISON: None. FINDINGS: Bones: No acute fracture or dislocation. Partially visualized lumbar hardware appears intact. Mild bilateral femoral acetabular joint osteoarthritis. Soft tissues: Contrast is noted within the urinary bladder. No acute soft tissue abnormality. Nonobstructive bowel gas pattern. IMPRESSION: No acute traumatic findings. Dictated by: Carloz Garcia M.D. on 08/10/2024 at 12:59 Approved by: Carloz Garcia M.D. on 08/10/2024 at 13:01
[2024-08-10 11:06] LABS: Add Manual Diff / Slide Review NO; Basophils Absolute Auto 0 /uL (0-100); Basophils Percent Auto 0.6 % (0-2); Eosinophils Absolute Auto 100 /uL (0-450); Eosinophils Percent Auto 1.9 % (2-4); Hemoglobin 12.5 g/dL (13.5-17.5); Lymphocytes Absolute Auto 1200 /uL (1100-4500); Lymphocytes Percent Auto 21.3 % (25-40); Mean Corpuscular HGB Conc 34.6 % (30-36); Mean Corpuscular Hemoglobin 36.4 PG (26-34); Mean Corpuscular Volume 105.1 fL (80-100); Monocytes Absolute Auto 700 /uL (0-900); Monocytes Percent Auto 13.1 % (3-14); Neutrophils Absolute Auto 3400 /uL (1500-7000); Neutrophils Percent Auto 63.1 % (50-75); Platelet Count 156 X10^3/uL (150-400); Red Blood Cell Count 3.43 X10^6/uL (4.5-5.9); Red Cell Distribution Width 14.9 % (11.6-14.8); White Blood Cell Count 5.5 X10^3/uL (4.5-11.0)
[2024-08-10 11:11] LABS: Prothrombin Time 50.8 SECONDS (9.4-12.5)
[2024-08-10 11:14] LABS: PTT Partial Thromboplastin Tim 53 SECONDS (25.1-36.5)
[2024-08-10 11:22] LABS: INR 4.7 (0.9-1.3)
[2024-08-10 11:24] LABS: Alanine Aminotransferase 21 IU/L (<50); Albumin 4.6 g/dL (3.5-5.0); Albumin Globulin Ratio 1.7 (1.0-2.8); Alkaline Phosphatase 83 U/L (38-126); Aspartate Aminotransferase 28 IU/L (17-59); BUN Creatinine Ratio 21.7 (6-22); Bilirubin Total 2.6 mg/dL (0.2-1.3); Blood Urea Nitrogen 26 mg/dL (9-20); Calcium 9.3 mg/dL (8.4-10.2); Carbon Dioxide 22 mmol/L (22-32); Chloride 106 mmol/L (98-107); Estimated Glomerular Filt Rate > 60 mL/min (>60); Globulin 2.7 g/dL (1.7-4.1); Glucose 105 mg/dL (80-110); HEMOLYSIS < 15 (0-50); Lipase 103 U/L (23-300); Potassium 4.6 mmol/L (3.4-5.1); Sodium 137 mmol/L (137-145); Total Protein 7.3 g/dL (6.3-8.2)
== END 2024-08-10 14:31 | disposition home or self-care (01) ==
PROVIDERS: Emergency Provider Student in an Organized Health Care Education/Training Program; PCP Internal Medicine
DX: S70.11XA Contusion of right thigh, initial encounter (principal); S70.01XA Contusion of right hip, initial encounter; R79.1 Abnormal coagulation profile; S09.90XA Unspecified injury of head, initial encounter; W10.0XXA Fall (on)(from) escalator, initial encounter; I48.91 Unspecified atrial fibrillation; Z79.01 Long term (current) use of anticoagulants; I11.0 Hypertensive heart disease with heart failure; I50.9 Heart failure, unspecified; M54.50 Low back pain, unspecified
CPT/HCPCS: 36415; 70450; 71260; 72125; 72170; 74177; 80053; 83690; 83735; 85025; 85610; 85730; 99284; 99285; Q9967

== ENCOUNTER → 2024-08-22 09:51 | Outpatient (CLI) | payer OTHER, SELFPAY ==
[2022-11-09 20:04] VITALS: BMI 23.1
[2024-08-22 10:53] LABS: Alanine Aminotransferase 21 IU/L (<50); Albumin 4.8 g/dL (3.5-5.0); Albumin Globulin Ratio 1.8 (1.0-2.8); Alkaline Phosphatase 87 U/L (38-126); Aspartate Aminotransferase 28 IU/L (17-59); BUN Creatinine Ratio 26.4 (6-22); Bilirubin Total 2.2 mg/dL (0.2-1.3); Blood Urea Nitrogen 33 mg/dL (9-20); Calcium 9.5 mg/dL (8.4-10.2); Carbon Dioxide 24 mmol/L (22-32); Chloride 108 mmol/L (98-107); Cholesterol 129 mg/dL (140-199); Estimated Glomerular Filt Rate 58 mL/min (>60); Globulin 2.6 g/dL (1.7-4.1); Glucose 114 mg/dL (80-110); HDL Cholesterol 72 mg/dL (40-60); HEMOLYSIS < 15 (0-50); LDL Cholesterol Calculated 44 mg/dL (<100); Magnesium 2.3 mg/dL (1.6-2.3); Potassium 4.2 mmol/L (3.4-5.1); Sodium 143 mmol/L (137-145); Total Protein 7.4 g/dL (6.3-8.2); Triglycerides 67 mg/dL (35-150)
== END ==
LOC: LAB 09:53
PROVIDERS: PCP Family Medicine; Referring Provider Specialist; Visit Provider Specialist
DX: I48.20 Chronic atrial fibrillation, unspecified (principal); E78.2 Mixed hyperlipidemia
CPT/HCPCS: 36415; 80053; 80061; 83735

== ENCOUNTER → 2025-03-28 09:06 | Outpatient (CLI) | payer OTHER, SELFPAY ==
[2022-11-09 20:04] VITALS: BMI 23.1
--- NOTE | 2025-03-28 09:07 | DI.NM.S_ITS ---
PROCEDURE: NM MYA PERF SPECT REST & STR Rest and exercise myocardial perfusion SPECT with gated imaging and ejection fraction RADIOPHARMACEUTICAL: 25.9 mCi Tc-99m sestamibi IV at rest and 26.0 mCi Tc-99m sestamibi IV at peak exercise. A 2 day-protocol was performed. INDICATIONS: Exertional dyspnea PQRS ATTESTATIONS: Measure 322 - Is this imaging test primarily performed on a low-risk surgery patient for preoperative evaluation within 30 days preceding their low-risk non-cardiac surgery? Low-risk surgery is defined as cardiac or myocardial infarction less than 1%, including (but not limited to) endoscopic procedures, superficial procedures, cataract surgery, and excisional breast surgery: Answer: No Measure 323 - Is this imaging test performed primarily for the monitoring of an asymptomatic patient who had percutaneous coronary intervention on the visit date or within 2 years of the visit date? Answer: No Measure 324 - Is this imaging test performed primarily for the initial detection and risk assessment on an asymptomatic, low coronary heart disease patient? Low CHD risk definition = clinicians should consider the maximum number of available patient factors used to estimate risk based on [place] (ATP III criteria), typically age, gender, diabetes, smoking status, and use of blood pressure medication, and integrate age appropriate estimates for missing elements, such as LDL or standard blood pressure. Answer: No TECHNIQUE: Radiopharmaceutical was injected at peak stress test, and also at rest. SPECT images were obtained. SPECT myocardial perfusion images were displayed in short axis, horizontal long axis, and vertical long axis views. Gated images were reviewed using [employer] software. COMPARISON: None. CARDIAC STRESS: A standard Edgardo treadmill exercise tolerance test was performed by the patient under the supervision of an attending staff. The patient exercised for 4 minutes and 20 seconds; functional aerobic impairment (AYLEEN) is +3%. Hemodynamic data: There is normal blood pressure and heart rate response to exercise stress. Patient achieved 108% of maximum predicted heart rate at peak exercise. Symptoms: Patient denied chest pain during exercise. EKG: No diagnostic EKG changes of ischemia; frequent nonsustained polymorphic ventricular tachycardia noted during recovery with longest duration of 6 beats. FINDINGS: Raw data: There is good myocardial labeling by radiotracer. No significant motion artifacts. Dcyl-oj-dpcop ratio is 0.10 (normal is less than 0.38 for sestamibi tracer, and less than 0.50 for thallium tracer). Left ventricle function: Gated images demonstrate normal left ventricle wall thickening. No segmental wall motion abnormality. No transient ischemic dilation; TID is 0.92 (normal less than 1.3). The left ventricle resting end-diastolic volume is 109 mL. Left ventricle stress ejection fraction is 82%; normal values are above 45%. Myocardial perfusion: Resting images demonstrated mild hypoperfusion in the inferior segment. The stress images demonstrated the same mild hypoperfusion in the inferior segment. No perfusion defects were noted in the prone images. IMPRESSION: 1. Equivocal exercise myocardial perfusion scan for ischemia due to presence of polymorphic nonsustained ventricular tachycardia during recovery but no ischemia nor infarction noted on myocardial perfusion images. 2. Reduced exercise capacity. 3. When compared with previous stress test, nonsustained ventricular tachycardia is now present. Dictated by: Mikhail Zavaleta M.D. on 04/06/2025 at 12:05 Approved by: Mikhail Zavaleta M.D. on 04/06/2025 at 12:08
== END ==
LOC: NUCM 09:06
PROVIDERS: PCP Family Medicine; Referring Provider Specialist; Visit Provider Specialist
DX: R00.0 Tachycardia, unspecified (principal); R06.09 Other forms of dyspnea; I10 Essential (primary) hypertension; I48.20 Chronic atrial fibrillation, unspecified; E78.2 Mixed hyperlipidemia; I65.23 Occlusion and stenosis of bilateral carotid arteries
CPT/HCPCS: 78452; 93017; A9502

== ENCOUNTER → 2025-04-11 07:40 | Outpatient (CLI) | payer OTHER, SELFPAY ==
[2022-11-09 20:04] VITALS: BMI 23.1
[2025-04-11 09:00] LABS: Blood Urea Nitrogen 26 mg/dL (9-20); Calcium 9.7 mg/dL (8.4-10.2); Carbon Dioxide 27 mmol/L (22-32); Chloride 104 mmol/L (98-107); Estimated Glomerular Filt Rate > 60 mL/min (>60); Glucose 115 mg/dL (70-99); HEMOLYSIS < 15 (0-50); Potassium 4.6 mmol/L (3.4-5.1); Sodium 139 mmol/L (137-145)
== END ==
PROVIDERS: PCP Family Medicine; Referring Provider Family Medicine; Visit Provider Specialist
DX: I10 Essential (primary) hypertension (principal)
CPT/HCPCS: 36415; 80048